=== PATIENT | female | born 1990 | race Caucasian/White ===

== ENCOUNTER 2018-10-06 16:07 | Outpatient (CLI) | payer OTHER, SELFPAY ==
[2018-10-06 16:25] LABS: HCT 40.8 % (36.0-46.0); HGB 13.4 g/dL (12.0-15.5); Mean Corp. HGB Concentration 32.8 g/dL (32.0-36.0); Mean Corpuscular Hemoglobin 30.3 pg (27.0-33.0); Mean Corpuscular Volume 92.3 fL (80-95); Mean Platelet Volume 9.6 fL (8.0-11.0); Platelet Count 255 x1000/uL (130-400); RBC 4.42 m/cumm (4.00-5.20); RBC Distribution Width 12.4 % (11.7-14.6); White Blood Cell Count 7.97 k/cumm (4.4-10.8)
[2018-10-06 18:48] LABS: ALT 17 U/L (12-78); AST 11 U/L (15-37); Albumin 3.8 g/dL (3.4-5.0); Alkaline Phosphatase 53 U/L (46-116); Anion Gap 7.8 mmol/L (3-11); BUN 14 mg/dL (7-18); Bilirubin, Total 0.2 mg/dL (0.2-1.0); CO2 28.2 mmol/L (21.0-32.0); CREATININE 0.76 mg/dL (0.55-1.02); Calcium 9.3 mg/dL (8.5-10.1); Chloride 105 mmol/L (98-107); Glucose 84 mg/dL (70-100); Potassium 4.1 mmol/L (3.5-5.1); Sodium 141 mmol/L (136-145); TSH (W/Ref FT4) 2.53 uIU/mL (0.358-3.74); Total Protein 7.1 g/dL (6.4-8.2); Vitamin B12 453 pg/mL (193-986)
[2018-10-08 04:57] LABS: Vitamin D 25 Total 35.1 ng/ml (30-100)
== END 2018-10-06 16:27 ==
PROVIDERS: PCP Nurse Practitioner; Visit Provider Nurse Practitioner
DX: R42 Dizziness and giddiness (principal); R26.89 Other abnormalities of gait and mobility; R53.83 Other fatigue
CPT/HCPCS: 36415; 80053; 82306; 85027; 82607; 84443

== ENCOUNTER 2018-10-21 17:07 | Outpatient (REF) | payer OTHER, SELFPAY ==
[2018-10-23 13:42] LABS: Chlamydia Result Negative; GC Result Negative; Specimen Description CERVIX
== END 2018-10-21 17:27 ==
LOC: LBN 17:07
PROVIDERS: PCP Nurse Practitioner; Visit Provider Nurse Practitioner
DX: N89.8 Other specified noninflammatory disorders of vagina (principal)
CPT/HCPCS: 87491; 87591; 87480; 87510; 87660

== ENCOUNTER 2018-12-31 02:27 | Outpatient (CLI) | payer OTHER, SELFPAY ==
[2018-12-31 11:20] LABS: Abs Immature Grans 0.01 k/cumm (0.0-0.09); Absolute Basophil Count 0.05 k/cumm (0.0-0.2); Absolute Eosinophil Count 0.18 k/cumm (0.0-0.7); Absolute Lymphocyte Count 1.94 k/cumm (1.2-3.4); Absolute Monocyte Count 0.45 k/cumm (0.11-0.7); Absolute Neutrophil Count 2.38 k/cumm (1.2-6.7); Eosinophils % 3.6; HCT 44.2 % (36.0-46.0); HGB 14.4 g/dL (12.0-15.5); Immature Grans % 0.2; Lymphocytes % 38.7; Mean Corp. HGB Concentration 32.6 g/dL (32.0-36.0); Mean Corpuscular Hemoglobin 29.7 pg (27.0-33.0); Mean Corpuscular Volume 91.1 fL (80-95); Neutrophils % 47.5; Platelet Count 276 x1000/uL (130-400); RBC 4.85 m/cumm (4.00-5.20); RBC Distribution Width 12.6 % (11.7-14.6); White Blood Cell Count 5.01 k/cumm (4.4-10.8)
[2018-12-31 11:27] LABS: Iron 124 ug/dL (50-175); Total Iron Binding Capacity 314 ug/dL (250-450); Transferrin Sat 39 % (15-50)
[2018-12-31 12:00] LABS: ALT 25 U/L (12-78); AST 15 U/L (15-37); Albumin 4.3 g/dL (3.4-5.0); Alkaline Phosphatase 55 U/L (46-116); Anion Gap 9.6 mmol/L (3-11); BUN 12 mg/dL (7-18); Bilirubin, Total 0.5 mg/dL (0.2-1.0); CO2 27.4 mmol/L (21.0-32.0); CREATININE 0.68 mg/dL (0.55-1.02); Calcium 9.7 mg/dL (8.5-10.1); Chloride 103 mmol/L (98-107); Ferritin 91 ng/mL (8-388); Glucose 74 mg/dL (70-100); Potassium 4.4 mmol/L (3.5-5.1); Sodium 140 mmol/L (136-145); TSH 2.45 uIU/mL (0.358-3.74); Total Protein 7.4 g/dL (6.4-8.2); Vitamin B12 593 pg/mL (193-986)
[2018-12-31 12:02] LABS: Folate > 20.0 ng/mL (8.6-20.0)
[2018-12-31 13:00] LABS: Hemoglobin A1C 5.2 % (4.5-6.2)
[2018-12-31 20:55] LABS: T3,Free 4.5 pg/ml (2.8-5.3)
[2019-01-01 09:45] LABS: Homocysteine 6.4 umol/L (4.5-12.4)
[2019-01-01 10:13] LABS: Thyroglobulin Antibody 18 U/mL (<61); Thyroperoxidase Antibody <28 U/mL (<61)
[2019-01-04 16:06] LABS: MTHFR A1298C Mutation Analysis Heterozygous (Negative); Methylenetetrahydrofol Reduc M Negative (Negative)
== END 2018-12-31 02:47 ==
PROVIDERS: PCP Nurse Practitioner; Visit Provider Naturopath
DX: F41.9 Anxiety disorder, unspecified (principal); G25.81 Restless legs syndrome; R53.83 Other fatigue; R35.0 Frequency of micturition
CPT/HCPCS: 36415; 80053; 81291; 83090; 86376; 82607; 82728; 82746; 83036; 83540; 83550; 84443; 84481; 85025

== ENCOUNTER 2019-02-03 18:49 | Emergency (ER) | payer OTHER, SELFPAY ==
[2019-02-03 19:01] VITALS: BP 122/76; PULSE 88; RESP 20; TEMP 36.6; O2SAT 100
--- NOTE | 2019-02-03 20:15 | DI.CT_ITS ---
SYMPTOM/DIAGNOSIS: TRAUMA, HEADACHE CRANIAL CT: A noncontrast enhanced examination was performed. There is no evidence of an intra or extra axial hemorrhage. There is no evidence of a mass or midline shift. The ventricles are normal. There is no evidence of a skull fracture. The sinuses are intact. There is no mastoid effusion. The soft tissues are unremarkable. SUMMARY: No acute intracranial abnormality is demonstrated.
--- NOTE | 2019-02-03 20:15 | DI.RAD_ITS ---
SYMPTOM/DIAGNOSIS: TRAUMA ELBOW PAIN RIGHT ELBOW: There is no evidence of a fracture or dislocation.
--- NOTE | 2019-02-03 20:24 | ED.GENADUL_ITS ---
Discharge Plan Disposition Patient Disposition: HOME Condition: Good Discharge Details Chief Complaint: HeadInjury Clinical Impression: Closed head injury, Contusion of elbow Primary Care Provider: Earline Fitch ED Provider: Alban Rodriguez Home Meds and New Rx's Prescriptions: Continued sertraline 50 MG tablet 150 mg PO DAILY Qty: 270 RF: 3 Mirena 1 EACH intrauterine device RF: 0 Discharge Instructions Instructions: Head Injury (ED) Additional Instructions: You may use ibuprofen or acetaminophen for headaches. Should take it easy for the next day or 2 and tell headaches resolve. If you have continued headache, fogginess, nausea next week may want to follow-up for concussion. Return to ED if you develop acute neurologic changes, severe/worsening headache, persistent vomiting. Referrals: Earline Fitch, ELECT[employer] TECHNOLOGY DEPARTMENT CHAIR [Primary Care Provider] - Medical Decision Making <Gia Rivera MD - Last Filed: 02/03/19 20:54> Pili Kasper is a 28 y/o woman with h/o anxiety, GERD who presented to the emergency department with headache and elbow pain after falling from a horse and hitting her head. On exam Pt is well and non-toxic appearing. Neuro exam is grossly non-focal. Cervical spine NTTP, full painless ROM. Elbow with bony TTP over the lateral epicondyle. Concern for intracranial bleed vs concussion, possible elbow fx. Exam/hx not c/w significant trauma otherwise to the extremities, spine, thorax, abdomen. Plan for CT head, elbow xray. Pt signed out to Dr. Rodriguez at time of shift change with CT head, xray pending. Medical Records Medical records reviewed: Yes I reviewed the patient's medical records. <Alban Rodriguez MD - Last Filed: 02/03/19 21:50> Patient signed out to me pending CT scan and elbow x-ray status post falling off a horse. Head CT and elbow x-ray are read as negative for any acute trauma per radiology prelim. Patient reevaluated and has complaint of mild headache but nothing else. He is neurologically intact. We discussed signs and symptoms to watch for. Otherwise use Tylenol Motrin for pain. Follow-up with primary care next week if continued headaches, fogginess, nausea. Return to ED for acute neurologic changes or other concerns. HPI <Gia Rivera MD - Last Filed: 02/03/19 20:54> General Mode of arrival: ambulatory . Date/Time Provider Initiated Documentation: 02/03/19 19:14 . Limitations to Documentation: no limitations . Information obtained by: patient, RN notes reviewed and old records reviewed . HPI Narrative: Pili Kasper is a 28 y/o woman with anxiety, gerd presenting to the emergency department with headache. Pt reports that this evening she was riding her horse, when the horse stopped short at a jump and Pt went forward. She fell to the ground, hitting the back of her head. No LOC, no vomiting. Was previously in her usual state of health. Pt reports that she noted blurry vision after the fall, which has improved. She reports headache and photophobia increasing over time. She also reports right elbow pain since the fall, no other injury or pain, no SOB, no cough, no skin wound, no numbness/weakness. Was previously well and in her usual state of health. Related Data Home Medications Medication Instructions Recorded Confirmed Mirena 09/14/17 11/24/18 sertraline 150 mg PO DAILY #270 tab-cap 02/19/18 02/03/19 Previous Rx's Medication Instructions Recorded sertraline 150 mg PO DAILY #270 tab-cap 02/19/18 Allergies Allergy/AdvReac Type Severity Reaction Status Date / Time Bee Sting Allergy Unknown Uncoded 02/03/19 19:13 General Stated Complaint: HeadInjury ROCHELLE: 3 Review of Systems <Gia Rivera MD - Last Filed: 02/03/19 20:54> Review of Systems Constitutional: denies fevers Eyes: denies eye pain, reprots blurry vision now resolved ENT: denies facial pain, dental pain, sore throat Cardiovascular: denies chest pain Respiratory: denies SOB, cough GI: denies abdominal pain, vomiting, diarrhea : denies flank pain MSK: denies back pain, neck pain, reports right elbow pain Skin: denies rash, wound Neuro: denies numbness, weakness, reports headache PFSH <Gia Rivera MD - Last Filed: 02/03/19 20:54> Medical History Abnormal Pap smear of cervix Ovarian cyst Anxiety and depression (Acute 12/19/17) Dysmenorrhea (Acute 11/11/14) Anxiety (Resolved) Social History Smoking/Tobacco Use Status: Never Alcohol Intake: current Alcohol Intake frequency: a few times a week Drug use: Never Household members: significant other 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 Seatbelt use: always Working smoke detector in home: Yes Carbon monox detector in home: Yes Firearms in home: Yes Firearms unloaded and locked: No Do you feel safe at home: Yes Do you feel safe in your relationship?: Yes Exam <Gia Rivera MD - Last Filed: 02/03/19 20:54> Narrative Exam Narrative: Constitutional: well and [id number], pleasant, conversing normally HENT: head atraumatic/normocephalic/normal inspection, mucous membranes moist Eyes: conjunctiva normal, sclera normal, pupils 3mm b/l ERRLA, EOMI Neck: no stridor, full painless ROM, trachea midline, no cervical spine TTP Resp: normal work of breathing Cardio: normal rate, normal rhythm Skin: warm, dry, normal color, no rash Neuro: alert, not altered, grossly non-focal, normal tone Ext: no edema Psych: normal mood, normal affect, normal behavior Course <Gia Rivera MD - Last Filed: 02/03/19 20:54> Vital Signs Temperature 36.6 C 02/03/19 19:01 Pulse 88 02/03/19 19:01 Respiratory Rate 20 02/03/19 19:01 Blood Pressure 122/76 02/03/19 19:01 Pulse Oximetry 100 02/03/19 19:01 Temperature 36.6 C 02/03/19 19:01 Temperature Source Tympanic 02/03/19 19:01 Pulse 88 02/03/19 19:01 Respiratory Rate 20 02/03/19 19:01 Respiratory Effort Non-Labored 02/03/19 19:07 Respiratory Depth Normal 02/03/19 19:07 Respiratory Pattern Irregular 02/03/19 19:07 Blood Pressure 122/76 02/03/19 19:01 Blood Pressure Position Sitting 02/03/19 19:01 Pulse Oximetry 100 02/03/19 19:01 Oxygen Delivery Method Room Air 02/03/19 19:01 Oxygen Flow Rate 0 02/03/19 19:01 Pain Level 7 02/03/19 19:01 Sign Out <Gia Rivera MD - Last Filed: 02/03/19 20:54> Sign Out Data: Sign Out Comment: Pt signed out to Dr. Rodriguez at shift change with CT head, elbow xray pending Last updated by Gia Rivera MD at 02/03/19 20:38
--- NOTE | 2019-02-03 21:26 | DI.VRAD_ITS ---
EXAM: CT Head Without Contrast EXAM DATE/TIME: 02/03/2019 8:16 PM CLINICAL HISTORY: 28 years old, female; Injury or trauma; Initial encounter; Blunt trauma (contusions or hematomas); Consciousness not specified; Injury date: 02/03/2019; Injury details: Fall from horse TECHNIQUE: Imaging protocol: Axial computed tomography images of the head without contrast. Coronal and sagittal reformatted images were created and reviewed. Radiation optimization: All CT scans at this facility use at least one of these dose optimization techniques: automated exposure control; mA and/or kV adjustment per patient size (includes targeted exams where dose is matched to clinical indication); or iterative reconstruction. COMPARISON: No relevant prior studies available. FINDINGS: Brain: No evidence for acute transcortical infarct. No mass effect or midline shift. No extra-axial collection. No acute intracranial hemorrhage. Basal cisterns are patent. Ventricles: Normal. No ventriculomegaly. Bones/joints: Unremarkable. No acute fracture. Sinuses: Visualized sinuses are unremarkable. No fluid levels. Mastoid air cells: Visualized mastoid air cells are well aerated. No mastoid effusion. Soft tissues: Unremarkable. IMPRESSION: No acute intracranial hemorrhage or mass effect. Dictated and Authenticated by: Andrez Cortes MD. Ordering:BERRY Nielsen MD
--- NOTE | 2019-02-03 21:36 | DI.VRAD_ITS ---
EXAM: XR Right Elbow EXAM DATE/TIME: 02/03/2019 8:16 PM CLINICAL HISTORY: 28 years old, female; Injury or trauma; Initial encounter; Blunt trauma (contusions or hematomas; Elbow; Right; Injury date: 02/03/2019; Injury details: Fall from horse TECHNIQUE: Imaging protocol: XR Right elbow. Views: 3 or more views. COMPARISON: No relevant prior studies available. FINDINGS: Bones/joints: Joint spaces are maintained. No appreciable elbow joint effusion. No acute fracture or dislocation. Soft tissues: No radiopaque foreign body. IMPRESSION: No acute fracture or dislocation. Dictated and Authenticated by: Andrez Cortes MD. Ordering:BERRY Nielsen MD
[2019-02-03 21:56] VITALS: BP 122/76; PULSE 86; RESP 16; O2SAT 100
== END 2019-02-03 21:56 | disposition home or self-care (01) ==
PROVIDERS: Emergency Provider Emergency Medicine; PCP Nurse Practitioner
DX: S06.0X0A Concussion without loss of consciousness, initial encounter (principal); S50.01XA Contusion of right elbow, initial encounter; V80.010A Animal-rider injured by fall from or being thrown from horse in noncollision accident, initial encounter
CPT/HCPCS: 99284; 70450; 73080

== ENCOUNTER 2019-02-05 11:49 | Outpatient (CLI) | payer OTHER, SELFPAY ==
--- NOTE | 2019-02-05 12:00 | DI.RAD_ITS ---
SYMPTOM/DIAGNOSIS: HEAD TRAUMA BY HORSE (2ND INJURY IN 2 DAYS) S09.90XA R51 LEFT MANDIBLE: There is an oblique fracture involving the neck of the left mandible. There is overriding of the fracture. There also appears to be lateral angulation of the fracture. The left temporomandibular joint appears intact. No other fractures appreciated. IMPRESSION: Fracture involving the neck of the left mandible as described above.
== END 2019-02-05 12:09 ==
PROVIDERS: PCP Nurse Practitioner; Visit Provider Nurse Practitioner Adult Health
DX: R51 Headache (principal); R68.84 Jaw pain; S02.612A Fracture of condylar process of left mandible, initial encounter for closed fracture
CPT/HCPCS: 70110

== ENCOUNTER 2019-03-04 18:33 | Observation (INO) | payer OTHER, SELFPAY ==
[2019-03-04] VITALS (7 sets, daily range): BP systolic 101; BP diastolic 65–66; PULSE 90–101; RESP 16–21; TEMP 36.6–37.3; O2SAT 98–100
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
[2019-03-04 19:13] LABS: Abs Immature Grans 0.05 k/cumm (0.0-0.09); Absolute Basophil Count 0.03 k/cumm (0.0-0.2); Absolute Lymphocyte Count 1.67 k/cumm (1.2-3.4); Absolute Monocyte Count 0.65 k/cumm (0.11-0.7); Absolute Neutrophil Count 10.45 k/cumm (1.2-6.7); Basophils % 0.2; Eosinophils % 0.8; HGB 14.8 g/dL (12.0-15.5); Immature Grans % 0.4; Lymphocytes % 12.9; Mean Corp. HGB Concentration 33.6 g/dL (32.0-36.0); Mean Corpuscular Hemoglobin 30.3 pg (27.0-33.0); Mean Platelet Volume 9.5 fL (8.0-11.0); Neutrophils % 80.7; Platelet Count 314 x1000/uL (130-400); RBC 4.89 m/cumm (4.00-5.20); RBC Distribution Width 12.8 % (11.7-14.6); White Blood Cell Count 12.95 k/cumm (4.4-10.8)
[2019-03-04] MEDS: Ketorolac 30 MG/ML VIAL IVP (19:17)
[2019-03-04] MEDS: Omnipaque 350 MG/ML 100 ML BTL IJ (19:32)
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
[2019-03-04 19:59] LABS: ALT 22 U/L (12-78); AST 21 U/L (15-37); Albumin 4.6 g/dL (3.4-5.0); Alkaline Phosphatase 68 U/L (46-116); Anion Gap 11.7 mmol/L (3-11); BUN 14 mg/dL (7-18); Bilirubin, Total 0.3 mg/dL (0.2-1.0); CO2 25.3 mmol/L (21.0-32.0); CREATININE 0.61 mg/dL (0.55-1.02); Calcium 9.8 mg/dL (8.5-10.1); Chloride 102 mmol/L (98-107); Glucose 81 mg/dL (70-100); Potassium 3.4 mmol/L (3.5-5.1); Sodium 139 mmol/L (136-145); Total Protein 8.3 g/dL (6.4-8.2)
[2019-03-04] MEDS: Normal Saline 1,000 ML 30 ML IV (22:20)
[2019-03-05 00:30] VITALS: BP 107/69; PULSE 72; RESP 18; TEMP 37; O2SAT 100
[2019-03-05] MEDS: Acetaminophen 325 MG TAB 650 MG PO ×3 (00:30→13:37)
[2019-03-05 05:35] VITALS: BP 110/68; PULSE 77; RESP 19; TEMP 37.2; O2SAT 100
[2019-03-05] MEDS: Normal Saline Flush 10 ML SYR IVP ×2 (06:50→13:36)
[2019-03-05] MEDS: Ketorolac 30 MG/ML VIAL IVP ×2 (06:50→13:37)
--- NOTE | 2019-03-05 08:10 | DI.RAD_ITS ---
SYMPTOMS/DIAGNOSIS: LEFT PNEUMOTHORAX CHEST X-RAY, PA AND LATERAL: Pneumothorax occupies approximately 15-20% of the left hemithorax. There is a small left pleural effusion. The lungs are otherwise clear. Left rib and transverse process fractures are best appreciated on the CT scan of the chest, abdomen and pelvis. IMPRESSION: Left pneumothorax.
[2019-03-05 08:27] LABS: Abs Immature Grans 0.03 k/cumm (0.0-0.09); Absolute Basophil Count 0.01 k/cumm (0.0-0.2); Absolute Eosinophil Count 0.18 k/cumm (0.0-0.7); Absolute Lymphocyte Count 1.73 k/cumm (1.2-3.4); Absolute Monocyte Count 0.68 k/cumm (0.11-0.7); Basophils % 0.1; Eosinophils % 2.3; HCT 41.4 % (36.0-46.0); HGB 13.5 g/dL (12.0-15.5); Immature Grans % 0.4; Lymphocytes % 21.7; Mean Corp. HGB Concentration 32.6 g/dL (32.0-36.0); Mean Corpuscular Hemoglobin 30.1 pg (27.0-33.0); Mean Corpuscular Volume 92.2 fL (80-95); Mean Platelet Volume 10.1 fL (8.0-11.0); Monocytes % 8.5; Platelet Count 287 x1000/uL (130-400); RBC 4.49 m/cumm (4.00-5.20); White Blood Cell Count 7.99 k/cumm (4.4-10.8)
[2019-03-05 08:29] LABS: Absolute Neutrophil Count 5.35 k/cumm (1.2-6.7)
[2019-03-05 08:40] VITALS: BP 116/73; PULSE 81; RESP 18; TEMP 36.3; O2SAT 99
[2019-03-05 11:10] VITALS: BP 106/72; PULSE 81; RESP 18; TEMP 36.4; O2SAT 98
[2019-03-05] MEDS: Bupivacaine 0.25% Pres-Free 30 ML VIAL (11:32)
[2019-03-05] MEDS: Bupivacaine LIPOSOME/PF 133 MG/10 ML VIAL IJ (11:32)
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
== END 2019-03-05 15:08 | disposition home or self-care (01) ==
LOC: ER 20:32 → MS 21:25
PROVIDERS: Emergency Medicine; Admitting Provider Surgery; Emergency Provider Emergency Medicine; PCP Nurse Practitioner; Visit Provider Surgery
DX: S27.0XXA Traumatic pneumothorax, initial encounter (principal); S22.42XA Multiple fractures of ribs, left side, initial encounter for closed fracture; S22.068A Other fracture of T7-T8 thoracic vertebra, initial encounter for closed fracture; S22.078A Other fracture of T9-T10 vertebra, initial encounter for closed fracture; V19.9XXA Pedal cyclist (driver) (passenger) injured in unspecified traffic accident, initial encounter; Y93.55 Activity, bike riding; R07.9 Chest pain, unspecified
CPT/HCPCS: 36415; 74177; 76942; 80053; 81025; 99238; 99285; 71046; 71260; 85025; 99284; G0378; J1885; J3490

== ENCOUNTER 2019-03-08 12:34 | Outpatient (CLI) | payer OTHER, SELFPAY ==
--- NOTE | 2019-03-08 13:00 | DI.RAD_ITS ---
SYMPTOMS/DIAGNOSIS: F/U LT PNEUMOTHORAX PA AND LATERAL CHEST: Comparison is 03/05/19. The heart size and pulmonary vasculature are within normal limits. There is a persistent small left pneumothorax. It is unchanged in size compared to the prior examination. There is blunting of the left costophrenic angle which may represent a tiny left pleural effusion. No right pneumothorax or pleural effusion is seen. IMPRESSION: Stable small left pneumothorax.
== END 2019-03-08 12:54 ==
PROVIDERS: PCP Nurse Practitioner; Visit Provider Surgery
DX: S27.0XXD Traumatic pneumothorax, subsequent encounter (principal); J90 Pleural effusion, not elsewhere classified
CPT/HCPCS: 71046

== ENCOUNTER 2019-03-16 12:57 | Outpatient (CLI) | payer OTHER, SELFPAY ==
--- NOTE | 2019-03-16 11:27 | DI.RAD_ITS ---
SYMPTOMS/DIAGNOSIS: F/U LT PNEUMOTHORAX, J93.9 CHEST: Frontal and lateral views. Comparison 03/08/19. The heart size and pulmonary vasculature are within normal limits. There is no demonstrable residual pneumothorax identified. The lungs are clear. No effusions are present. IMPRESSION: No evidence of a left pneumothorax.
== END 2019-03-16 13:17 ==
PROVIDERS: PCP Nurse Practitioner; Visit Provider Physical Therapy Assistant
DX: J93.9 Pneumothorax, unspecified (principal)
CPT/HCPCS: 71046

== ENCOUNTER 2019-08-09 15:30 | Outpatient (REF) | payer OTHER, SELFPAY | END 2019-08-09 15:50 | LOC: LBN 15:30 | PROVIDERS: PCP Nurse Practitioner; Visit Provider Nurse Practitioner | DX: N89.8 Other specified noninflammatory disorders of vagina (principal) | CPT/HCPCS: 87480; 87510; 87660 ==

== ENCOUNTER 2019-09-20 16:53 | Outpatient (REF) | payer OTHER, SELFPAY ==
--- NOTE | 2019-09-20 15:45 | PAPFT_PTH ---
PATIENT: Pili Kasper LOC: [facility] U#:[id number] AGE/SX: 29/F ROOM: RE09/20/[address]: RENE De La Rosa : 1990 BED: DIS: 09/20/2019 SPEC #: [id number] RECD: 09/20/19 17:42 STATUS: JENI REMatt #: [id number] ALEXANDRA: 09/20/19 15:[address]: Anahy Landeros [facility]PT: [facility] Cytology RECD BY: Annette Moody ENTERED: 09/20/19 17:42 SP TYPE: PAPFT MATY DR: Earline Fitch APRN Tissues: 1 - CX/ENDOCX FOR PAP SMEARS Procedures: PAP THIN PREP/U[facility] Screening Comments: [id number]
[2019-09-22 12:39] LABS: Chlamydia Result Negative (Negative); GC Result Negative (Negative)
== END 2019-09-20 17:13 ==
LOC: LBN 16:53
PROVIDERS: PCP Nurse Practitioner; Visit Provider Nurse Practitioner Family
DX: Z11.3 Encounter for screening for infections with a predominantly sexual mode of transmission (principal); Z12.4 Encounter for screening for malignant neoplasm of cervix
CPT/HCPCS: 87491; 87591; 88142

== ENCOUNTER 2020-03-17 02:25 | Outpatient (CLI) | payer OTHER, SELFPAY ==
[2020-03-17 10:24] LABS: ALT 18 U/L (14-59); AST 10 U/L (15-37); Albumin 4.3 g/dL (3.4-5.0); Alkaline Phosphatase 52 U/L (46-116); Anion Gap 11.5 mmol/L (3-11); BUN 10 mg/dL (7-18); Bilirubin, Total 0.6 mg/dL (0.2-1.0); CO2 25.5 mmol/L (21.0-32.0); CREATININE 0.71 mg/dL (0.55-1.02); Calcium 9.4 mg/dL (8.5-10.1); Chloride 105 mmol/L (98-107); Glucose 112 mg/dL (74-106); Sodium 142 mmol/L (136-145); Total Protein 7.3 g/dL (6.4-8.2)
[2020-03-20 09:59] LABS: Hep B Core Antibody Negative (Negative)
[2020-03-20 11:06] LABS: Varicella IgG Antibody Positive (See Note)
[2020-03-20 11:12] LABS: Measles IgG Antibody Positive (See Note); Mumps Antibody IgG Negative (See Note); Rubella IgG Ab (UVM) Positive (See Note)
== END 2020-03-17 02:45 ==
PROVIDERS: PCP Nurse Practitioner Adult Health; Visit Provider Nurse Practitioner Adult Health
DX: Z02.0 Encounter for examination for admission to educational institution
CPT/HCPCS: 36415; 80053; 86704; 86787; 86735; 86762; 86765

== ENCOUNTER 2020-04-11 07:07 | Outpatient (CLI) | payer OTHER, SELFPAY ==
[2020-04-13 23:54] LABS: SARS-CoV-2 RNA Undetected (Undetected); SARS-CoV-2 Specimen Source Nasopharynx
== END 2020-04-11 07:27 ==
PROVIDERS: PCP Nurse Practitioner Adult Health; Visit Provider Nurse Practitioner Adult Health
DX: Z11.59 Encounter for screening for other viral diseases (principal)
CPT/HCPCS: U0003

== ENCOUNTER 2020-07-18 08:28 | Outpatient (CLI) | payer OTHER, SELFPAY ==
[2020-07-20 22:54] LABS: Patient Race White; SARS-CoV-2 RNA Undetected (Undetected); SARS-CoV-2 Specimen Source Nasal
== END 2020-07-18 08:48 ==
PROVIDERS: PCP Nurse Practitioner Adult Health; Visit Provider Nurse Practitioner Adult Health
DX: Z11.59 Encounter for screening for other viral diseases (principal)
CPT/HCPCS: U0003

== ENCOUNTER 2020-07-25 16:40 | Outpatient (REF) | payer OTHER, SELFPAY ==
[2020-07-27 14:57] LABS: Chlamydia Result Negative (Negative); GC Result Negative (Negative)
== END 2020-07-25 17:00 ==
LOC: LBN 16:40
PROVIDERS: PCP Nurse Practitioner Adult Health; Visit Provider Nurse Practitioner Family
DX: Z11.3 Encounter for screening for infections with a predominantly sexual mode of transmission (principal)
CPT/HCPCS: 87491; 87591

== ENCOUNTER 2020-07-27 08:55 | Outpatient (CLI) | payer OTHER, SELFPAY | END 2020-07-27 09:15 | PROVIDERS: PCP Nurse Practitioner Adult Health; Visit Provider Nurse Practitioner Adult Health | DX: R00.2 Palpitations (principal) | CPT/HCPCS: 0296T ==

== ENCOUNTER 2020-07-31 01:06 | Outpatient (CLI) | payer OTHER, SELFPAY ==
--- NOTE | 2020-07-31 06:30 | DI.US_ITS ---
EXAM: US PELVIS TRANSVAGINAL CLINICAL HISTORY: Pain with intercourse,N94.10. TECHNIQUE: Transabdominal and transvaginal pelvic ultrasound was performed using standard protocol. COMPARISON: No exams were available for comparison FINDINGS: KIDNEYS: Kidneys are symmetric in size. No evidence of renal calculi. No evidence of hydronephrosis. No renal mass or cyst identified. UTERUS: Position: Anteverted. Size: Measures 6.6 centimetres in length by 3.8 centimeters AP x 5.9 centimetres wide. There are no uterine fibroids. There is no fluid in the endometrial canal. Endometrial stripe thickness is 3 mil limeter. OVARIES: Right: Measures 2.5 x 1.2 x 1.1 center cm Cyst or mass: In the central aspect of the right ovary there is a 10 by 6 millimeter structure which has the appearance of a collapsing cyst. There is some fluid in the ipsilateral-right adnexa. Remai nder of the findings in the right ovary are age-appropriate follicular cysts, all less than [address] size. Left: Measures 3.0 x 1.6 x 1.4 centimeter and contains small follicles, all less than 1 centimeter. Significant cyst or mass: None. IMPRESSION: 1. Normal sonographic appearance of the kidneys. 2. Normal-appearing uterus with endometrial stripe within normal limits. No uterine fibroids evident . 3. Collapsing cyst as described above in the right ovary, measuring technique 10 x 6 millimeters. Sm all amount of fluid in the right adnexa also noted 4. DATA REPOSITORY:
== END 2020-07-31 01:26 ==
PROVIDERS: PCP Nurse Practitioner Adult Health; Visit Provider Nurse Practitioner Family
DX: N94.10 Unspecified dyspareunia (principal); N83.291 Other ovarian cyst, right side
CPT/HCPCS: 76830; 76856

== ENCOUNTER 2020-07-31 02:59 | Outpatient (CLI) | payer OTHER, SELFPAY ==
[2020-07-31 10:03] LABS: Calculated LDL 70 mg/dL (<100); Cholesterol 138 mg/dL (<200); HDL Cholesterol 61 mg/dL (40-60); TSH (W/Ref FT4) 2.17 uIU/mL (0.36-3.74); Triglyceride 36 mg/dL (<150)
== END 2020-07-31 03:19 ==
PROVIDERS: PCP Nurse Practitioner Adult Health; Visit Provider Nurse Practitioner Adult Health
DX: F41.9 Anxiety disorder, unspecified (principal); F32.9 Major depressive disorder, single episode, unspecified; Z13.220 Encounter for screening for lipoid disorders
CPT/HCPCS: 36415; 80061; 84443

== ENCOUNTER 2020-08-02 01:23 | Outpatient (CLI) | payer OTHER, SELFPAY ==
--- NOTE | 2020-08-02 06:15 | DI.US_ITS ---
EXAM: US THYROID CLINICAL HISTORY: assess thryoid--enlarged on exam b/l,palpitations,r00.2,e04.9. TECHNIQUE: Ultrasound thyroid performed using standard protocol. COMPARISON: No exams were available for comparison FINDINGS: Both thyroid lobes exhibit normal size, as does the isthmus.. In the right thyroid lobe there is a solitary finding at the midpole level which has the appearance o f a small colloid cyst measuring 2 millimeters x 3 millimeters. In the left thyroid lobe there is also a solitary finding at the midpole level measuring 2 x 2 millim eters, either a small slightly complicated colitis is or is small benign-appearing nodule. IMPRESSION: Single small benign-appearing finding in each lobe as described above. Thyroid gland exhibits normal size TiRads 2 DATA REPOSITORY:
== END 2020-08-02 01:43 ==
PROVIDERS: PCP Nurse Practitioner Adult Health; Visit Provider Nurse Practitioner Adult Health
DX: E04.2 Nontoxic multinodular goiter (principal); R00.2 Palpitations
CPT/HCPCS: 76536

== ENCOUNTER 2020-08-10 18:49 | Outpatient (REF) | payer OTHER, SELFPAY ==
--- NOTE | 2020-08-11 08:44 | W.ZIOMONITOR ---
Date of service: 08/11/20 Time of Service: 08:44 14 Day [employer] Referring Provider:: Larry Indications:: Palps Note: This is a 14-day monitor ordered for indication of palpitations. ?The patient was in normal sinus rhythm for the majority of the recording with an average heart rate of 82 bpm. ?There were no PACs and no PVCs. ?There were no episodes of supraventricular tachycardia nor any episodes of ventricular tachycardia. ?There were no episodes of atrial fibrillation, no pauses greater than 3 seconds and no evidence of high degree heart block. ?There were 14 patient triggered events all associated with sinus rhythm or sinus tachycardia.
[2020-08-11 20:05] LABS: Influenza A RNA Result Negative (Negative); Influenza B RNA Result Negative (Negative); RSV RNA Result Negative (Negative)
[2020-08-14 12:07] LABS: COVID-19 RT-PCR Result NEGATIVE (Negative)
== END 2020-08-10 19:09 ==
LOC: LBN 18:49
PROVIDERS: PCP Nurse Practitioner Adult Health; Visit Provider Student in an Organized Health Care Education/Training Program
DX: J34.89 Other specified disorders of nose and nasal sinuses (principal); Z20.828 Contact with and (suspected) exposure to other viral communicable diseases
CPT/HCPCS: 87631; U0003

== ENCOUNTER 2020-10-31 01:52 | Outpatient (CLI) | payer OTHER, SELFPAY ==
--- NOTE | 2020-10-31 07:15 | DI.MRI_ITS ---
EXAM: MR BRAIN WO CLINICAL HISTORY: PARESTHESIAS,R20.2, ? MULTIPLE SCLEROSIS TECHNIQUE: Multiplanar multisequence MRI of the brain was performed. COMPARISON: CT CT HEAD WO from 02/03/2019 FINDINGS: The examination is limited due to patient motion artifact. VENTRICLES AND EXTRA AXIAL SPACES: Normal in size and morphology for the patient's age. MIDLINE SHIFT: None. CEREBRAL PARENCHYMA: No focus of restricted diffusion to suggest acute infarct. No space-occupying le severiano identified. No white matter lesions are identified. HEMORRHAGE: None. BRAINSTEM/CEREBELLUM: Normal. CALVARIUM: Normal. VISUALIZED PARANASAL SINUSES/MASTOIDS:Clear. [place]: Normal flow void. PITUITARY GLAND: Unremarkable. OTHER FINDINGS: None. IMPRESSION: Unremarkable MRI of the brain. DATA REPOSITORY:
== END 2020-10-31 02:12 ==
PROVIDERS: PCP Nurse Practitioner Adult Health; Visit Provider Psychiatry & Neurology Neurology
DX: R20.2 Paresthesia of skin (principal)
CPT/HCPCS: 70551

== ENCOUNTER 2020-11-20 02:29 | Outpatient (CLI) | payer OTHER, SELFPAY ==
--- NOTE | 2020-11-20 13:34 | DI.US_ITS ---
APPROVED REPORT EXAM: Comprehensive 2D, Doppler, and color-flow Echocardiogram Patient Location: Out-Patient Piano Assembler: Roxana Hoskins RDCS (AE) Indications: Dizziness Other Information Study Quality: Good Conclusion Left Ventricle : The left ventricle is normal size. The left ventricular systolic function is normal. The left ventricular ejection fraction is within the normal range. There is normal left ventricular wall thickness. There is normal LV segmental wall motion. The left ventricular diastolic function is normal. LVEF is 65%. Right Ventricle : The right ventricle is normal size. The right ventricular systolic function is norm al. The RVSP is 13.5mmHg. Atria : The left atrium size is normal. The right atrium size is normal. Mitral Valve : The mitral valve is normal in structure. Trace to mild mitral regurgitation. No eviden ce of mitral valve stenosis. Great Vessels : The aortic root is normal in size. The ascending aorta is normal in size. Aortic arch is normal in caliber. IVC is normal in size and collapses >50% with inspiration. Please see remainder of study for further details. Wall motion Left Ventricle The left ventricle is normal size. The left ventricular systolic function is normal. The left ventric ular ejection fraction is within the normal range. There is normal left ventricular wall thickness. T here is normal LV segmental wall motion. The left ventricular diastolic function is normal. There is no ventricular septal defect visualized. LVEF is 65%. Right Ventricle The right ventricle is normal size. The right ventricular systolic function is normal. The RVSP is 13 .5mmHg. Atria The left atrium size is normal. The right atrium size is normal. The interatrial septum is intact wit h no evidence for an atrial septal defect. Aortic Valve The aortic valve is normal in structure. Aortic valve is trileaflet. There is no aortic valvular sten osis. No aortic regurgitation is present. Mitral Valve The mitral valve is normal in structure. No evidence of mitral valve stenosis. Trace to mild mitral r egurgitation. Tricuspid Valve The tricuspid valve is normal in structure. There is no tricuspid valve stenosis. Trace tricuspid reg urgitation. Pulmonic Valve The pulmonary valve is normal in structure. There is no pulmonic valvular stenosis. There is no pulmo kenia valvular regurgitation. Great Vessels The aortic root is normal in size. The ascending aorta is normal in size. Aortic arch is normal in ca liber. IVC is normal in size and collapses >50% with inspiration. Pericardium There is no pericardial effusion. 2D Dimensions IVSD d PLAX 0.74 cm F: 0.6-1.0 LV Vol A2C d MOD 83.5 mL LVPW d PLAX 0.76 cm F: 0.6 - 1.0 LV Vol A4C d MOD 84.3 mL LVID d PLAX 4.25 cm F: 3.8 - 5.2 LA vol/ BSA A2C s A-L 14.5 mL/m2 LVDs 2.65 cm F: 2.2 - 3.5 LA vol/ BSA A4C s A-L 22.1 mL/m2 Ao Root d 2.95 cm F: 2.7 - 3.3 LA Vol/ BSA Biplane s A-L 18.9 mL/m2 RA Area A4C 10.48 cm2 LA Area A4C s MOD 14.57 cm2 RA Vol/ BSA A4C s A-L 13.7 mL/m2 LA Area A2C s MOD 11.18 cm2 Ao Asc Diam d 2.65 cm F: 2.3 - 3.1 LV EF A4C MOD 65.0 % LV EF Teichholz 67.3 % LV EF A2C MOD 65.8 % LVEF (Todd's) 65.16 % F: 54 - 74 LV EF Biplane MOD 65.2 % LV Volume 68.14 mL F: 46 - 106 SV 55.98 mL LV Volume Index 40.08 mL/m2 F: 29 - 61 SV Index 32.82 mL/m2 LV Vol Biplane MOD 85.9 mL FS 37.00 % M-Mode TAPSE 2.10 cm (M/F) >1.7 LV Diastology MV E' medial 0.131 (>0.07 m/s) E/A Ratio 1.4 LV E/e MED 7.65 (<14) MV E Vmax 1.01 (0.4-1.3 m/s) MV E' lateral 0.188 (>0.1 m/s) MV A Vmax 0.70 (0.4-1.3 m/s) LV E/e LAT 5.35 (<14) MV E/A Ratio 1.43 MV E/E' medial 7.68 MV E/E' lateral 5.36 Aortic Valve LVOT Area 2.68 cm2 AoV Area Vmax 2.54 cm2 LVOT Vmax 1.37 m/s AoV Area/ BSA (Vmax) 1.49 cm2/m2 LVOT Mean Kevan. 0.87 m/s ANABELL Mean Kevan. 2.39 cm2 LVOT Peak Grad 7.5 mmHg ANABELL Mean Kevan. Index 1.40 cm2/m2 LVOT Mean Grad 3.6 mmHg LVOT VTI 0.279 m LVOT Diam s 1.80 cm AoV Vmax 1.45 m/s Velocity Ratio 0.94 AoV Mean Kevan. 0.98 m/s AoV Peak Grad 8.4 mmHg LVOT SV 74.74 mL AoV Mean Grad 4.3 mmHg AoV VTI 0.274 m AoV Area VTI 2.73 cm2 AoV Area/ BSA (VTI) 1.60 cm/m2 Mitral Valve MV DT 218 (160-240 msec) MV PHT 63 msec MV Area PHT 3.48 cm2 MV VTI 0.294 m MV VTI Annulus 0.316 m MV Area VTI 2.74 (4.0-6.0 cm2) Pulmonary Valve PV Vmax 1.10 (0.5-1.5 m/s) RVOT Peak Gr. 3.43 mmHg PV Peak Grad 4.9 mmHg RVOT Mean Gr. 1.60 mmHg PV Mean Grad 2.2 mmHg RVOT VTI 0.172 m PV VTI 0.216 m RVOT Vmax 0.93 m/s Tricuspid Valve TR Peak Grad 10.5 mmHg TR Vmax 1.62 m/s RA Pressure 3.00 mmHg RVSP (TR) 13.5 mmHg
== END 2020-11-20 02:49 ==
PROVIDERS: PCP Nurse Practitioner Adult Health; Visit Provider Internal Medicine Cardiovascular Disease
DX: R42 Dizziness and giddiness (principal); I34.0 Nonrheumatic mitral (valve) insufficiency
CPT/HCPCS: 93306

== ENCOUNTER 2021-01-27 15:26 | Emergency (ER) | payer OTHER, SELFPAY ==
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
[2021-01-27 15:32] VITALS: BP 110/84; PULSE 114; RESP 18; TEMP 36.7; O2SAT 98
--- NOTE | 2021-01-27 16:00 | DI.CT_ITS ---
Exam(s) CT HEAD CERVICAL SPINE WO EXAM: CT HEAD CERVICAL SPINE WO COMPARISON: CT CT HEAD WO from 02/03/2019 FINDINGS: CT examination of the cervical spine was performed without contrast administration. There is no evidence of acute cervical spine fracture or dislocation. Intervertebral disc spaces are well maintained. Tracheolaryngeal structures appear intact. No cervical mass or adenopathy. Noncontrast cranial CT was performed. Ventricular system is normal in appearance. No evidence of acute intracranial hemorrhage, mass effect, or midline shift. No calvarial fracture. The orbital and temporal bone structures appear intact. Visualized mastoid air cells and paranasal sinuses appear clear. IMPRESSION: No evidence of acute cervical spine injury. No evidence of acute intracranial injury. RADIATION DOSE DELIVERED: 1,101.38mGy.cm Total DLP 1,101.38mGy.cm Total DLP DATA REPOSITORY: All CT scans at this facility are submitted to the National Radiology Data Registry (NRDR) Dose Index Registry (DIR) with the [employer] ([employer]). RADIATION OPTIMIZATION: All CT scans at this facility use at least one of these dose optimization te chniques: automated exposure control; mA and/or kV adjustment per patient size (includes targeted exa ms where dose is matched to clinical indication); or iterative reconstruction.
[2021-01-27] MEDS: Normal Saline 1,000 ML 1000 ML IV (16:15)
[2021-01-27 16:24] LABS: Abs Immature Grans 0.04 10^3/uL (0.0-0.06); Absolute Basophil Count 0.03 10^3/uL (0.0-0.2); Absolute Eosinophil Count 0.11 10^3/uL (0.0-0.7); Absolute Lymphocyte Count 1.45 10^3/uL (1.2-3.4); Absolute Monocyte Count 0.56 10^3/uL (0.1-0.8); Basophils % 0.3; HCT 39.6 % (36.0-46.0); HGB 13.3 g/dL (11.2-15.7); Immature Grans % 0.4; Lymphocytes % 13.2; MCH 30.1 pg (27.0-33.0); MCHC 33.6 % (32.0-36.0); MCV 89.6 fL (80-95); MPV 9.4 fL (8.0-11.0); Monocytes % 5.1; Nucleated RBC 0 %; Platelet Count 278 10^3/uL (130-400); RBC 4.42 10^6/uL (3.93-5.22); RDW 11.9 % (11.7-14.6); RDW-SD 39.1 fL; WBC 11.02 10^3/uL (4.4-10.8)
[2021-01-27 16:29] LABS: Absolute Neutrophil Count 8.82 10^3/uL (1.2-6.7)
[2021-01-27] MEDS: ACETAMINOPHEN 1,000 MG/100 ML BTL 400 MG IVPB (16:44)
[2021-01-27 16:49] LABS: ALT 21 U/L (14-59); AST 15 U/L (15-37); Albumin 4.1 g/dL (3.4-5.0); Alkaline Phosphatase 65 U/L (46-116); Anion Gap 10.7 mmol/L (3-11); BUN 14 mg/dL (7-18); Bilirubin, Total 0.2 mg/dL (0.2-1.0); CO2 24.3 mmol/L (21.0-32.0); CREATININE 0.8 mg/dL (0.55-1.02); Calcium 9.2 mg/dL (8.5-10.1); Chloride 104 mmol/L (98-107); Glucose 89 mg/dL (74-106); Potassium 3.3 mmol/L (3.5-5.1); Sodium 139 mmol/L (136-145); Total Protein 7.2 g/dL (6.4-8.2)
--- NOTE | 2021-01-27 17:00 | RT.EKG_ITS ---
APPROVED REPORT Exam: Resting ECG Reason for Exam: dizziness Patient Location: E HR:88 bpm ECG Measurements Heart Rate 88 AXIS MT 131 P 32 QRSd 95 QRS 79 QT 377 T 45 QTc 456 Conclusion Sinus rhythm...normal P axis, V-rate 60- 99 No STEMI. I have reviewed and interpreted ECG and agree with software generated interpretation.
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
[2021-01-27] MEDS: Potassium Chloride 20 MEQ TABCR 40 MEQ PO (17:25)
[2021-01-27 17:26] VITALS: BP 110/63; PULSE 92; RESP 14; TEMP 36.5; O2SAT 100
[2021-01-27 18:07] VITALS: BP 114/65; PULSE 64; RESP 18; TEMP 36.6; O2SAT 100
== END 2021-01-27 18:22 | disposition home or self-care (01) ==
PROVIDERS: Emergency Provider Physician Assistant; PCP Nurse Practitioner Adult Health
DX: S16.1XXA Strain of muscle, fascia and tendon at neck level, initial encounter (principal); S80.811A Abrasion, right lower leg, initial encounter; R51.9 Headache, unspecified; V18.0XXA Pedal cycle driver injured in noncollision transport accident in nontraffic accident, initial encounter; Y93.55 Activity, bike riding; E87.6 Hypokalemia; R42 Dizziness and giddiness; F41.9 Anxiety disorder, unspecified
CPT/HCPCS: 36415; 80053; 81025; 93005; 96361; 96374; 99285; 70450; 72125; 85025; 93010; J0131

== ENCOUNTER 2021-02-05 19:12 | Outpatient (REF) | payer OTHER, SELFPAY ==
[2021-02-07 14:11] LABS: Chlamydia Result Negative (Negative); GC Result Negative (Negative)
== END 2021-02-05 19:13 | disposition home or self-care (01) ==
LOC: LBN 19:12
PROVIDERS: PCP Nurse Practitioner Adult Health; Visit Provider Nurse Practitioner Family
DX: Z11.3 Encounter for screening for infections with a predominantly sexual mode of transmission (principal)
CPT/HCPCS: 87491; 87591

== ENCOUNTER 2021-06-12 02:49 | Outpatient (CLI) | payer OTHER, SELFPAY ==
[2021-06-12 10:00] LABS: Abs Immature Grans 0.01 10^3/uL (0.0-0.06); Absolute Basophil Count 0.02 10^3/uL (0.0-0.2); Absolute Eosinophil Count 0.17 10^3/uL (0.0-0.7); Absolute Lymphocyte Count 1.48 10^3/uL (1.2-3.4); Absolute Monocyte Count 0.36 10^3/uL (0.1-0.8); Absolute Neutrophil Count 2.82 10^3/uL (1.2-6.7); Basophils % 0.4; Eosinophils % 3.5; HCT 41.2 % (36.0-46.0); HGB 13.2 g/dL (11.2-15.7); Immature Grans % 0.2; Lymphocytes % 30.5; MCH 30.1 pg (27.0-33.0); MCV 94.1 fL (80-95); MPV 9.6 fL (8.0-11.0); Monocytes % 7.4; Nucleated RBC 0 %; Platelet Count 260 10^3/uL (130-400); RBC 4.38 10^6/uL (3.93-5.22); RDW 11.9 % (11.7-14.6); RDW-SD 41.4 fL; WBC 4.86 10^3/uL (4.4-10.8)
[2021-06-13 11:55] LABS: HIV-1/2 Ag & Ab Screen Negative (Negative)
[2021-06-13 12:06] LABS: Hep B Core Antibody Negative (Negative)
[2021-06-13 14:21] LABS: Syphilis Serology (RPR) Negative (Negative)
== END 2021-06-12 02:50 | disposition home or self-care (01) ==
PROVIDERS: Student in an Organized Health Care Education/Training Program; PCP Nurse Practitioner Adult Health; Visit Provider Obstetrics & Gynecology
DX: R53.83 Other fatigue (principal); N92.0 Excessive and frequent menstruation with regular cycle; Z11.3 Encounter for screening for infections with a predominantly sexual mode of transmission; Z11.4 Encounter for screening for human immunodeficiency virus [HIV]; Z11.59 Encounter for screening for other viral diseases
CPT/HCPCS: 36415; 86704; 87389; 85025; 86592

== ENCOUNTER 2021-06-25 16:37 | Outpatient (REF) | payer OTHER, SELFPAY | END 2021-06-25 16:38 | disposition home or self-care (01) | LOC: LBN 16:37 | PROVIDERS: PCP Nurse Practitioner Adult Health; Visit Provider Obstetrics & Gynecology | DX: L29.8 Other pruritus (principal) | CPT/HCPCS: 87480; 87510; 87660 ==

== ENCOUNTER 2021-07-14 12:25 | Outpatient (REF) | payer OTHER, SELFPAY ==
[2021-07-16 15:48] LABS: Chlamydia Result Negative (Negative); GC Result Negative (Negative)
== END 2021-07-14 12:26 | disposition home or self-care (01) ==
LOC: NCHCN 12:25
PROVIDERS: PCP Nurse Practitioner Adult Health; Visit Provider Physician Assistant Medical
DX: N89.8 Other specified noninflammatory disorders of vagina (principal); R10.9 Unspecified abdominal pain; Z11.3 Encounter for screening for infections with a predominantly sexual mode of transmission
CPT/HCPCS: 87491; 87591; 87480; 87510; 87660

== ENCOUNTER 2021-10-02 15:52 | Outpatient (REF) | payer OTHER, SELFPAY ==
[2021-10-04 14:37] LABS: COVID-19 RT-PCR UVMMC Result Negative (Negative)
== END 2021-10-02 15:53 | disposition home or self-care (01) ==
LOC: LBN 15:52
PROVIDERS: PCP Nurse Practitioner Adult Health; Visit Provider Nurse Practitioner
DX: Z20.822 Contact with and (suspected) exposure to COVID-19 (principal); J02.9 Acute pharyngitis, unspecified
CPT/HCPCS: U0003

== ENCOUNTER 2021-10-16 18:13 | Outpatient (REF) | payer OTHER, SELFPAY | END 2021-10-16 18:14 | disposition home or self-care (01) | LOC: LBN 18:13 | PROVIDERS: PCP Nurse Practitioner Adult Health; Visit Provider Obstetrics & Gynecology | DX: N89.8 Other specified noninflammatory disorders of vagina (principal) | CPT/HCPCS: 87480; 87510; 87660 ==

== ENCOUNTER 2021-11-18 10:55 | Emergency (ER) | payer OTHER, SELFPAY ==
[2021-11-18] VITALS (31 sets, daily range): BP systolic 103–119; BP diastolic 59–74; PULSE 69–112; RESP 12–32; TEMP 36.6–36.7; O2SAT 88–100
--- NOTE | 2021-11-18 10:45 | RT.EKG_ITS ---
APPROVED REPORT Exam: Resting ECG Reason for Exam: shortness of breath Patient Location: E HR:87 bpm ECG Measurements Heart Rate 87 AXIS HI 123 P 55 QRSd 82 QRS 78 QT 347 T 56 QTc 418 Conclusion Sinus rhythm...normal P axis, V-rate 60- 99. Sinus. Normal axis. No STEMI. I have reviewed and interpreted ECG and agree with software generated interpretation.
--- NOTE | 2021-11-18 11:15 | DI.RAD_ITS ---
Exam(s) XR CHEST 2V PA LATERAL EXAM: XR CHEST 2V PA LATERAL CLINICAL HISTORY: Palpitations/shortness of breath TECHNIQUE: 2D digital imaging was performed. COMPARISON: CR XR CHEST 2V PA LATERAL from 03/16/2019 FINDINGS: MEDIASTINUM: Normal. HEART: Normal. PULMONARY VASCULATURE: Normal. LUNGS: Clear. PLEURAL SPACE: No pleural effusion or pneumothorax. BONE:Unremarkable for age. IMPRESSION: No acute abnormality. DATA REPOSITORY: RADIATION DOSE DELIVERED:
[2021-11-18 11:30] LABS: Bilirubin Negative (Negative); Blood Negative (Negative); Clarity Clear (Clear); Glucose Negative (Negative); Ketones Negative (Negative); Leukocyte Esterase Negative (Negative); Nitrite Negative (Negative); Specific Gravity 1.015 (1.005-1.025); Urobilinogen 0.2 EU/dL (Up TO 0.2)
[2021-11-18 11:38] LABS: Abs Immature Grans 0.02 10^3/uL (0.0-0.06); Absolute Basophil Count 0.03 10^3/uL (0.0-0.2); Absolute Eosinophil Count 0.15 10^3/uL (0.0-0.7); Absolute Lymphocyte Count 1.85 10^3/uL (1.2-3.4); Absolute Monocyte Count 0.79 10^3/uL (0.1-0.8); Basophils % 0.4; Eosinophils % 1.8; HCT 43.3 % (36.0-46.0); HGB 14.2 g/dL (11.2-15.7); Immature Grans % 0.2; Lymphocytes % 22.2; MCH 29.6 pg (27.0-33.0); MCHC 32.8 % (32.0-36.0); MCV 90.4 fL (80-95); MPV 9.5 fL (8.0-11.0); Monocytes % 9.5; Neutrophils % 65.9; Nucleated RBC 0 %; Platelet Count 312 10^3/uL (130-400); RBC 4.79 10^6/uL (3.93-5.22); RDW 11.9 % (11.7-14.6); RDW-SD 39.8 fL; WBC 8.34 10^3/uL (4.4-10.8)
[2021-11-18 12:02] LABS: ALT 21 U/L (14-59); AST 13 U/L (15-37); Albumin 4.2 g/dL (3.4-5.0); Alkaline Phosphatase 70 U/L (46-116); Anion Gap 9.3 mmol/L (3-11); BUN 17 mg/dL (7-18); Bilirubin, Total 0.5 mg/dL (0.2-1.0); CO2 26.7 mmol/L (21.0-32.0); CREATININE 0.7 mg/dL (0.55-1.02); Chloride 106 mmol/L (98-107); Glucose 76 mg/dL (74-106); Potassium 3.7 mmol/L (3.5-5.1); Sodium 142 mmol/L (136-145); Total Protein 7.9 g/dL (6.4-8.2); Troponin I < 50 ng/L (<or=60)
[2021-11-18 12:11] LABS: D-Dimer 230 ng/mlFEU (<500)
--- NOTE | 2021-11-18 12:15 | DI.VRAD_ITS ---
PROCEDURE INFORMATION: Exam: XR Chest Exam date and time: 11/18/2021 11:49 AM Age: 31 years old Clinical indication: Other: Palpitations, SOB TECHNIQUE: Imaging protocol: XR of the chest. Views: 2 views. COMPARISON: CR XR CHEST 2V PA LATERAL 03/16/2019 11:23 AM FINDINGS: Lungs: Unremarkable. No consolidation. Pleural spaces: Unremarkable. No pleural effusion. No detectable pneumothorax. Heart/Mediastinum: Unremarkable. No cardiomegaly. Bones/joints: Unremarkable. IMPRESSION: 1. No acute findings. 2. No detectable pneumothorax. Given history of pneumothorax, consider expiratory chest x-ray which is more sensitive for detection of pneumothorax. Dictated and Authenticated by: Stephania Jeffries MD. Ordering:MADISON Field MD
[2021-11-18] MEDS: Normal Saline 1,000 ML 1000 ML IV (13:44)
--- NOTE | 2021-11-18 14:15 | RT.EKG_ITS ---
APPROVED REPORT Exam: Resting ECG Reason for Exam: palpations Patient Location: E HR:79 bpm ECG Measurements Heart Rate 79 AXIS WA 130 P 38 QRSd 88 QRS 81 QT 379 T 55 QTc 436 Conclusion Sinus rhythm...normal P axis, V-rate 60- 99. Sinus. Normal axis. No STEMI. I have reviewed and interpreted ECG and agree with software generated interpretation.
--- NOTE | 2021-11-18 14:47 | ED.GENADUL_ITS ---
Discharge Plan Disposition Patient Disposition: HOME Condition: Stable Discharge Details Clinical Impression: Frequent PVCs, Anxiety about health Primary Care Provider: Shae Love ED Provider: Emir Starr Home Meds and New Rx's Prescriptions: Continued psyllium husk [Metamucil] 0.4 gram capsule 0.4 g PO DAILY 0RF nystatin-triamcinolone 100,000-0.1 unit/gram-% ointment 1 applic topical BID Qty: 60 1RF magnesium chloride 64 mg magnesium tablet PO 0RF Rx Instructions: Slo-Mag - Per Neuro cholecalciferol (vitamin D3) 50 mcg (2,000 unit) tablet 50 mcg PO DAILY 0RF Rx Instructions: Per Neuro - 10/27/20 EO Kyleena 17.5 mcg/24 hrs (5 yrs) 19.5 mg intrauterine device 1 device intrauterine ONCE Qty: 1 0RF Rx Instructions: as a single dose cranberry 500 mg capsule 500 mg PO DAILY PRN0RF Rx Instructions: administer with meals fluconazole 150 mg tablet 150 mg PO ONCE Qty: 30 0RF Rx Instructions: Take 1 tab po q72hrs x3 doses. Then take weekly. sertraline 50 mg tablet 100 mg PO DAILY 0RF Rx Instructions: TAKE 2 TABLETS BY MOUTH DAILY OR DIRECTED Discharge Instructions Instructions: Premature Ventricular Contractions (ED), Anxiety (ED) Additional Instructions: Continue to monitor your symptoms and feel free to return for any new or significant worsening of your symptoms. Follow-up with your primary care provider for further testing and reassessment as needed. Referrals: Shae Love, REVENUE AGENT [Primary Care Provider] - 1 week Discharge Data Discharge Date/Time-TO BE ENTERED AT DEPARTURE: 11/18/21 15:26 Medical Decision Making Patient presenting to the emergency department chief complaint of palpitations and PVCs. Patient states ongoing history of anxiety and palpitations. She has been evaluated multiple times for this but since having her menstrual period 1 week ago has noticed increase in PVC sensation. She does have a phone sasha that has been noting PVCs. Patient denies any syncope, fainting, dizziness with standing, persistent chest pain. Does state some shortness of breath that occurs with this but difficult to determine if that is her anxiety versus respiratory symptoms. Physical exam is completely unremarkable for any acute findings. EKG performed and shows normal sinus rhythm. Please see attending physician's full interpretation of EKG. We will plan on performing screening cardiac labs including D-dimer and chest x-ray. Patient does report some mild to moderate alcohol intake yesterday evening so we will give IV fluids pending results. Reviewed labs which are completely unremarkable and show negative troponin and negative D-dimer. Radiological imaging shows no worrisome acute findings and no acute cardiopulmonary abnormality. Patient reassessed and continues to state sensation of PVCs. Was able to observe these on the cafeteria monitor while patient was in the emergency department. While they were unable to be captured on EKG they do appear somewhat similar in morphology. We will plan on doing delta troponin. Second troponin was negative and patient reassessed. Patient denies any significant change in symptoms. Thoroughly discussed with patient diagnosis of PVCs and things to watch out for. Will place patient on follow-up with primary care for further assessment and consideration of either longer Holter monitor or specialty referral either to cardiology or electrophysiology. After discussion of diagnosis and plan of care patient has no further needs, questions, or concerns and states clear understanding to return to the emergency department for any worsening symptoms. Imaging Data Radiologic Study: Imaging: X-Ray Radiologist's impression: IMPRESSION: 1. No acute findings. 2. No detectable pneumothorax. Given history of pneumothorax, consider expiratory chest x-ray which is more sensitive for detection of pneumothorax. HPI General Mode of arrival: ambulatory . Date/Time Provider Initiated Documentation: 11/18/21 10:56 . Limitations to Documentation: no limitations . Information obtained by: patient, RN notes reviewed and old records reviewed . History of Present Illness 31 year old F presents to the emergency department with the chief complaint of Palpitations, Quality is described as other (Denies chest pain), Patient started experiencing this week(s) (2) and it has been constant and intermittent. improves with No relieving factors improve symptom(s), Other factors that worsen symptoms (Menstrual cycle) . Related Data Home Medications Medication Instructions Recorded Confirmed cholecalciferol (vitamin D3) 50 50 mcg PO DAILY 10/27/20 11/18/21 mcg (2,000 unit) tablet magnesium chloride mg PO 10/27/20 10/31/21 levonorgestrel (Kyleena) 1 device INTRAUTERINE ONCE #1 ea 01/29/21 11/18/21 cranberry 500 mg capsule 500 mg PO DAILY PRN cap 05/01/21 11/18/21 psyllium husk 0.4 gram capsule 0.4 g PO DAILY 05/11/21 11/18/21 (Metamucil) nystatin-triamcinolone 100,000 1 applic TOPICAL BID #60 g 06/25/21 11/18/21 unit/gram-0.1 % topical ointment fluconazole 150 mg tablet 150 mg PO ONCE #30 tab 10/17/21 11/18/21 sertraline 50 mg tablet 100 mg PO DAILY 11/18/21 11/18/21 Previous Rx's Medication Instructions Recorded levonorgestrel (Kyleena) 1 device INTRAUTERINE ONCE #1 ea 01/29/21 nystatin-triamcinolone 100,000 1 applic TOPICAL BID #60 g 06/25/21 unit/gram-0.1 % topical ointment fluconazole 150 mg tablet 150 mg PO ONCE #30 tab 10/17/21 Allergies Allergy/AdvReac Type Severity Reaction Status Date / Time Bee Sting Allergy Unknown Uncoded 11/18/21 11:09 General Stated Complaint: Palpitatns ROCHELLE: 3 Review of Systems Constitutional Constitutional: Denies chills, Denies fever(s) and Denies malaise Cardiovascular Cardiovascular: Reports as per HPI, Denies chest pain, Denies chest pain with activity, Denies syncope, Denies pedal edema, Denies irregular heart rhythm, Denies leg edema, Denies lightheadedness, Reports palpitations and Denies dyspnea Respiratory Respiratory: Denies cough, Denies hemoptysis and Denies dyspnea Gastrointestinal Gastrointestinal: Denies abdominal pain, Denies nausea and Denies vomiting Neurologic Neurologic: Denies syncope Psychiatric Psychiatric: Reports anxiety Endocrine Endocrine: Denies cold intolerance, Denies heat intolerance and Reports palpitations PFSH All Active Problems (Updated 11/20/21 @ 12:25 by Shae Love NP) Frequent PVCs (Acute) Anxiety about health (Acute) Anxiety and depression (Chronic 12/19/17) RX Sertraline Medical History (Updated 11/20/21 @ 12:25 by Shae Love NP) Abnormal auditory perception (~01/15/21) Abnormal Pap smear of cervix Chronic tonsillitis Collapsed lung Dyspareunia longstanding. 05/2021. Referral for eval for pelvic floor PT. Enlarged thyroid On PE only; consider F/U U/S 1 year in 2020; 2019 U/S essentially normal with normal size; normal TSH Facial trauma kicked by a horse, consult with [facility] [facility] Dr. Muller 02/09/19=closed subondular fx L side of mandible RH Fracture of transverse process of thoracic vertebra Halitosis (~01/15/21) Internal nasal lesion Left nare, papule per Hx ... but recently pulled off. [ ] sample [ ] ENT eval IUD (intrauterine device) in place 01/2021. Kyleena Left rib fracture Migraine headache without aura Numerous skin moles Abd mole/skin tag; Rt arm mole/ingrown hair(?); Left knee excoriated mole (possible punch Bx for removal and Dx?) Palpitations 2019: normal TSH & normal 14-day cafeteria monitor; anxiety likely etiology Paresthesia 2020 normal brain MRI Pneumothorax, left Pruritus, genital Recurrent canker sores Tinnitus (~01/15/21) 12/2020 No CATS diet ENT Tonsil stone (~01/15/21) Vaginitis Surgical History EGD - MAC (10/10/17) History of excision of lesion 3 moles removed in office Martin teeth extraction Family History Maternal Grandfather Cardiovascular disease Maternal Grandmother Alzheimer's disease Migraine Anxiety Mother Migraine Anxiety Ulcerative colitis Hypertension Father Hypertension Other Heart disease Social History Smoking/Tobacco Use Status: Never Second Hand Exposure: Yes Smoking risk assessment performed?: Yes Alcohol Intake: current Alcohol Intake frequency: a few times a week Alcohol type: wine Drug use: Never Substance use type: does not use Adopted: No Caregiver/Support person: No Foster care: No Household members: none Housing: apartment Number of Children: 0 number of grandchildren: 0 Communication Needs: None Education Level: college Do you need help understanding health information?: Never 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 Health and rehab [employer] Pets and animals: Yes (2) Pets and animals: dog(s) Sexually active: Yes Do you think of yourself as: straight/heterosexual Current gender identity: female What is your relationship status?: never How often do you talk on the phone with friends or family?: three or more times per week How often do you get together with friends or relatives?: three or more times per week Do you belong to any clubs or organized social groups?: no Panel score (0-1 are the most socially isolated patients): 1 What type of physical activity do you participate in: walking, bicycling and regular exercise Duration: 30-45 minutes/day Frequency: 5-6 times per week Maria Eugenia/Adventist: None Special maria eugenia needs: No Seatbelt use: always Helmet use: Yes Drive intox or ride w/intox national dedicated truck driver: No Working smoke detector in home: Yes Fire extinguisher in home: Yes Carbon monox detector in home: Yes Firearms in home: Yes Firearms unloaded and locked: No Do you feel safe at home: Yes Do you feel safe in your relationship?: Yes Female Reproductive History Menstrual control method: progestin IUCD History History 0 Para Hx # Term Pregnancies Multiple births Hx # Pregnancies Ectopic pregnancies AB induced Hx Number of Living Children AB spontaneous Exam Const General: cooperative, healthy appearing, comfortable, no acute distress, not diaphoretic and not ill appearing Nutritional Appearance: average body habitus Orientation: alert, awake and oriented x3 Limitations: mental status not altered Neck Neck: normal visual inspection, full ROM, trachea midline, supple and no anterior neck swelling Thyroid: thyroid normal Carotids: normal carotid upstroke and no bruits Resp Effort & Inspection: normal respiratory effort and able to speak in complete sentences Auscultation: clear to auscultation bilaterally Cardio Jugular venous pressure: no JVD Palpation: normal PMI Rate: regular rate Rhythm: regular rhythm Heart Sounds: S1 normal, S2 normal, no click, no gallops, no murmurs and no rubs Bruits: no abdominal aortic bruits and no carotid bruits Pulses: radial pulses present bilaterally 2+ GI Inspection: normal to inspection Palpation: soft, no aortic enlargement, no pulsatile masses and nontender Auscultation: normal bowel sounds Skin General skin exam: no rashes or lesions noted Neuro General: patient alert, patient awake, patient oriented x3, tone normal and moves all extremities Course Vital Signs Vital signs: Vital Signs Temperature 36.6 C 11/18/21 11:05 Pulse 99 H 11/18/21 11:05 Respiratory Rate 18 03/27/22 11:05 Blood Pressure 119/74 11/18/21 11:05 Pulse Oximetry 100 11/18/21 11:05 Temperature 36.6 C 11/18/21 11:05 Temperature Source Temporal Artery Scan 11/18/21 11:05 Pulse 80 11/18/21 14:30 Pulse 85 11/18/21 14:31 Respiratory Rate 13 11/18/21 14:31 Respiratory Effort Non-Labored 11/18/21 11:12 Blood Pressure 114/59 L 11/18/21 14:30 Blood Pressure Mean 71 11/18/21 14:30 Blood Pressure Position Supine 11/18/21 11:05 Pulse Oximetry 88 L 11/18/21 14:31 Oxygen Delivery Method Room Air 11/18/21 11:05 Oxygen Flow Rate 0 11/18/21 11:05 Lab/Test Results Lab/Test Results: Laboratory Tests Range/Units 11/18/21 11/18/21 11/18/21 11:20 11:25 11:25 WBC (4.4-10.8) 10^3/uL 8.34 RBC (3.93-5.22) 10^6/uL 4.79 Hgb (11.2-15.7) g/dL 14.2 Hct (36.0-46.0) % 43.3 MCV (80-95) fL 90.4 MCH (27.0-33.0) pg 29.6 MCHC (32.0-36.0) % 32.8 RDW (11.7-14.6) % 11.9 Plt Count (130-400) 10^3/uL 312 MPV (8.0-11.0) fL 9.5 Immature Gran % 0.2 Neutrophils % 65.9 Lymphocytes % 22.2 Monocytes % 9.5 Eosinophils % 1.8 Basophils % 0.4 Nucleated RBC % % 0 Absolute Neutrophils (1.2-6.7) 10^3/uL 5.50 Absolute Lymphocytes (1.2-3.4) 10^3/uL 1.85 Absolute Monocytes (0.1-0.8) 10^3/uL 0.79 Absolute Eosinophils (0.0-0.7) 10^3/uL 0.15 Absolute Basophils (0.0-0.2) 10^3/uL 0.03 D-Dimer (<500) ng/mlFEU Sodium (136-145) mmol/L 142 Potassium (3.5-5.1) mmol/L 3.7 Chloride (98-107) mmol/L 106 Carbon Dioxide (21.0-32.0) mmol/L 26.7 Anion Gap (3-11) mmol/L 9.3 BUN (7-18) mg/dL 17 Creatinine (0.55-1.02) mg/dL 0.7 Estimated GFR/1.73 m2 (mL/min/1.73m2) >= 60.00 Glucose (74-106) mg/dL 76 Calcium (8.5-10.1) mg/dL 9.0 Magnesium (1.8-2.4) mg/dL 2.0 Total Bilirubin (0.2-1.0) mg/dL 0.5 AST (15-37) U/L 13 L ALT (14-59) U/L 21 Alkaline Phosphatase (46-116) U/L 70 Troponin I (<or=60) ng/L < 50 Total Protein (6.4-8.2) g/dL 7.9 Albumin (3.4-5.0) g/dL 4.2 TSH (0.36-3.74) uIU/mL 2.10 Urine Color (Yellow) Yellow Urine Clarity (Clear) Clear Urine pH (5-8) 6.0 Ur Specific [place] (1.005-1.025) 1.015 Urine Protein (Negative) mg/dL Negative Urine Ketones (Negative) mg/dL Negative Urine Blood (Negative) Negative Urine Nitrite (Negative) Negative Urine Bilirubin (Negative) Negative Urine Urobilinogen (Up TO 0.2) EU/dL 0.2 Ur Leukocyte Esterase (Negative) Negative Urine Glucose (Negative) mg/dL Negative Range/Units 11/18/21 11:25 WBC (4.4-10.8) 10^3/uL RBC (3.93-5.22) 10^6/uL Hgb (11.2-15.7) g/dL Hct (36.0-46.0) % MCV (80-95) fL MCH (27.0-33.0) pg MCHC (32.0-36.0) % RDW (11.7-14.6) % Plt Count (130-400) 10^3/uL MPV (8.0-11.0) fL Immature Gran % Neutrophils % Lymphocytes % Monocytes % Eosinophils % Basophils % Nucleated RBC % % Absolute Neutrophils (1.2-6.7) 10^3/uL Absolute Lymphocytes (1.2-3.4) 10^3/uL Absolute Monocytes (0.1-0.8) 10^3/uL Absolute Eosinophils (0.0-0.7) 10^3/uL Absolute Basophils (0.0-0.2) 10^3/uL D-Dimer (<500) ng/mlFEU 230 Sodium (136-145) mmol/L Potassium (3.5-5.1) mmol/L Chloride (98-107) mmol/L Carbon Dioxide (21.0-32.0) mmol/L Anion Gap (3-11) mmol/L BUN (7-18) mg/dL Creatinine (0.55-1.02) mg/dL Estimated GFR/1.73 m2 (mL/min/1.73m2) Glucose (74-106) mg/dL Calcium (8.5-10.1) mg/dL Magnesium (1.8-2.4) mg/dL Total Bilirubin (0.2-1.0) mg/dL AST (15-37) U/L ALT (14-59) U/L Alkaline Phosphatase (46-116) U/L Troponin I (<or=60) ng/L Total Protein (6.4-8.2) g/dL Albumin (3.4-5.0) g/dL TSH (0.36-3.74) uIU/mL Urine Color (Yellow) Urine Clarity (Clear) Urine pH (5-8) Ur Specific [place] (1.005-1.025) Urine Protein (Negative) mg/dL Urine Ketones (Negative) mg/dL Urine Blood (Negative) Urine Nitrite (Negative) Urine Bilirubin (Negative) Urine Urobilinogen (Up TO 0.2) EU/dL Ur Leukocyte Esterase (Negative) Urine Glucose (Negative) mg/dL POC- Test(urine) Negative
[2021-11-18 14:51] LABS: Troponin I < 50 ng/L (<or=60)
--- NOTE | 2021-11-18 15:14 | NUR.NOTE ---
Ned has requested that the patient follow up with her PCP regarding PVC's within the next week or two. I have faxed a request to her PCP. SHWETHA
== END 2021-11-18 15:26 | disposition home or self-care (01) ==
PROVIDERS: Emergency Provider Nurse Practitioner Family; PCP Nurse Practitioner Adult Health
DX: I49.3 Ventricular premature depolarization (principal); F41.9 Anxiety disorder, unspecified; R00.2 Palpitations; R06.02 Shortness of breath
CPT/HCPCS: 36415; 80053; 81025; 93005; 96360; 99284; 71046; 81003; 83735; 84443; 84484; 85025; 85379; 93010

== ENCOUNTER 2022-07-23 16:48 | Outpatient (REF) | payer OTHER, SELFPAY ==
[2022-07-23 18:09] LABS: HCT 40.2 % (36.0-46.0); HGB 13.1 g/dL (11.2-15.7); MCH 29.8 pg (27.0-33.0); MCHC 32.6 % (32.0-36.0); MCV 91 fL (80-95); MPV 10.5 fL (8.0-11.0); Platelet Count 323 10^3/uL (130-400); RDW 11.6 % (11.7-14.6); RDW-SD 39.5 fL; WBC 8.79 10^3/uL (4.4-10.8)
[2022-07-23 18:43] LABS: ALT 22 U/L (14-59); AST 13 U/L (15-37); Albumin 4.5 g/dL (3.4-5.0); Alkaline Phosphatase 73 U/L (46-116); Anion Gap 7.8 mmol/L (3-11); BUN 17 mg/dL (7-18); Bilirubin, Total 0.2 mg/dL (0.2-1.0); CO2 28.2 mmol/L (21.0-32.0); CREATININE 0.7 mg/dL (0.55-1.02); Calcium 9.9 mg/dL (8.5-10.1); Chloride 101 mmol/L (98-107); Estimated GFR 119.24 (mL/min/1.73m2); Glucose 77 mg/dL (74-106); Magnesium 1.9 mg/dL (1.8-2.4); Sodium 137 mmol/L (136-145); TSH (W/Ref FT4) 1.49 uIU/mL (0.36-3.74); Total Protein 7.9 g/dL (6.4-8.2); Vitamin B12 515 pg/mL (193-986)
[2022-07-24 17:59] LABS: T3,Free 3.8 pg/mL (2.8-5.3)
[2022-07-25 10:31] LABS: Lyme Ab w Rflx to Lyme Confirm Negative (Negative)
[2022-07-26 22:36] LABS: Anaplasma phagocytophilum Negative (Negative); B. miyamotoi PCR Negative (Negative); Babesia divergens/MO-1 Negative (Negative); Babesia duncani Negative (Negative); Babesia microti Negative (Negative); Ehrlichia chaffeensis Negative (Negative); Ehrlichia ewingii/canis Negative (Negative); Ehrlichia muris eauclairensis Negative (Negative)
== END 2022-07-23 16:49 | disposition home or self-care (01) ==
LOC: LBN 16:48
PROVIDERS: PCP Nurse Practitioner Adult Health; Visit Provider Nurse Practitioner
DX: I10 Essential (primary) hypertension (principal); I49.3 Ventricular premature depolarization; R20.2 Paresthesia of skin; R42 Dizziness and giddiness; F41.8 Other specified anxiety disorders
CPT/HCPCS: 80053; 85027; 87798; 82607; 83735; 84443; 84481; 86618

== ENCOUNTER 2022-07-24 08:39 | Outpatient (CLI) | payer OTHER, SELFPAY ==
[2022-07-26 09:06] LABS: Thiamine (Vitamin B1), WB 107 nmol/L (70-180)
== END 2022-07-24 08:40 | disposition home or self-care (01) ==
LOC: LBO 08:40
PROVIDERS: PCP Nurse Practitioner Adult Health; Visit Provider Nurse Practitioner
DX: R20.2 Paresthesia of skin (principal); R42 Dizziness and giddiness; I49.3 Ventricular premature depolarization
CPT/HCPCS: 36415; 84591; 84425

== ENCOUNTER 2022-08-05 14:09 | Outpatient (REF) | payer OTHER, SELFPAY | END 2022-08-05 14:10 | disposition home or self-care (01) | LOC: LBN 14:09 | PROVIDERS: PCP Nurse Practitioner Adult Health; Visit Provider Nurse Practitioner Family | DX: J02.9 Acute pharyngitis, unspecified (principal) | CPT/HCPCS: 87070 ==

== ENCOUNTER 2022-08-15 13:57 | Outpatient (REF) | payer OTHER, SELFPAY ==
[2022-08-15 15:09] LABS: Ferritin 77 ng/mL (8-252)
== END 2022-08-15 13:58 | disposition home or self-care (01) ==
LOC: LBN 13:57
PROVIDERS: PCP Nurse Practitioner Adult Health; Visit Provider Psychiatry & Neurology Neurology
DX: G25.81 Restless legs syndrome (principal)
CPT/HCPCS: 82728

== ENCOUNTER 2022-08-28 08:29 | Outpatient (CLI) | payer OTHER, SELFPAY ==
--- NOTE | 2022-08-28 08:15 | RT.EKG_ITS ---
APPROVED REPORT Exam: Resting ECG Reason for Exam: EP EVALUATION Patient Location: O HR:85 bpm ECG Measurements Heart Rate 85 AXIS OK 124 P 57 QRSd 92 QRS 71 QT 352 T 47 QTc 419 Conclusion Sinus rhythm...normal P axis, V-rate 50- 99 Ventricular premature complex...V complex w/ short R-R interval
== END 2022-08-28 08:30 | disposition home or self-care (01) ==
LOC: DI.CARD 08:31
PROVIDERS: PCP Nurse Practitioner Adult Health; Visit Provider Internal Medicine Cardiovascular Disease
DX: R00.2 Palpitations (principal); I49.3 Ventricular premature depolarization
CPT/HCPCS: 93010

== ENCOUNTER 2022-08-28 14:51 | Outpatient (REF) | payer OTHER, SELFPAY ==
[2022-08-28 13:58] LABS: Abs Immature Grans 0.02 10^3/uL (0.0-0.06); Absolute Basophil Count 0.05 10^3/uL (0.0-0.2); Absolute Eosinophil Count 0.15 10^3/uL (0.0-0.7); Absolute Lymphocyte Count 2.03 10^3/uL (1.2-3.4); Absolute Monocyte Count 0.74 10^3/uL (0.1-0.8); Absolute Neutrophil Count 5.73 10^3/uL (1.2-6.7); Basophils % 0.6; Eosinophils % 1.7; HCT 44.4 % (36.0-46.0); HGB 14.9 g/dL (11.2-15.7); Immature Grans % 0.2; Lymphocytes % 23.3; MCH 30.4 pg (27.0-33.0); MCHC 33.6 % (32.0-36.0); MCV 91 fL (80-95); Monocytes % 8.5; Neutrophils % 65.7; Platelet Count 308 10^3/uL (130-400); WBC 8.72 10^3/uL (4.4-10.8)
[2022-08-28 14:21] LABS: BUN 15 mg/dL (7-18); CREATININE 0.6 mg/dL (0.55-1.02); Chloride 101 mmol/L (98-107); Estimated GFR 123.76 (mL/min/1.73m2); Glucose 75 mg/dL (74-106); Magnesium 2.2 mg/dL (1.8-2.4); Potassium 4.3 mmol/L (3.5-5.1); Sodium 137 mmol/L (136-145); TSH 2.16 uIU/mL (0.36-3.74)
[2022-08-28 14:33] LABS: D-Dimer 270 ng/mlFEU (<500)
== END 2022-08-28 14:52 | disposition home or self-care (01) ==
LOC: LBN 14:51
PROVIDERS: PCP Nurse Practitioner Adult Health; Visit Provider Physician Assistant Medical
DX: R53.1 Weakness (principal); M79.661 Pain in right lower leg; M79.662 Pain in left lower leg
CPT/HCPCS: 80048; 83735; 84443; 85025; 85379

== ENCOUNTER 2022-09-13 09:54 | Outpatient (RCR) | payer OTHER, SELFPAY ==
--- NOTE | 2022-09-17 10:45 | HOLTER_ITS ---
APPROVED REPORT Conclusion This is a 48-hour Holter monitor ordered for palpitations Rhythm throughout was sinus with an average heart rate of 83. Minimum was 58, maximum 178 There were rare atrial premature beats. There was no atrial fibrillation or supraventricular tachyca rdia There were occasional ventricular ectopic beats. These comprised 0.4% of total beats Patient symptoms of palpitations appeared to correlate with PVCs
== END 2022-09-24 23:59 | disposition home or self-care (01) ==
LOC: CARDOPNVT 09:54
PROVIDERS: PCP Nurse Practitioner Adult Health; Visit Provider Internal Medicine Cardiovascular Disease
DX: I49.3 Ventricular premature depolarization (principal)
CPT/HCPCS: 93225; 93226

== ENCOUNTER 2022-10-15 12:01 | Outpatient (REF) | payer OTHER, SELFPAY ==
--- NOTE | 2022-10-15 10:25 | PAPFT_PTH ---
PATIENT: Pili Kasper LOC: [facility] U#:[id number] AGE/SX: 32/F ROOM: RE10/15/[address]: Nancy Singh NP : 1990 BED: DIS: 10/15/2022 SPEC #: [id number] RECD: 10/15/22 12:56 STATUS: JENI REMatt #: [id number] ALEXANDRA: 10/15/22 10:[address]: Nancy Singh NP DEPT: [facility] Cytology RECD BY: Annette Moody ENTERED: 10/15/22 12:56 SP TYPE: PAPFT OTHR DR: Shae Love APRN Tissues: 1 - CX/ENDOCX FOR PAP SMEARS Procedures: PAP THIN PREP/UVM Screening HPV DNA PROBE Comments: [id number] (CHLAMYDIA/GC)
[2022-10-16 14:44] LABS: Chlamydia Result Negative (Negative); GC Result Negative (Negative)
== END 2022-10-15 12:02 | disposition home or self-care (01) ==
LOC: LBN 12:01
PROVIDERS: PCP Nurse Practitioner Adult Health; Visit Provider Nurse Practitioner Women's Health
DX: Z12.4 Encounter for screening for malignant neoplasm of cervix (principal); Z11.3 Encounter for screening for infections with a predominantly sexual mode of transmission
CPT/HCPCS: 87491; 87591; 88142; 87624

== ENCOUNTER 2022-10-23 16:11 | Outpatient (REF) | payer OTHER, SELFPAY ==
[2022-10-24 10:16] LABS: HIV-1/2 Ag & Ab Screen Negative (Negative)
[2022-10-24 10:29] LABS: Hepatitis C Ab w Rflx HCV PCR Negative (Negative)
[2022-10-24 21:58] LABS: Syphilis IgG w/Reflex Nonreactive (Nonreactive)
== END 2022-10-23 16:12 | disposition home or self-care (01) ==
LOC: LBN 16:11
PROVIDERS: PCP Nurse Practitioner Adult Health; Visit Provider Nurse Practitioner Women's Health
DX: Z11.3 Encounter for screening for infections with a predominantly sexual mode of transmission (principal); Z11.4 Encounter for screening for human immunodeficiency virus [HIV]; Z11.59 Encounter for screening for other viral diseases
CPT/HCPCS: 86803; 87389; 86780

== ENCOUNTER 2022-12-13 09:27 | Emergency (ER) | payer OTHER, SELFPAY ==
--- NOTE | 2022-12-13 09:30 | RT.EKG_ITS ---
APPROVED REPORT Exam: Resting ECG Reason for Exam: weakness Patient Location: E HR:83 bpm ECG Measurements Heart Rate 83 AXIS TN 134 P 113 QRSd 84 QRS 101 QT 372 T 125 QTc 437 Conclusion Right and left arm electrode reversal, interpretation assumes no reversal Sinus rhythm...normal P axis, V-rate 60- 99 Abnormal T, consider ischemia, lateral leads...T <-0.20mV, I aVL V5 V6 LEAD REVERSAL - WILL REPEAT
[2022-12-13] MEDS: Lactated Ringers 1,000 ML 1000 ML IV (09:57)
[2022-12-13 09:58] LABS: Abs Immature Grans 0.01 10^3/uL (0.0-0.06); Absolute Basophil Count 0.04 10^3/uL (0.0-0.2); Absolute Eosinophil Count 0.11 10^3/uL (0.0-0.7); Absolute Lymphocyte Count 1.79 10^3/uL (1.2-3.4); Absolute Monocyte Count 0.64 10^3/uL (0.1-0.8); Absolute Neutrophil Count 5.38 10^3/uL (1.2-6.7); Basophils % 0.5; Eosinophils % 1.4; HGB 14.2 g/dL (11.2-15.7); Immature Grans % 0.1; Lymphocytes % 22.5; MCH 30.4 pg (27.0-33.0); MCHC 33.8 % (32.0-36.0); MCV 90 fL (80-95); MPV 9.6 fL (8.0-11.0); Neutrophils % 67.5; Platelet Count 291 10^3/uL (130-400); RBC 4.67 10^6/uL (3.93-5.22); RDW 11.9 % (11.7-14.6); WBC 7.97 10^3/uL (4.4-10.8)
[2022-12-13 10:00] VITALS: BP 106/67; PULSE 89; RESP 16; O2SAT 99
[2022-12-13] MEDS: Meclizine 25 MG TAB PO (10:08)
[2022-12-13 10:09] VITALS: RESP 18
--- NOTE | 2022-12-13 10:15 | RT.EKG_ITS ---
APPROVED REPORT Exam: Resting ECG Reason for Exam: dizziness Patient Location: E HR:81 bpm ECG Measurements Heart Rate 81 AXIS FL 124 P 35 QRSd 94 QRS 79 QT 394 T 53 QTc 457 Conclusion Sinus rhythm...normal P axis, V-rate 60- 99
[2022-12-13 10:21] LABS: ALT 23 U/L (14-59); AST 13 U/L (15-37); Alkaline Phosphatase 66 U/L (46-116); Anion Gap 6.7 mmol/L (3-11); BUN 18 mg/dL (7-18); Bilirubin, Total 0.4 mg/dL (0.2-1.0); CO2 29.3 mmol/L (21.0-32.0); CREATININE 0.7 mg/dL (0.55-1.02); Chloride 103 mmol/L (98-107); Estimated GFR 119.24 (mL/min/1.73m2); Glucose 82 mg/dL (74-106); Potassium 3.3 mmol/L (3.5-5.1); Sodium 139 mmol/L (136-145); TSH (W/Ref FT4) 2.13 uIU/mL (0.36-3.74); Total Protein 7.4 g/dL (6.4-8.2)
[2022-12-13 10:27] LABS: Bilirubin Negative (Negative); Blood Negative (Negative); Clarity Clear (Clear); Glucose Negative (Negative); Ketones Negative (Negative); Leukocyte Esterase Negative (Negative); Nitrite Negative (Negative); Urobilinogen 0.2 mg/dL (Up to 0.2)
[2022-12-13] MEDS: diazePAM 5 MG TAB PO (11:08)
--- NOTE | 2022-12-13 11:16 | W.ED.GENAD ---
Discharge Plan Disposition Patient Disposition: Home Discharge Details Clinical Impression: Dizziness, Vertigo Primary Care Provider: Shae Love ED Provider: Annette Gautam Home Meds and New Rx's Prescriptions: New diazepam [Valium] 5 mg tablet 5 mg PO BID PRNQty: 4 0RF meclizine 25 mg tablet 25 mg PO BID PRNQty: 10 0RF Continued mupirocin 2 % ointment 1 applic topical TID Qty: 15 0RF Rx Instructions: apply to inside of nose with fingertip Saccharomyces boulardii [Daily Probiotic (S. boulardii)] 250 mg capsule 5,000 mmu cells PO DAILY magnesium chloride 64 mg magnesium tablet PO Rx Instructions: Slo-Mag - Per Neuro cholecalciferol (vitamin D3) 50 mcg (2,000 unit) tablet 50 mcg PO DAILY Rx Instructions: Per Neuro - 10/27/20 EO Kyleena 17.5 mcg/24 hrs (5 yrs) 19.5 mg intrauterine device 1 device intrauterine ONCE Qty: 1 0RF Rx Instructions: as a single dose cranberry 500 mg capsule 500 mg PO DAILY PRN Rx Instructions: administer with meals clindamycin phosphate 1 % lotion 1 applic topical BID PRN (Reason: acne) Qty: 60 0RF Rx Instructions: apply up to twice per day PRN facial acne propranolol 10 mg tablet 5 - 10 mg PO TID PRN (Reason: PVCs &/or anxiety) Qty: 30 0RF pantoprazole 40 mg tablet,delayed release (DR/EC) 40 mg PO DAILY Qty: 30 1RF Hold Instructions: Changed by Provider omeprazole 20 mg capsule,delayed release(DR/EC) 20 mg PO BID Qty: 60 1RF Rx Instructions: Change in PPI 11/25/2022 (due to breakthrough symptoms) sertraline 50 mg tablet 100 mg PO DAILY Qty: 180 3RF Rx Instructions: TAKE 2 TABLETS BY MOUTH DAILY OR DIRECTED Discharge Instructions Instructions: Vertigo (ED) Additional Instructions: I am giving you a referral for physical therapy, should your symptoms persist I have extremely low suspicion that this is tumor in your brain You have a prescription for meclizine and Valium, you may choose to use whichever medication works best Stand Alone Forms: Physical Therapy Referral Referrals: Shae Love, CLIENT REPORTING ASSOCIATE [Primary Care Provider] - 1 day Discharge Data Discharge Date/Time-TO BE ENTERED AT DEPARTURE: 12/13/22 12:11 Medical Decision Making this 32 yo female presents with dizziness which started just vessel captain non-focal neurological exam likely consistent with BPPV ABA attempted 3x without relief in sx Labs ordered and without acute abnormality aside from mild hypokalemia Given meclizine and Valium, after Valium, improvement in symptoms, ambulatory with steady gait Low suspicion for central process Will refer to physical therapy for additional episodes of BPPV, will give Valium and meclizine for home Return precautions reviewed and patient expressed understanding Medical Records Medical records reviewed: Yes I reviewed the patient's medical records. Lab Data Lab results reviewed: Yes I reviewed the patient's lab results. HPI General Date/Time Provider Initiated Documentation: 12/13/22 09:28. HPI Narrative: This 32-year-old female presents for dizziness, side to side this morning at work. Describes the room spinning around her. She reports feeling quite anxious. Denies any chest pain or shortness of breath. States she has had shoulder episodes similar to this in the past. Denies any new medications or stressors. States she feels unsteady with walking. Denies any history of early cardiac disease or strokes. Denies any illicit drug use. Denies tobacco use. Denies chance of . Denies any vomiting, does report nausea. Related Data Home Medications Medication Instructions Recorded Confirmed cholecalciferol (vitamin D3) 50 50 mcg PO DAILY 10/27/20 12/13/22 mcg (2,000 unit) tablet magnesium chloride 64 mg mg PO 10/27/20 11/27/22 (magnesium chloride) tablet levonorgestrel 17.5 mcg/24 hrs 1 device intrauterine ONCE #1 ea 01/29/21 12/13/22 (5yrs) 19.5mg intrauterine device (Kyleena) cranberry 500 mg capsule 500 mg PO DAILY PRN 05/01/21 11/27/22 mupirocin 2 % topical ointment 1 applic topical TID #15 grams 12/18/21 11/27/22 clindamycin phosphate 1 % lotion 1 applic topical BID PRN acne #60 10/03/22 11/27/22 mL propranolol 10 mg tablet 5 - 10 mg PO TID PRN PVCs &/or 10/03/22 12/13/22 anxiety #30 tabs Saccharomyces boulardii 250 mg 5,000 mmu cells PO DAILY 10/15/22 12/13/22 capsule (Daily Probiotic (S. boulardii)) pantoprazole 40 mg tablet,delayed 40 mg PO DAILY #30 tabs 10/30/22 11/27/22 release omeprazole 20 mg capsule,delayed 20 mg PO BID #60 caps 11/25/22 12/13/22 release sertraline 50 mg tablet 100 mg PO DAILY #180 tabs 12/10/22 12/13/22 diazepam 5 mg tablet (Valium) 5 mg PO BID PRN #4 tabs 12/13/22 meclizine 25 mg tablet 25 mg PO BID PRN #10 tabs 12/13/22 Previous Rx's Medication Instructions Recorded levonorgestrel 17.5 mcg/24 hrs 1 device intrauterine ONCE #1 ea 01/29/21 (5yrs) 19.5mg intrauterine device (Kyleena) mupirocin 2 % topical ointment 1 applic topical TID #15 grams 12/18/21 clindamycin phosphate 1 % lotion 1 applic topical BID PRN acne #60 10/03/22 mL propranolol 10 mg tablet 5 - 10 mg PO TID PRN PVCs &/or 10/03/22 anxiety #30 tabs pantoprazole 40 mg tablet,delayed 40 mg PO DAILY #30 tabs 10/30/22 release omeprazole 20 mg capsule,delayed 20 mg PO BID #60 caps 11/25/22 release sertraline 50 mg tablet 100 mg PO DAILY #180 tabs 12/10/22 diazepam 5 mg tablet (Valium) 5 mg PO BID PRN #4 tabs 12/13/22 meclizine 25 mg tablet 25 mg PO BID PRN #10 tabs 12/13/22 Allergies Allergy/AdvReac Type Severity Reaction Status Date / Time Bee Sting Allergy Unknown Uncoded 12/13/22 10:05 General Stated Complaint: Dizzy/Sync ROCHELLE: 3 PFSH All Active Problems (Updated 12/13/22 @ 11:59 by EM Wagner) Dizziness (Acute) Vertigo (Acute) IUD surveillance (Acute ~01/2021) Kyleena Symptomatic PVCs (Acute ~2021) EP consult Anxiety about health (Acute ~2019) Restless leg syndrome (Acute) Anxiety and depression (Chronic 12/19/17) RX Sertraline Medical History Abnormal auditory perception (~01/15/21) Chronic tonsillitis Collapsed lung COVID-19 (~07/2022) Dyspareunia longstanding. 05/2021. Referral for eval for pelvic floor PT. Enlarged thyroid On PE only; consider F/U U/S 1 year in 2020; 2019 U/S essentially normal with normal size; normal TSH Facial trauma kicked by a horse, consult with [facility] Dr. Muller 02/09/19=closed subondular fx L side of mandible RH Fracture of transverse process of thoracic vertebra Halitosis (~01/15/21) Internal nasal lesion Left nare, papule per Hx ... but recently pulled off. 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; anxiety likely etiology Paresthesia 2020 normal brain MRI Pneumothorax, left Recurrent canker sores Tinnitus (~01/15/21) 12/2020 No CATS diet ENT Tonsil stone (~01/15/21) Surgical History EGD - MAC (10/10/17) History of excision of lesion 3 moles removed in office [place] teeth extraction Family History Maternal Grandfather Cardiovascular disease Maternal Grandmother Alzheimer's disease Migraine Anxiety Mother Migraine Anxiety Ulcerative colitis Hypertension S/P cholecystectomy Father Hypertension Esophageal cancer Nicotine use Other Heart disease Social History Smoking/Tobacco Use Status: Never Second Hand Exposure: Yes Smoking risk assessment performed?: Yes Alcohol Intake: current Alcohol Intake frequency: a few times a week Alcohol type: wine Drug use: Never Substance use type: does not use Adopted: No Caregiver/Support person: No Foster care: No Household members: none Housing: apartment Number of Children: 0 number of grandchildren: 0 Communication Needs: None Education Level: college Do you need help understanding health information?: Never 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[employer] Pets and animals: Yes (2) Pets and animals: dog(s) Sexually active: Yes Do you think of yourself as: straight/heterosexual Current gender identity: female What is your relationship status?: never How often do you talk on the phone with friends or family?: three or more times per week How often do you get together with friends or relatives?: three or more times per week Do you belong to any clubs or organized social groups?: no Panel score (0-1 are the most socially isolated patients): 1 What type of physical activity do you participate in: walking, bicycling and regular exercise Duration: 30-45 minutes/day Frequency: 5-6 times per week Maria Eugenia/Restoration: None Special maria eugenia needs: No Seatbelt use: always Helmet use: Yes Drive intox or ride w/intox diesel truck driver: No Working smoke detector in home: Yes Fire extinguisher in home: Yes Carbon monox detector in home: Yes Firearms in home: Yes Firearms unloaded and locked: No Do you feel safe at home: Yes Do you feel safe in your relationship?: Yes Female Reproductive History Menstrual control method: progestin IUCD History History 0 Para Hx # Term Pregnancies Multiple births Hx # Pregnancies Ectopic pregnancies AB induced Hx Number of Living Children AB spontaneous Exam Const General: cooperative, comfortable and no acute distress Orientation: alert and oriented x3 HENMT Other: moist mucous membranes, uvula midline, no nystagmus Eyes Pupils: PERRL EOM: EOM intact bilaterally Neck Other: no carotid bruit Resp Effort & Inspection: normal respiratory effort Auscultation: clear to auscultation bilaterally Cardio Rate: regular rate Rhythm: regular rhythm GI Inspection: normal to inspection Skin General skin exam: no rashes or lesions noted Neuro General: patient alert and patient oriented x3 Cranial Nerves: CN's II-XI intact bilaterally and tongue midline Cognition: normal cognition Speech: speech normal Gait: normal gait Motor: strength 5/5 throughout and no pronator drift Sensory Exam: no sensory deficits noted Psych Mood: anxious mood Course Vital Signs Vital signs: Vital Signs Pulse 89 12/13/22 10:00 Respiratory Rate 16 12/13/22 10:00 Blood Pressure 106/67 12/13/22 10:00 Pulse Oximetry 99 12/13/22 10:00 Pulse 89 12/13/22 10:00 Respiratory Rate 18 12/13/22 10:09 Respiratory Effort Normal, Non-Labored 12/13/22 10:09 Respiratory Depth Normal 12/13/22 10:09 Respiratory Pattern Normal 12/13/22 10:09 Blood Pressure 106/67 12/13/22 10:00 Blood Pressure Position Sitting 12/13/22 10:00 Pulse Oximetry 99 12/13/22 10:00 Oxygen Delivery Method Room Air 12/13/22 10:00 Oxygen Flow Rate 0 12/13/22 10:00 Lab/Test Results Lab/Test Results: Laboratory Tests Range/Units 12/13/22 12/13/22 12/13/22 09:53 09:53 09:58 WBC (4.4-10.8) 10^3/uL 7.97 RBC (3.93-5.22) 10^6/uL 4.67 Hgb (11.2-15.7) g/dL 14.2 Hct (36.0-46.0) % 42.0 MCV (80-95) fL 90 MCH (27.0-33.0) pg 30.4 MCHC (32.0-36.0) % 33.8 RDW (11.7-14.6) % 11.9 Plt Count (130-400) 10^3/uL 291 MPV (8.0-11.0) fL 9.6 Immature Gran % 0.1 Neutrophils % 67.5 Lymphocytes % 22.5 Monocytes % 8.0 Eosinophils % 1.4 Basophils % 0.5 Nucleated RBC % (0.0-0.3) % 0.0 Absolute Neutrophils (1.2-6.7) 10^3/uL 5.38 Absolute Lymphocytes (1.2-3.4) 10^3/uL 1.79 Absolute Monocytes (0.1-0.8) 10^3/uL 0.64 Absolute Eosinophils (0.0-0.7) 10^3/uL 0.11 Absolute Basophils (0.0-0.2) 10^3/uL 0.04 Sodium (136-145) mmol/L 139 Potassium (3.5-5.1) mmol/L 3.3 L Chloride (98-107) mmol/L 103 Carbon Dioxide (21.0-32.0) mmol/L 29.3 Anion Gap (3-11) mmol/L 6.7 BUN (7-18) mg/dL 18 Creatinine (0.55-1.02) mg/dL 0.7 Est GFR (CKD-EPI 2020) (mL/min/1.73m2) 119.24 Glucose (74-106) mg/dL 82 Calcium (8.5-10.1) mg/dL 9.0 Magnesium (1.8-2.4) mg/dL 2.0 Total Bilirubin (0.2-1.0) mg/dL 0.4 AST (15-37) U/L 13 L ALT (14-59) U/L 23 Alkaline Phosphatase (46-116) U/L 66 Total Protein (6.4-8.2) g/dL 7.4 Albumin (3.4-5.0) g/dL 4.0 TSH (0.36-3.74) uIU/mL 2.13 Urine Color (Yellow) Yellow Urine Clarity (Clear) Clear Urine pH (5-8) 7.0 Ur Specific [place] (1.005-1.025) 1.010 Urine Protein (Negative) mg/dL Negative Urine Ketones (Negative) mg/dL Negative Urine Blood (Negative) Negative Urine Nitrite (Negative) Negative Urine Bilirubin (Negative) Negative Urine Urobilinogen (Up to 0.2) mg/dL 0.2 Ur Leukocyte Esterase (Negative) Negative Urine Glucose (Negative) mg/dL Negative POC- Test(urine) Negative PAWSS Have you Been Recently Intoxicated or Drunk Within the Last 30 days?: No Have you Ever Experienced Previous Episodes of Alcohol Withdrawal?: No Have you ever Experienced Withdrawal Seizures?: No Have you ever Experienced Delirium Tremens(DT)s?: No Have you ever undergone Alcohol Rehabilitation Treatment (i.e, inpt ot outpatient treatment programs)?: No Have you ever Experienced Blackouts?: No Have you ever Combined Alcohol with other Downers within the last 90 days?: No Have you ever Combined Alcohol with any other Substance of Abuse during the last 90 days?: No Positive Blood Alcohol level on Presentation? [PCS.BAL]: No Evidence of Increased Autonomic Activity (i.e. HR>120, tremor, sweating, agitation, nausea)?: No Result: 0
[2022-12-13 12:10] VITALS: BP 107/73; PULSE 77; RESP 18; O2SAT 97
== END 2022-12-13 12:11 | disposition home or self-care (01) ==
PROVIDERS: Emergency Provider Physician Assistant; PCP Nurse Practitioner Adult Health
DX: R42 Dizziness and giddiness (principal); E87.6 Hypokalemia; Z86.16 Personal history of COVID-19
CPT/HCPCS: 80053; 81025; 93005; 96361; 96374; 99284; 81003; 83735; 84443; 85025; 93010

== ENCOUNTER 2022-12-25 19:00 | Emergency (ER) | payer OTHER, SELFPAY ==
--- NOTE | 2022-12-25 19:00 | RT.EKG_ITS ---
APPROVED REPORT Exam: Resting ECG Reason for Exam: tachycardia, chest pressure Patient Location: E HR:82 bpm ECG Measurements Heart Rate 82 AXIS DC 128 P 63 QRSd 84 QRS 78 QT 358 T 57 QTc 420 Conclusion Sinus rhythm...normal P axis, V-rate 60- 99 Probable left atrial enlargement...P >50mS, <-0.10mV V1 sinus rhythm, normal axis, nomrla intervals, non ischemic
[2022-12-25 19:11] VITALS: BP 128/83; PULSE 95; RESP 18; O2SAT 97
--- NOTE | 2022-12-25 19:17 | W.ED.GENAD ---
Discharge Plan Disposition Patient Disposition: Home Condition: Improving Discharge Details Chief Complaint: Anxiety Clinical Impression: Chest pain Primary Care Provider: Shae Love ED Provider: Ken Wells Home Meds and New Rx's Prescriptions: No Action mupirocin 2 % ointment 1 applic topical TID Qty: 15 0RF Rx Instructions: apply to inside of nose with fingertip Saccharomyces boulardii [Daily Probiotic (S. boulardii)] 250 mg capsule 5,000 mmu cells PO DAILY magnesium glycinate 100 mg magnesium capsule 100 mg PO DAILY cholecalciferol (vitamin D3) 50 mcg (2,000 unit) tablet 50 mcg PO DAILY Rx Instructions: Per Neuro - 10/27/20 EO Kyleena 17.5 mcg/24 hrs (5 yrs) 19.5 mg intrauterine device 1 device intrauterine ONCE Qty: 1 0RF Rx Instructions: as a single dose cranberry 500 mg capsule 500 mg PO DAILY PRN Rx Instructions: administer with meals clindamycin phosphate 1 % lotion 1 applic topical BID PRN (Reason: acne) Qty: 60 0RF Rx Instructions: apply up to twice per day PRN facial acne propranolol 10 mg tablet 5 - 10 mg PO TID PRN (Reason: PVCs &/or anxiety) Qty: 30 0RF pantoprazole 40 mg tablet,delayed release (DR/EC) 40 mg PO DAILY Qty: 30 1RF Hold Instructions: Changed by Provider omeprazole 20 mg capsule,delayed release(DR/EC) 20 mg PO BID Qty: 60 1RF Rx Instructions: Change in PPI 11/25/2022 (due to breakthrough symptoms) sertraline 50 mg tablet 100 mg PO DAILY Qty: 180 3RF Rx Instructions: TAKE 2 TABLETS BY MOUTH DAILY OR DIRECTED diazepam [Valium] 5 mg tablet 5 mg PO BID PRNQty: 4 0RF meclizine 25 mg tablet 25 mg PO BID PRNQty: 10 0RF Discharge Instructions Instructions: Chest Pain (ED) Additional Instructions: Please follow-up with your primary care physician. Please return to the emergency department for any worsening symptoms Medical Decision Making 32-year-old female presents with recurrent palpitations and chest discomfort for the past several weeks. Patient is normotensive nontachycardic not hypoxic. Lungs clear bilaterally normal heart sounds. Well-appearing no acute distress. Consider stress/anxiety versus costochondritis versus pleurisy versus less likely PE ACS aortic pathology or pneumothorax, no evidence of infection at this time. Will obtain basic labs D-dimer, EKG. Will encourage close follow-up and possible Holter monitor to evaluate further symptomatology. 20: 00 patient resting comfortably no acute distress. Labs unremarkable. EKG nonischemic normal sinus rhythm normal axis normal intervals. Patient to follow-up with primary physician HPI General Date/Time Provider Initiated Documentation: 12/25/22 19:01. HPI Narrative: 32-year-old female presents with intermittent palpitations and chest pressure over the past several weeks to months. Related Data Home Medications Medication Instructions Recorded Confirmed cholecalciferol (vitamin D3) 50 50 mcg PO DAILY 10/27/20 12/25/22 mcg (2,000 unit) tablet levonorgestrel 17.5 mcg/24 hrs 1 device intrauterine ONCE #1 ea 01/29/21 12/25/22 (5yrs) 19.5mg intrauterine device (Kyleena) cranberry 500 mg capsule 500 mg PO DAILY PRN 05/01/21 12/25/22 mupirocin 2 % topical ointment 1 applic topical TID #15 grams 12/18/21 12/25/22 clindamycin phosphate 1 % lotion 1 applic topical BID PRN acne #60 10/03/22 12/25/22 mL propranolol 10 mg tablet 5 - 10 mg PO TID PRN PVCs &/or 10/03/22 12/25/22 anxiety #30 tabs Saccharomyces boulardii 250 mg 5,000 mmu cells PO DAILY 10/15/22 12/25/22 capsule (Daily Probiotic (S. boulardii)) pantoprazole 40 mg tablet,delayed 40 mg PO DAILY #30 tabs 10/30/22 12/25/22 release omeprazole 20 mg capsule,delayed 20 mg PO BID #60 caps 11/25/22 12/25/22 release sertraline 50 mg tablet 100 mg PO DAILY #180 tabs 12/10/22 12/25/22 diazepam 5 mg tablet (Valium) 5 mg PO BID PRN #4 tabs 12/13/22 12/25/22 meclizine 25 mg tablet 25 mg PO BID PRN #10 tabs 12/13/22 12/25/22 magnesium glycinate 100 mg PO DAILY 12/20/22 12/25/22 Previous Rx's Medication Instructions Recorded levonorgestrel 17.5 mcg/24 hrs 1 device intrauterine ONCE #1 ea 01/29/21 (5yrs) 19.5mg intrauterine device (Kyleena) mupirocin 2 % topical ointment 1 applic topical TID #15 grams 12/18/21 clindamycin phosphate 1 % lotion 1 applic topical BID PRN acne #60 10/03/22 mL propranolol 10 mg tablet 5 - 10 mg PO TID PRN PVCs &/or 10/03/22 anxiety #30 tabs pantoprazole 40 mg tablet,delayed 40 mg PO DAILY #30 tabs 10/30/22 release omeprazole 20 mg capsule,delayed 20 mg PO BID #60 caps 11/25/22 release sertraline 50 mg tablet 100 mg PO DAILY #180 tabs 12/10/22 diazepam 5 mg tablet (Valium) 5 mg PO BID PRN #4 tabs 12/13/22 meclizine 25 mg tablet 25 mg PO BID PRN #10 tabs 12/13/22 Allergies Allergy/AdvReac Type Severity Reaction Status Date / Time Bee Sting Allergy Unknown Uncoded 12/25/22 19:35 General Stated Complaint: Anxiety ROCHELLE: 3 Review of Systems Narrative: Review of Systems Constitutional: negative Eyes: negative ENT: negative Cardiovascular: Chest pain, palpitation Respiratory: negative Gastrointestinal: negative : negative Musculoskeletal: negative Skin: negative Neurologic: negative Psych: negative PFSH All Active Problems (Updated 12/25/22 @ 20:02 by Ken Wells MD) Chest pain (Acute) Dizziness (Acute) Vertigo (Acute) IUD surveillance (Acute ~01/2021) Kyleena Symptomatic PVCs (Acute ~2021) EP consult Anxiety about health (Acute ~2019) Restless leg syndrome (Acute) Anxiety and depression (Chronic 12/19/17) RX Sertraline Medical History Abnormal auditory perception (~01/15/21) Chronic tonsillitis Collapsed lung COVID-19 (~07/2022) Dyspareunia longstanding. 05/2021. Referral for eval for pelvic floor PT. Enlarged thyroid On PE only; consider F/U U/S 1 year in 2020; 2019 U/S essentially normal with normal size; normal TSH Facial trauma kicked by a horse, consult with [facility] [place] plastics Dr. Muller 02/09/19=closed subondular fx L side of mandible RH Fracture of transverse process of thoracic vertebra Halitosis (~01/15/21) Internal nasal lesion Left nare, papule per Hx ... but recently pulled off. [ ] sample [ ] ENT eval Left rib fracture Migraine headache without aura Nasal lesion Numerous skin moles Abd mole/skin tag; Rt arm mole/ingrown hair(?); Left knee excoriated mole (possible punch Bx for removal and Dx?) Palpitations 2019: normal TSH & normal 14-day electronic device monitor; anxiety likely etiology Paresthesia 2020 normal brain MRI Pneumothorax, left Recurrent canker sores Tinnitus (~01/15/21) 12/2020 No CATS diet ENT Tonsil stone (~01/15/21) Surgical History EGD - MAC (10/10/17) History of excision of lesion 3 moles removed in office [place] teeth extraction Family History Maternal Grandfather Cardiovascular disease Maternal Grandmother Alzheimer's disease Migraine Anxiety Mother Migraine Anxiety Ulcerative colitis Hypertension S/P cholecystectomy Father Hypertension Esophageal cancer Nicotine use Other Heart disease Social History Smoking/Tobacco Use Status: Never Second Hand Exposure: Yes Smoking risk assessment performed?: Yes Alcohol Intake: current Alcohol Intake frequency: a few times a month Alcohol type: wine Drug use: Never Substance use type: does not use Adopted: No Caregiver/Support person: No Foster care: No Household members: none Housing: apartment Number of Children: 0 number of grandchildren: 0 Communication Needs: None Education Level: college Do you need help understanding health information?: Never 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 [employer] Pets and animals: Yes (2) Pets and animals: dog(s) Sexually active: Yes Do you think of yourself as: straight/heterosexual Current gender identity: female What is your relationship status?: never How often do you talk on the phone with friends or family?: three or more times per week How often do you get together with friends or relatives?: three or more times per week Do you belong to any clubs or organized social groups?: no Panel score (0-1 are the most socially isolated patients): 1 What type of physical activity do you participate in: walking, bicycling and regular exercise Duration: 30-45 minutes/day Frequency: 5-6 times per week Maria Eugenia/Buddhist: None Special maria eugenia needs: No Seatbelt use: always Helmet use: Yes Drive intox or ride w/intox mobile lounge driver: No Working smoke detector in home: Yes Fire extinguisher in home: Yes Carbon monox detector in home: Yes Firearms in home: Yes Firearms unloaded and locked: No Do you feel safe at home: Yes Do you feel safe in your relationship?: Yes Female Reproductive History Menstrual control method: progestin IUCD History History 0 Para Hx # Term Pregnancies Multiple births Hx # Pregnancies Ectopic pregnancies AB induced Hx Number of Living Children AB spontaneous Exam Narrative Exam Narrative: Physical Examination General: alert, awake, cooperative, resting comfortably, no acute distress HEENT: normocephalic, atraumatic; PERRL, EOM intact, conjunctiva normal; no nasal discharge; moist mucous membranes, oral and pharyngeal mucosa normal, tolerating secretions Neck: supple, trachea midline; full ROM Chest: normal to inspection Respiratory: normal respiratory effort, speaking in full sentences, clear to auscultation, no wheezing, rales or rhonchi Cardiac: regular rate, regular rhythm, S1S2 intact, no murmurs rubs or gallops Skin: no lesions, rashes or trauma appreciated Neuro: AAOx3, normal speech, moving all extremities Course Vital Signs Vital signs: Vital Signs Pulse 95 H 12/25/22 19:11 Respiratory Rate 18 12/25/22 19:11 Blood Pressure 128/83 12/25/22 19:11 Pulse Oximetry 97 12/25/22 19:11 Pulse 95 H 12/25/22 19:11 Respiratory Rate 18 12/25/22 19:11 Blood Pressure 128/83 12/25/22 19:11 Pulse Oximetry 97 12/25/22 19:11 Oxygen Delivery Method Room Air 12/25/22 19:11 Oxygen Flow Rate 0 12/25/22 19:11
[2022-12-25 19:25] LABS: Abs Immature Grans 0.01 10^3/uL (0.0-0.06); Absolute Basophil Count 0.05 10^3/uL (0.0-0.2); Absolute Eosinophil Count 0.26 10^3/uL (0.0-0.7); Absolute Lymphocyte Count 3.17 10^3/uL (1.2-3.4); Absolute Monocyte Count 0.86 10^3/uL (0.1-0.8); Absolute Neutrophil Count 4.72 10^3/uL (1.2-6.7); Basophils % 0.6; Eosinophils % 2.9; HCT 40.4 % (36.0-46.0); HGB 13.3 g/dL (11.2-15.7); Immature Grans % 0.1; MCH 29.9 pg (27.0-33.0); MCHC 32.9 % (32.0-36.0); MCV 91 fL (80-95); MPV 9.8 fL (8.0-11.0); Monocytes % 9.5; Neutrophils % 51.9; Platelet Count 283 10^3/uL (130-400); RBC 4.45 10^6/uL (3.93-5.22); RDW 11.9 % (11.7-14.6); RDW-SD 39.8 fL; WBC 9.07 10^3/uL (4.4-10.8)
[2022-12-25 19:29] VITALS: RESP 18
[2022-12-25 19:39] LABS: ALT 20 U/L (14-59); AST 13 U/L (15-37); Albumin 3.8 g/dL (3.4-5.0); Alkaline Phosphatase 63 U/L (46-116); Anion Gap 6.1 mmol/L (3-11); BUN 21 mg/dL (7-18); Bilirubin, Total 0.3 mg/dL (0.2-1.0); CO2 26.9 mmol/L (21.0-32.0); CREATININE 0.8 mg/dL (0.55-1.02); Calcium 9.2 mg/dL (8.5-10.1); Chloride 107 mmol/L (98-107); Estimated GFR 101.59 (mL/min/1.73m2); Glucose 93 mg/dL (74-106); Potassium 3.8 mmol/L (3.5-5.1); Sodium 140 mmol/L (136-145); Total Protein 7.2 g/dL (6.4-8.2)
[2022-12-25 19:57] LABS: D-Dimer 202 ng/mlFEU (<500)
== END 2022-12-25 20:09 | disposition home or self-care (01) ==
PROVIDERS: Emergency Provider Emergency Medicine; PCP Nurse Practitioner Adult Health
DX: R07.89 Other chest pain (principal); R00.2 Palpitations; R00.0 Tachycardia, unspecified
CPT/HCPCS: 80053; 93005; 99283; 85025; 85379; 93010

== ENCOUNTER 2023-04-25 11:16 | Outpatient (CLI) | payer OTHER, SELFPAY ==
[2023-04-25 11:22] LABS: Abs Immature Grans 0.01 10^3/uL (0.0-0.06); Absolute Basophil Count 0.03 10^3/uL (0.0-0.2); Absolute Eosinophil Count 0.18 10^3/uL (0.0-0.7); Absolute Monocyte Count 0.51 10^3/uL (0.1-0.8); Absolute Neutrophil Count 4.23 10^3/uL (1.2-6.7); Basophils % 0.4; Eosinophils % 2.7; HCT 41.4 % (36.0-46.0); HGB 13.8 g/dL (11.2-15.7); Immature Grans % 0.1; Lymphocytes % 26.6; MCH 29.7 pg (27.0-33.0); MCHC 33.3 % (32.0-36.0); MCV 89 fL (80-95); MPV 9.3 fL (8.0-11.0); Monocytes % 7.5; Neutrophils % 62.7; Platelet Count 291 10^3/uL (130-400); RBC 4.64 10^6/uL (3.93-5.22); RDW 12.7 % (11.7-14.6); RDW-SD 41.8 fL; WBC 6.76 10^3/uL (4.4-10.8)
[2023-04-25 11:37] LABS: ESR < 1 mm/hr (0-20)
[2023-04-25 12:35] LABS: ALT 17 U/L (14-59); AST 13 U/L (15-37); Alkaline Phosphatase 60 U/L (46-116); Anion Gap 9.6 mmol/L (3-11); BUN 12 mg/dL (7-18); Bilirubin, Total 0.5 mg/dL (0.2-1.0); CO2 26.4 mmol/L (21.0-32.0); CREATININE 0.7 mg/dL (0.55-1.02); Calcium 9.1 mg/dL (8.5-10.1); Chloride 103 mmol/L (98-107); Creatine Kinase 57 U/L (26-192); Estimated GFR 118.51 (mL/min/1.73m2); FREE T4 0.86 ng/dL (0.76-1.46); Glucose 76 mg/dL (74-106); Potassium 3.8 mmol/L (3.5-5.1); Sodium 139 mmol/L (136-145); TSH (W/Ref FT4) 1.82 uIU/mL (0.36-3.74); Total Protein 7.4 g/dL (6.4-8.2)
[2023-04-25 12:36] LABS: C-Reactive Protein < 0.05 mg/dL (0.0-0.3)
[2023-04-25 18:07] LABS: Rheumatoid Factor <8.6 IU/mL (<12.0)
[2023-04-25 18:31] LABS: T3, Total 129 ng/dL (97-169)
[2023-04-28 08:54] LABS: HBs Antibody, Quant >1000.0 mIU/mL (See Note); Hepatitis B Surface Ab Positive (See Note)
[2023-04-28 10:05] LABS: Hepatitis A Antibody IgM Negative (Negative); Hepatitis B Core Antibody Negative (Negative); Hepatitis B surface Ag Negative (Negative); Hepatitis C Ab w Rflx HCV PCR Negative (Negative)
[2023-04-28 10:49] LABS: Cyclic Citrullinated Peptide <2.5 U/mL (<5.0)
[2023-04-28 11:10] LABS: Lyme Ab w Rflx to Lyme Confirm Negative (Negative); Measles IgG Antibody Positive (See Note); Mumps Antibody IgG Negative (See Note); Rubella IgG Ab (UVM) Positive (See Note); Varicella IgG Antibody Positive (See Note)
[2023-04-28 14:29] LABS: Anaplasma phagocytophilum Negative (Negative); B. miyamotoi PCR Negative (Negative); Babesia divergens/MO-1 Negative (Negative); Babesia duncani Negative (Negative); Babesia microti Negative (Negative); Ehrlichia chaffeensis Negative (Negative); Ehrlichia ewingii/canis Negative (Negative); Ehrlichia muris eauclairensis Negative (Negative)
[2023-04-29 14:54] LABS: Parvovirus B19 Ab, IgG Negative (Negative); Parvovirus B19 Ab, IgM Negative (Negative)
[2023-04-30 13:01] LABS: Tetanus IgG Ab Positive
== END 2023-04-25 11:17 | disposition home or self-care (01) ==
LOC: LBO 11:16
PROVIDERS: PCP Nurse Practitioner Adult Health; Visit Provider Nurse Practitioner Adult Health
DX: Z01.84 Encounter for antibody response examination; Z02.0 Encounter for examination for admission to educational institution; M25.511 Pain in right shoulder
CPT/HCPCS: 36415; 80053; 82550; 85652; 86200; 86704; 86706; 86709; 86787; 86803; 87340; 87798; 84439; 84443; 84480; 85025; 86140; 86431; 86618; 86735; 86747; 86762; 86765; 86774

== ENCOUNTER 2023-05-20 09:29 | Outpatient (CLI) | payer OTHER, SELFPAY ==
--- NOTE | 2023-05-20 09:18 | DI.RAD_ITS ---
Exam(s) XR KNEE RT 3V AP,LAT,CRISTINO EXAM: XR KNEE RT 3V AP,LAT,CRISTINO CLINICAL HISTORY: RIGHT KNEE PAIN. TECHNIQUE: 2D digital imaging was performed of the right knee. Three views obtained. Merchant, AP an d lateral views were obtained. COMPARISON: No priors for comparison. FINDINGS: BONES: No acute fracture is present. No bony destructive lesion is seen. JOINTS: The knee is normally aligned. No joint effusion is seen. SOFT TISSUE: Normal. IMPRESSION: Unremarkable radiographs of the right knee. DATA REPOSITORY: RADIATION DOSE DELIVERED:
== END 2023-05-20 09:30 | disposition home or self-care (01) ==
LOC: DIORS 09:29
PROVIDERS: PCP Nurse Practitioner Adult Health; Visit Provider Student in an Organized Health Care Education/Training Program
DX: M25.561 Pain in right knee (principal)
CPT/HCPCS: 73562

== ENCOUNTER → 2023-05-27 12:52 | Outpatient (CLI) | payer OTHER, SELFPAY ==
--- NOTE | 2023-05-27 11:00 | DI.RAD_ITS ---
Exam(s) XR THORACIC SPINE COMPLETE EXAM: XR THORACIC SPINE COMPLETE CLINICAL HISTORY: eval vert ht; bony path affecting neck? S29.012A STRAIN UPPER BACK. TECHNIQUE: 2D digital imaging was performed. Three views. COMPARISON: No exams were available for comparison FINDINGS: BONES: There is no fracture or destructive lesion. The vertebral bodies and posterior elements are un remarkable. No developmental deformities. ALIGNMENT: Within normal limits. DISKS: Interverebral disc spaces are maintained. SOFT TISSUE: Visualized lungs are clear. Heart size is normal. IMPRESSION: Unremarkable radiographs of the thoracic spine. DATA REPOSITORY: RADIATION DOSE DELIVERED:
--- NOTE | 2023-05-27 11:00 | DI.RAD_ITS ---
Exam(s) XR CERVICAL SP COMP W FLEX/EXT EXAM: XR CERVICAL SP COMP W FLEX/EXT CLINICAL HISTORY: eval vert ht, spine curvature M54.2 CERVICALGIA. TECHNIQUE: 2D digital imaging was performed. Seven views were performed. COMPARISON: No exams were available for comparison. FINDINGS: BONES: No fracture or destructive lesion. Vertebral bodies are unremarkable. No developmental defor mities. DISKS: Intervertebral disc spaces are maintained. No significant degenerative changes. ALIGNMENT: Cervical spinal alignment is within normal limits. The odontoid and atlantoaxial articulat ions are normal. There is no subluxation with flexion or extension. SOFT TISSUE: Normal. The lung apices are clear. IMPRESSION: Unremarkable radiographs of the cervical spine. DATA REPOSITORY: RADIATION DOSE DELIVERED:
== END ==
PROVIDERS: PCP Nurse Practitioner Adult Health; Visit Provider Student in an Organized Health Care Education/Training Program
DX: S29.012A Strain of muscle and tendon of back wall of thorax, initial encounter; X58.XXXA Exposure to other specified factors, initial encounter
CPT/HCPCS: 72052; 72072

== ENCOUNTER 2023-06-11 11:24 | Outpatient (CLI) | payer OTHER, SELFPAY ==
--- NOTE | 2023-06-11 09:45 | DI.RAD_ITS ---
Exam(s) XR SHOULDER RT COMPLETE 2+V EXAM: XR SHOULDER RT COMPLETE 2+V CLINICAL HISTORY: RIGHT SHOULDER PAIN. TECHNIQUE: 2D digital imaging was performed of the right shoulder. Two images were obtained. Axill asya and Grashey views were obtained. COMPARISON: No exams were available for comparison FINDINGS: BONES: No acute fracture is present. No bony destructive lesion is seen. JOINTS: No dislocation present. The glenohumeral and acromioclavicular joints are well maintained. SOFT TISSUE: Normal. IMPRESSION: Unremarkable radiographs of the right shoulder. DATA REPOSITORY: RADIATION DOSE DELIVERED:
== END 2023-06-11 11:25 | disposition home or self-care (01) ==
LOC: DIORS 11:24
PROVIDERS: PCP Nurse Practitioner Adult Health; Visit Provider Student in an Organized Health Care Education/Training Program
DX: M25.511 Pain in right shoulder (principal)
CPT/HCPCS: 73030

== ENCOUNTER → 2023-07-04 02:54 | Outpatient (CLI) | payer OTHER, SELFPAY ==
--- NOTE | 2023-07-04 07:45 | DI.MRI_ITS ---
Exam(s) MR CERVICAL SPINE WO EXAM: MR CERVICAL SPINE WO CLINICAL HISTORY: eval radiculopathy,tingling in extremities,neck pain,radiculopathy c8 TECHNIQUE: Multiplanar multisequence MRI of the cervical spine was performed without intravenous con trast. COMPARISON: CR XR CERVICAL SP COMP W FLEX/EXT from 05/27/2023 FINDINGS: CERVICOMEDULLARY JUNCTION: Intact with no evidence of cerebellar tonsillar ectopia. No obvious abnor mality of the odontoid process. No evidence of Chiari 1 malformation. CERVICAL SPINAL CORD: There is no abnormal signal in the cervical spinal cord and no evidence of foca l cord atrophy nor focal cord swelling. OSSEOUS:There are no cervical fractures evident. No significant osseous lesions in the cervical vert ebrae. Cervical curvature is maintained. INDIVIDUAL LEVELS: C2-3: No disc herniation nor central canal stenosis. No foraminal stenosis. No facet arthropathy. C3-4: No disc herniation nor central canal stenosis.No facet arthropathy. No foraminal stenosis. C4-5: Normal disc height and signal. However,there is a focal central subligamentous disc protrusion which extends posteriorly 2-3 mm and is approximately 7-8 mm wide. This indents the thecal sac but not the spinal cord. There is no abnormal signal in the cord at this level. The disc protrusion zarco s not extend into the exiting neural foramina. Facet joints at this level appear unremarkable.. The re also no Luschka joint osteophytes. No foraminal stenosis on either side. C5-6: Normal disc height. No disc herniation or central canal stenosis. No obvious facet arthropath y. No Luschka joint osteophytes. No significant foraminal stenosis. C6-7: Normal disc height. No disc herniation nor canal stenosis. No Luschka joint osteophytes. No significant facet arthropathy. No foraminal stenosis. C7-T1: No disc herniation nor central canal stenosis. No facet arthropathy.No foraminal stenosis. IMPRESSION: 1. There is a central subligamentous focal disc protrusion at C4-5 level as described above. This in dents the thecal sac but not the spinal cord at this level. Central canal dimensions are within norm al limits. There is no significant foraminal stenosis at this level. No significant Luschka joint o steophytes. No significant facet arthropathy. 2. Upper levels appear unremarkable. DATA REPOSITORY:
== END ==
PROVIDERS: PCP Nurse Practitioner Adult Health; Visit Provider Student in an Organized Health Care Education/Training Program
DX: R20.2 Paresthesia of skin (principal); M50.21 Other cervical disc displacement, high cervical region; M54.2 Cervicalgia
CPT/HCPCS: 72141

== ENCOUNTER → 2023-07-04 03:01 | Outpatient (CLI) | payer OTHER, SELFPAY ==
--- NOTE | 2023-07-04 07:45 | DI.MRI_ITS ---
Exam(s) MR UPPER JOINT RT WO EXAM: MR UPPER JOINT RT WO CLINICAL HISTORY: EVAL CYST joint of shoulder, m25.819. TECHNIQUE: Multiplanar multisequence MRI was performed. COMPARISON: 11 June 2023 right shoulder x-ray FINDINGS: Exam somewhat limited by motion. BONES: There is no fracture or contusion pattern. JOINTS:The acromioclavicular joint is normal. The glenohumeral joint is normal. TENDONS: Supraspinatus: Unremarkable. Infraspinatus: Unremarkable. Subscapularis: Unremarkable. Teres Minor: Unremarkable. Biceps and [place]: Unremarkable. MUSCLES: Unremarkable. GLENOID LABRUM: Unremarkable on this noncontrast examination. SOFT TISSUES: Unremarkable. OTHER: Subacromial and subdeltoid bursae shows no fluid. Small amount fluid in subcoracoid bursa.. IMPRESSION: Unremarkable MRI of the shoulder. DATA REPOSITORY:
== END ==
PROVIDERS: PCP Nurse Practitioner Adult Health; Visit Provider Student in an Organized Health Care Education/Training Program
DX: M50.21 Other cervical disc displacement, high cervical region (principal); M54.2 Cervicalgia
CPT/HCPCS: 73221

== ENCOUNTER 2023-11-13 18:21 | Emergency (ER) | payer OTHER, SELFPAY ==
[2023-11-13 18:24] VITALS: BP 171/85; PULSE 90; RESP 16; TEMP 36.5; O2SAT 99
--- NOTE | 2023-11-13 19:00 | RT.EKG_ITS ---
APPROVED REPORT Exam: Resting ECG Reason for Exam: visual change Patient Location: E HR:85 bpm ECG Measurements Heart Rate 85 AXIS OH 134 P 71 QRSd 91 QRS 74 QT 365 T 47 QTc 435 Conclusion Sinus rhythm...normal P axis, V-rate 60- 99 Probable left atrial enlargement...P >50mS, <-0.10mV V1
[2023-11-13 19:28] LABS: Abs Immature Grans 0.03 10^3/uL (0.0-0.06); Absolute Basophil Count 0.05 10^3/uL (0.0-0.2); Absolute Eosinophil Count 0.18 10^3/uL (0.0-0.7); Absolute Lymphocyte Count 2.65 10^3/uL (1.2-3.4); Absolute Monocyte Count 0.74 10^3/uL (0.1-0.8); Absolute Neutrophil Count 7.07 10^3/uL (1.2-6.7); Basophils % 0.5; Eosinophils % 1.7; HCT 44.1 % (36.0-46.0); HGB 14.5 g/dL (11.2-15.7); Immature Grans % 0.3; Lymphocytes % 24.7; MCH 29.6 pg (27.0-33.0); MCHC 32.9 % (32.0-36.0); MCV 90 fL (80-95); MPV 9.5 fL (8.0-11.0); Monocytes % 6.9; Neutrophils % 65.9; Platelet Count 307 10^3/uL (130-400); RDW 12.2 % (11.7-14.6); RDW-SD 40.6 fL; WBC 10.72 10^3/uL (4.4-10.8)
[2023-11-13 19:34] LABS: ESR 2 mm/hr (0-20)
[2023-11-13 19:43] LABS: ALT 20 U/L (14-59); AST 14 U/L (15-37); Albumin 4.5 g/dL (3.4-5.0); Alkaline Phosphatase 65 U/L (46-116); Anion Gap 10.9 mmol/L (3-11); BUN 17 mg/dL (7-18); Bilirubin, Total 0.3 mg/dL (0.2-1.0); CO2 25.1 mmol/L (21.0-32.0); Calcium 9.7 mg/dL (8.5-10.1); Chloride 106 mmol/L (98-107); Estimated GFR 77.24 (mL/min/1.73m2); Glucose 85 mg/dL (74-106); Potassium 3.6 mmol/L (3.5-5.1); Sodium 142 mmol/L (136-145); Total Protein 8.4 g/dL (6.4-8.2)
--- NOTE | 2023-11-13 19:45 | ED.GENADUL_ITS ---
Discharge Plan Disposition Patient Disposition: Home Condition: Stable Discharge Details Clinical Impression: Acute loss of vision Primary Care Provider: Shae Love ED Provider: Dequan Rivera Home Meds and New Rx's Prescriptions: Continued magnesium glycinate 100 mg magnesium capsule 100 mg PO DAILY omeprazole 20 mg capsule,delayed release(DR/EC) 20 mg PO BID PRN Rx Instructions: Change in PPI 11/25/2022 (due to breakthrough symptoms) Kyleena 17.5 mcg/24 hrs (5 yrs) 19.5 mg intrauterine device 1 device intrauterine ONCE Qty: 1 0RF Rx Instructions: as a single dose cranberry 500 mg capsule 500 mg PO DAILY PRN Rx Instructions: administer with meals cholecalciferol (vitamin D3) 125 mcg (5,000 unit) tablet 125 mcg PO DAILY sertraline 50 mg tablet 100 mg PO DAILY Qty: 180 3RF Rx Instructions: TAKE 2 TABLETS BY MOUTH DAILY OR DIRECTED famotidine 20 mg tablet 20 mg PO QHS Discontinued propranolol 10 mg tablet 5 - 10 mg PO TID PRN (Reason: PVCs &/or anxiety) Qty: 30 0RF Discharge Instructions Additional Instructions: Please contact your primary care physician to arrange follow-up. Call tomorrow. Please follow-up with neurology. Additional outpatient diagnostic testing is indicated. If there is any delay following up with neurology tomorrow, please follow-up in the emergency department. Return to the ER immediately for any worsening or new concerning symptoms. Referrals: Shae Love NP [Primary Care Provider] - Alva Madden MD [ [facility] STAFF PHYSICIAN] - [facility] General Mode of arrival: ambulatory . Date/Time Provider Initiated Documentation: 11/13/23 18:32 . Limitations to Documentation: no limitations . Information obtained by: patient . HPI Narrative: 33-year-old female presents with chief complaint of visual loss. Patient notes loss of vision in her right eye that came on suddenly just prior to arrival. Patient describes sensation of like staring into the sun. While patient notes difficulty describing she states visual disturbance may have progressed to her left eye as well. Symptoms lasted approximately 15 to 20 minutes then resolved. She had no pain during the episode. Of note, patient had similar episode involving her right eye predominantly 4 days ago that also lasted about 15 minutes. She notes this episode was followed by mild left frontal headache. Patient is been symptoms free for the past few days until today. She denies headache at this time. Patient does note late last week he bale of hay fell onto her upper back and neck. She denies neck pain. No numbness or tingling. Related Data Home Medications Medication Instructions Recorded Confirmed levonorgestrel 17.5 mcg/24 hrs 1 device intrauterine ONCE #1 ea 01/29/21 11/13/23 (5yrs) 19.5mg intrauterine device (Kyleena) cranberry 500 mg capsule 500 mg PO DAILY PRN 05/01/21 11/13/23 sertraline 50 mg tablet 100 mg (2 x 50 mg) PO DAILY #180 12/10/22 11/13/23 tabs magnesium glycinate 100 mg PO DAILY 12/20/22 11/13/23 famotidine 20 mg tablet 20 mg PO QHS 12/31/22 11/13/23 cholecalciferol (vitamin D3) 125 125 mcg PO DAILY 03/03/23 11/13/23 mcg (5,000 unit) tablet omeprazole 20 mg capsule,delayed 20 mg PO BID PRN 05/20/23 11/13/23 release Previous Rx's Medication Instructions Recorded levonorgestrel 17.5 mcg/24 hrs 1 device intrauterine ONCE #1 ea 01/29/21 (5yrs) 19.5mg intrauterine device (Kyleena) sertraline 50 mg tablet 100 mg (2 x 50 mg) PO DAILY #180 12/10/22 tabs Allergies Allergy/AdvReac Type Severity Reaction Status Date / Time Bee Sting Allergy Unknown Other (See Uncoded 10/15/23 14:56 Comment) General Stated Complaint: EyeProblem ROCHELLE: 3 Review of Systems All systems reviewed & are unremarkable except as noted in HPI and below Constitutional Constitutional: Denies fever(s) Neurologic Neurologic: Reports as per HPI Exam Const General: cooperative HENMT Head: normocephalic and atraumatic Mouth: moist mucous membranes Eyes Sclera: normal sclerae EOM: EOM intact bilaterally Neck Neck: trachea midline and supple Resp Auscultation: clear to auscultation bilaterally, no rales, no rhonchi and no wheezes Cardio Rate: regular rate and not tachycardic Rhythm: regular rhythm GI Palpation: soft Neuro General: patient alert, patient awake, patient oriented x3 and tone normal Cranial Nerves: CN's II-XI intact bilaterally and PERRL Cognition: normal cognition Speech: speech normal Gait: normal gait Motor: strength 5/5 throughout Sensory Exam: no sensory deficits noted Extrem General: no edema Psych Appearance: grossly normal Mental Status: mental status grossly normal Speech and Movement: speech and movement normal Affect: anxious affect Course Vital Signs Vital signs: Vital Signs Temperature 36.5 C 11/13/23 18:24 Pulse 90 11/13/23 18:24 Respiratory Rate 16 11/13/23 18:24 Blood Pressure 171/85 H 11/13/23 18:24 Pulse Oximetry 99 11/13/23 18:24 Temperature 36.5 C 11/13/23 18:24 Temperature Source Tympanic 11/13/23 18:24 Pulse 90 11/13/23 18:24 Respiratory Rate 16 11/13/23 18:24 Respiratory Effort Normal 11/13/23 18:28 Blood Pressure 171/85 H 11/13/23 18:24 Blood Pressure Position Sitting 11/13/23 18:24 Pulse Oximetry 99 11/13/23 18:24 Oxygen Delivery Method Room Air 11/13/23 18:24 Oxygen Flow Rate 0 11/13/23 18:24 Pain Level 0 11/13/23 18:24 Lab/Test Results Lab/Test Results: Laboratory Tests Range/Units 11/13/23 19:12 WBC (4.4-10.8) 10^3/uL 10.72 RBC (3.93-5.22) 10^6/uL 4.90 Hgb (11.2-15.7) g/dL 14.5 Hct (36.0-46.0) % 44.1 MCV (80-95) fL 90 MCH (27.0-33.0) pg 29.6 MCHC (32.0-36.0) % 32.9 RDW (11.7-14.6) % 12.2 Plt Count (130-400) 10^3/uL 307 MPV (8.0-11.0) fL 9.5 Immature Gran % 0.3 Neutrophils % 65.9 Lymphocytes % 24.7 Monocytes % 6.9 Eosinophils % 1.7 Basophils % 0.5 Nucleated RBC % (0.0-0.3) % 0.0 Absolute Neutrophils (1.2-6.7) 10^3/uL 7.07 H Absolute Lymphocytes (1.2-3.4) 10^3/uL 2.65 Absolute Monocytes (0.1-0.8) 10^3/uL 0.74 Absolute Eosinophils (0.0-0.7) 10^3/uL 0.18 Absolute Basophils (0.0-0.2) 10^3/uL 0.05 POC- Test(urine) Negative Medical Decision Making 2099 --33-year-old female here with painless visual loss that came on suddenly affecting her right eye predominantly with possible involvement of the left, lasted approximately 10 to 15 minutes and resolved. She had similar episode involving her left eye predominantly 4 days ago. She did have some mild headache after prior episode. Symptoms now completely resolved. Patient neurologically intact. Her blood pressure is more elevated than usual. Systolic was in the 170s on arrival. Blood pressure has progressively decreased to now 123/74. Patient does have significant anxiety. Concern for amaurosis fugax - given binocular component I am concerned for migraine versus less likely vertebrobasilar ischemia. Initial labs reviewed and nondiagnostic. EKG reviewed to assess for arrhythmia and interpreted by me: Please see report, sinus rhythm 85 bpm, probable left atrial enlargement, otherwise nondiagnostic. On reassessment, patient complaining of some head fullness. Will obtain CT of the head. [place] [facility] [place] I spoke with Dr. Fung, discussed ED presentation and course, he does not feel that transfer is indicated for further evaluation at this time and agrees with diagnostic workup and treatment plan as outlined including discharge if continues to have no symptoms and return tomorrow for MRI brain AND MRA of the brain and neck. He does recommend close outpatient follow-up with neurology. 2229 -- CT of the head was interpreted by radiology: No acute process. Patient reassessed and remained stable here with no recurrence of neurologic deficits. Plan for outpatient follow-up as indicated above. If there is any delay obtaining outpatient follow-up tomorrow, patient to return to the emergency department. Usual customary discharge instructions were reviewed with the patient. She was encouraged to return immediately should she have any worsening or new concerning symptoms. Lab Data Lab results reviewed: Yes I reviewed the patient's lab results. Labs: Laboratory Tests Range/Units 11/13/23 19:12 WBC (4.4-10.8) 10^3/uL 10.72 RBC (3.93-5.22) 10^6/uL 4.90 Hgb (11.2-15.7) g/dL 14.5 Hct (36.0-46.0) % 44.1 MCV (80-95) fL 90 MCH (27.0-33.0) pg 29.6 MCHC (32.0-36.0) % 32.9 RDW (11.7-14.6) % 12.2 Plt Count (130-400) 10^3/uL 307 MPV (8.0-11.0) fL 9.5 Immature Gran % 0.3 Neutrophils % 65.9 Lymphocytes % 24.7 Monocytes % 6.9 Eosinophils % 1.7 Basophils % 0.5 Nucleated RBC % (0.0-0.3) % 0.0 Absolute Neutrophils (1.2-6.7) 10^3/uL 7.07 H Absolute Lymphocytes (1.2-3.4) 10^3/uL 2.65 Absolute Monocytes (0.1-0.8) 10^3/uL 0.74 Absolute Eosinophils (0.0-0.7) 10^3/uL 0.18 Absolute Basophils (0.0-0.2) 10^3/uL 0.05 ESR (0-20) mm/hr 2 Sodium (136-145) mmol/L 142 Potassium (3.5-5.1) mmol/L 3.6 Chloride (98-107) mmol/L 106 Carbon Dioxide (21.0-32.0) mmol/L 25.1 Anion Gap (3-11) mmol/L 10.9 BUN (7-18) mg/dL 17 Creatinine (0.55-1.02) mg/dL 1.0 Est GFR (CKD-EPI 2020) (mL/min/1.73m2) 77.24 Glucose (74-106) mg/dL 85 Calcium (8.5-10.1) mg/dL 9.7 Total Bilirubin (0.2-1.0) mg/dL 0.3 AST (15-37) U/L 14 L ALT (14-59) U/L 20 Alkaline Phosphatase (46-116) U/L 65 C-Reactive Protein (<or=0.5) mg/dL < 0.50 Total Protein (6.4-8.2) g/dL 8.4 H Albumin (3.4-5.0) g/dL 4.5 Quality:SDOH Health Related Social Needs: No Data to Display PFSH All Active Problems (Updated 11/13/23 @ 22:23 by Dequan Rivera MD) Acute loss of vision (Acute) Cubital tunnel syndrome on right (Acute) Paresthesia and pain of both upper extremities (Acute ~05/2023) Thoracic outlet syndrome of right thoracic outlet (Acute) Superior labrum gdtxfhlp-yc-rzqtolakp (SLAP) tear of right shoulder (Acute) Cervical radiculopathy at C8 (Acute ~05/2023) Tingling in extremities (Acute) on/off, presumed from work; follows ulnar and/or C8 pattern Upper back strain (Acute) Neck pain (Acute) Exacerbation w/o injury; Hx injury (horse head butt)(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 05/2021. Referral for eval for pelvic floor PT. Numerous skin moles Abd mole/skin tag; Rt arm mole/ingrown hair(?); Left knee excoriated mole (possible punch Bx for removal and Dx?) Abnormal auditory perception (~01/15/21) Halitosis (~01/15/21) Tonsil stone (~01/15/21) Tinnitus (~01/15/21) 12/2020 No CATS diet ENT Recurrent canker sores Internal nasal lesion Left nare, papule per Hx ... but recently pulled off. 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 Muller 02/09/19=closed subondular fx L side of mandible RH Migraine headache without aura Surgical History H/O esophagogastroduodenoscopy (~02/27/23) With Biopsy-[facility] History of excision of lesion 3 moles removed in office [place] teeth extraction EGD - [facility] (10/10/17) Family History Maternal Grandfather Cardiovascular disease Maternal Grandmother Alzheimer's disease Migraine Anxiety Mother Migraine Anxiety Ulcerative colitis Hypertension S/P cholecystectomy Father Hypertension Esophageal cancer Nicotine use Other Heart disease Social History Smoking/Tobacco Use Status: Never Second Hand Exposure: Yes Smoking risk assessment performed?: Yes Alcohol Intake: current Alcohol Intake frequency: a few times a month Alcohol type: wine Drug use: Never Substance use type: does not use Adopted: No Caregiver/Support person: No Foster care: No Household members: none Housing: apartment Number of Children: 0 number of grandchildren: 0 Communication Needs: None Education Level: college Do you need help understanding health information?: Never 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 Health and rehab [employer] Pets and animals: Yes (2) Pets and animals: dog(s) Sexually active: Yes Do you think of yourself as: straight/heterosexual Current gender identity: female What is your relationship status?: never How often do you talk on the phone with friends or family?: three or more times per week How often do you get together with friends or relatives?: three or more times per week Do you belong to any clubs or organized social groups?: no Panel score (0-1 are the most socially isolated patients): 1 What type of physical activity do you participate in: walking, bicycling and regular exercise Duration: 30-45 minutes/day Frequency: 5-6 times per week Maria Eugenia/Bahai: None Special maria eugenia needs: No Seatbelt use: always Helmet use: Yes Drive intox or ride w/intox medical delivery driver: No Working smoke detector in home: Yes Fire extinguisher in home: Yes Carbon monox detector in home: Yes Firearms in home: Yes Firearms unloaded and locked: No Do you feel safe at home: Yes Do you feel safe in your relationship?: Yes Female Reproductive History Menstrual control method: progestin IUCD History History 0 Para Hx # Term Pregnancies Multiple births Hx # Pregnancies Ectopic pregnancies AB induced Hx Number of Living Children AB spontaneous
[2023-11-13 20:00] LABS: C-Reactive Protein < 0.50 mg/dL (<or=0.5)
--- NOTE | 2023-11-13 20:15 | DI.CT_ITS ---
Exam(s) CT HEAD WO EXAM: CT HEAD WO CLINICAL HISTORY: head pressure, visual loss. TECHNIQUE: Imaging Protocol: Axial computed tomography images with coronal and sagittal reformatted images were created and reviewed COMPARISON: CT CT HEAD CERVICAL SPINE WO from 01/27/2021 FINDINGS: There are no skull fractures. There is no fluid in the visualized paranasal sinuses. There is no evidence of intracranial hemorrhage, mass effect, or shift of midline structures. There are no extra-axial fluid collections. The ventricles are not enlarged or shifted and there is no blo od within the ventricular system nor within the basal cisterns. IMPRESSION: No acute intracranial findings on this noninfused CT scan of the brain. RADIATION DOSE DELIVERED: Total DLP DATA REPOSITORY: All CT scans at this facility are submitted to the National Radiology Data Registry (NRDR) Dose Index Registry (DIR) with the [employer] (ACR). RADIATION OPTIMIZATION: All CT scans at this facility use at least one of these dose optimization te chniques: automated exposure control; mA and/or kV adjustment per patient size (includes targeted exa ms where dose is matched to clinical indication); or iterative reconstruction.
[2023-11-13 20:19] VITALS: BP 123/74; PULSE 96; RESP 16; O2SAT 100
--- NOTE | 2023-11-13 20:52 | DI.VRAD_ITS ---
PROCEDURE INFORMATION: Exam: CT Head Without Contrast Exam date and time: 11/13/2023 8:30 PM Age: 33 years old Clinical indication: Head pressure, visual loss TECHNIQUE: Imaging protocol: Computed tomography of the head without contrast. COMPARISON: CT HEAD CERVICAL SPINE WO 01/27/2021 4:36 PM FINDINGS: Brain: There is no acute intracranial hemorrhage, mass effect or midline shift. There is no large acute territorial cerebral infarct. Cerebral ventricles: No ventriculomegaly. Paranasal sinuses: Visualized sinuses are unremarkable. No fluid levels. Mastoid air cells: Visualized mastoid air cells are well aerated. Bones/joints: Unremarkable. No acute fracture. Soft tissues: Unremarkable. IMPRESSION: No acute intracranial hemorrhage, mass effect or midline shift. Dictated and Authenticated by: Radha Ayon MD. Ordering:JENNA Baires MD
[2023-11-13 22:16] VITALS: BP 119/74; PULSE 91; TEMP 36.7; O2SAT 100
== END 2023-11-13 22:39 | disposition home or self-care (01) ==
PROVIDERS: Emergency Provider Student in an Organized Health Care Education/Training Program; PCP Nurse Practitioner Adult Health
DX: H53.9 Unspecified visual disturbance (principal)
CPT/HCPCS: 36415; 80053; 81025; 85652; 93005; 99285; 70450; 85025; 86140; 93010; 99284

== ENCOUNTER 2023-11-20 10:57 | Outpatient (RCR) | payer OTHER, SELFPAY ==
--- NOTE | 2023-11-21 15:00 | HOLTER_ITS ---
APPROVED REPORT Conclusion This is a 24-hour Holter monitor Rhythm throughout was sinus with an average heart rate of 78. Minimum 38, maximum 124 There were no ventricular dysrhythmias There were no supraventricular dysrhythmias Patient symptoms did not correspond to any dysrhythmia
== END 2023-11-23 23:59 | disposition home or self-care (01) ==
LOC: CARDOPNVT 10:57
PROVIDERS: PCP Nurse Practitioner Adult Health; Visit Provider Internal Medicine Cardiovascular Disease
DX: I49.3 Ventricular premature depolarization (principal)
CPT/HCPCS: 93225; 93226

== ENCOUNTER → 2023-11-24 03:14 | Outpatient (CLI) | payer OTHER, SELFPAY ==
--- NOTE | 2023-11-24 14:15 | DI.US_ITS ---
APPROVED REPORT EXAM: Comprehensive 2D, Doppler, and color-flow Echocardiogram Patient Location: Out-Patient [employer]cycle [employer]iding Instructor: Roxana Hoskins RDCS (AE) Indications: PVC's Other Information Study Quality: Good Conclusion Normal left ventricular wall thickness and chamber size. EF is 60-65% Wall motion normal Normal right ventricular size and function Atria are normal in size There are no structural valvualr abnormalities Trace aortic , tricuspid and mitral regurgitation Wall motion Left Ventricle The left ventricle is normal size. The left ventricular systolic function is normal. The left ventric ular ejection fraction is within the normal range. There is normal left ventricular wall thickness. T here is normal LV segmental wall motion. There is no ventricular septal defect visualized. LVEF is 60 -65%. Right Ventricle The right ventricle is normal size. The right ventricular systolic function is normal. Atria The left atrium size is normal. The right atrium size is normal. The interatrial septum is intact wit h no evidence for an atrial septal defect. Aortic Valve The aortic valve is normal in structure. Aortic valve is trileaflet. There is no aortic valvular sten osis. Trace aortic regurgitation. Mitral Valve The mitral valve is normal in structure. No evidence of mitral valve stenosis. Trace mitral regurgita tion. Tricuspid Valve The tricuspid valve is normal in structure. There is no tricuspid valve stenosis. Trace tricuspid reg urgitation. Unable to assess PA pressure. Pulmonic Valve The pulmonary valve is normal in structure. There is no pulmonic valvular stenosis. There is no pulmo kenia valvular regurgitation. Great Vessels The aortic root is normal in size. Descending aorta is normal in caliber. Aortic arch is normal in ca liber. IVC is normal in size and collapses >50% with inspiration. Pericardium There is no pericardial effusion. 2D Dimensions IVSD d PLAX 0.69 cm F: 0.6-1.0 Ao Root d 2.29 cm F: 2.7 - 3.3 LVPW d PLAX 0.72 cm F: 0.6 - 1.0 LVID d PLAX 4.19 cm F: 3.8 - 5.2 LVDs 2.70 cm F: 2.2 - 3.5 LV EF Teichholz 65.3 % FS 35.45 % LV EDV (Teich) 78.1 mL LV ESV (Teich) 27.1 mL M-Mode TAPSE 2.16 cm (M/F) >1.7 Auto EF LV EDV A4C 83.6 mL LV EDV A2C 90.0 mL LV EDV BP 86.5 mL LV ESV A4C 31.8 mL LV ESV A2C 34.4 mL LV ESV BP 32.6 mL LVEF(%) A4C 61.9 % LVEF(%) A2C 61.8 % LVEF(%) BP 62.3 % LV SV A4C 51.7 ml LV SV A2C 55.6 ml LV SV BP 53.9 ml LV CO A4C 4.0 L/min LV CO A2C 4.0 L/min LV CO BP 4.0 L/min HR A4C 78.26 BPM HR A2C 72.29 BPM LV EDV Index (BP) LA Volume LA Length A4C 4.3 cm LA Length A2C 4.3 cm LA Area A4C s 11.82 cm2 LA Area A2C s 11.36 cm2 LA Vol A4C A-L 27.47 mL LA Vol A2C A-L 25.27 mL LA Vol Biplane A-L 26.4 mL LA Vol/BSA A4C A-L LA Vol/BSA A2C A-L LA Vol/BSA BP A-L 15.1 mL/m2 LA Vol A4C MOD 25.3 mL LA Vol A2C MOD 23.9 mL LA Vol BP MOD 24.6 mL RA Volume RA Area A4C 8.7 cm2 RA ESV A4C (A-L) 16.0mL RA Vol/BSA A4C A-L RA Length A4C 4.0 cm RA ESV A4C (MOD) 15.6mL LV Diastology MV E' medial 0.129 (>0.07 m/s) MV E Vmax 0.86 (0.4-1.3 m/s) MV E/E' MED 6.69 (<14) MV A Vmax 0.75 (0.4-1.3 m/s) MV E' lateral 0.149 (>0.1 m/s) E/A Ratio 1.1 MV E/E' LAT 5.77 (<14) MV E' Average 0.139 m/s MV E/E'(average) 6.20 Aortic Valve AoV Vmax 1.43 m/s LVOT Vmax 1.28 m/s AoV Peak Grad 8.2 mmHg LVOT Peak Grad 6.6 mmHg AoV Area (Vmax) 2.28 cm2 LVOT VTI 0.262 m AoV VTI 0.293 m LVOT Mean Grad 3.8 mmHg AoV Mean Kevan. 0.97 m/s LVOT SV 66.68 mL AoV Mean Grad 4.3 mmHg LVOT Diam s 1.75 cm AoV Area (VTI) 2.27 cm2 Velocity Ratio 0.90 Mitral Valve MV DT 200 (160-240 msec) MV Vmax TIPS 0.78 m/s MV Mean Grad 1.3 (<2mmHg) MV VTI 0.254 m Pulmonary Valve PV Vmax 1.12 (0.5-1.5 m/s) RVOT Vmax 1.06 m/s PV Peak Grad 5.0 mmHg RVOT Peak Gr. 4.5 mmHg PV Mean Kevan 0.77 m/s RVOT VTI 0.183 m PV Mean Grad 2.7 mmHg RVOT Mean Gr. 2.4 mmHg Tricuspid Valve RA Pressure 3.00 mmHg TV S' 0.13 m/s
== END ==
PROVIDERS: PCP Nurse Practitioner Adult Health; Visit Provider Internal Medicine Cardiovascular Disease
DX: I49.3 Ventricular premature depolarization (principal)
CPT/HCPCS: 93306

== ENCOUNTER → 2023-12-03 04:25 | Outpatient (CLI) | payer OTHER, SELFPAY ==
[2023-12-03] MEDS: Normal Saline Flush 10 ML SYR IVP (08:02)
[2023-12-03] MEDS: Gadoterate meglumine 20 ML SYRINGE 13 ML IVP (08:03)
--- NOTE | 2023-12-03 08:30 | DI.MRI_ITS ---
Exam(s) MR BRAIN WO/W EXAM: MR BRAIN WO/W CLINICAL HISTORY: episode x 3 loss vision, ? ocular migraine,H53.139 TECHNIQUE: Multiplanar multisequence MRI of the brain was performed. Both noninfused and contrast i nfused sequences were performed. IV Contrast injected was cc Dotarem. COMPARISON: MR MR BRAIN WO from 10/31/[address] HEAD WO from 11/13/2023 FINDINGS: CEREBRAL PARENCHYMA: No evidence of intracranial hemorrhage, mass effect nor shift of midline structu re. No extraaxial fluid collections. Ventricles are not enlarged nor shifted. There is no significant focal signal abnormality in the cerebellar hemispheres nor within the fariha, m idbrain, and thalami. There is no abnormal signal abnormality in the periventricular white matter. No evidence of demyelinating disease. DWI: No areas of restricted diffusion to suggest acute ischemic event. SWI: No microhemorrhages evident. There are no ring enhancing lesions in the brain. There is no abnormal meningeal enhancement. PITUITARY GLAND: No mass nor parasellar abnormality. No obvious abnormality in the cavernous sinuses. FLOW VOIDS: The expected flow void are noted. No evidence of obvious aneurysm nor obvious vascular ma lformation. PARANASAL SINUSES: The visualized paranasal sinuses appear unremarkable. ORBITS: No obvious abnormal findings. IMPRESSION: 1. No significant intracranial findings on this MRI scan of the brain. 2. No abnormal enhancing intracranial findings. There are no ring enhancing lesions in the brain and there is no abnormal meningeal enhancement. 3. There is no evidence of demyelinating disease. DATA REPOSITORY:
== END ==
PROVIDERS: PCP Nurse Practitioner Adult Health; Visit Provider Nurse Practitioner
DX: H53.133 Sudden visual loss, bilateral (principal); G43.109 Migraine with aura, not intractable, without status migrainosus
CPT/HCPCS: 70553

== ENCOUNTER 2024-03-04 10:19 | Outpatient (CLI) | payer OTHER, SELFPAY | END 2024-03-04 10:20 | disposition home or self-care (01) | LOC: CARDOPNVT 10:19 | PROVIDERS: PCP Nurse Practitioner Adult Health; Visit Provider Nurse Practitioner Adult Health | DX: R00.0 Tachycardia, unspecified (principal); R55 Syncope and collapse; G90.1 Familial dysautonomia [Riley-Day] | CPT/HCPCS: 93270 ==

== ENCOUNTER 2024-03-05 17:04 | Outpatient (CLI) | payer OTHER, SELFPAY ==
[2024-03-05 14:26] LABS: HCT 38.4 % (36.0-46.0); HGB 13.1 g/dL (11.2-15.7); MCH 30.3 pg (27.0-33.0); MCHC 34.1 % (32.0-36.0); MCV 89 fL (80-95); MPV 9.9 fL (8.0-11.0); Platelet Count 285 10^3/uL (130-400); RBC 4.33 10^6/uL (3.93-5.22); WBC 7.96 10^3/uL (4.4-10.8)
[2024-03-05 14:41] LABS: Anion Gap 7.6 mmol/L (3-11); BUN 13 mg/dL (7-18); CO2 24.4 mmol/L (21.0-32.0); CREATININE 0.7 mg/dL (0.55-1.02); Chloride 107 mmol/L (98-107); Estimated GFR 117.77 (mL/min/1.73m2); Glucose 101 mg/dL (74-106); Potassium 3.8 mmol/L (3.5-5.1); Sodium 139 mmol/L (136-145)
== END 2024-03-05 17:05 | disposition home or self-care (01) ==
LOC: LBO 17:06
PROVIDERS: PCP Nurse Practitioner Adult Health; Visit Provider Student in an Organized Health Care Education/Training Program
DX: R53.83 Other fatigue (principal); G90.1 Familial dysautonomia [Riley-Day]; I10 Essential (primary) hypertension; Z91.89 Other specified personal risk factors, not elsewhere classified
CPT/HCPCS: 36415; 80048; 85027; 83735

== ENCOUNTER 2024-03-18 08:48 | Outpatient (CLI) | payer OTHER, SELFPAY ==
[2024-03-18 10:48] LABS: ESR < 1 mm/hr (0-20)
[2024-03-18 11:51] LABS: Ferritin 45 ng/mL (8-252); Folate 16.6 ng/mL (8.6-20.0); TSH (W/Ref FT4) 1.25 uIU/mL (0.36-3.74); Vitamin B12 659 pg/mL (193-986)
[2024-03-18 12:30] LABS: Creatine Kinase 52 U/L (26-192)
[2024-03-18 12:31] LABS: C-Reactive Protein < 0.50 mg/dL (<or=0.5)
[2024-03-19 11:55] LABS: Lyme Ab w Rflx to Lyme Confirm Negative (Negative)
[2024-03-19 14:10] LABS: Albumin 62.4 % (55.8-66.1); Albumin g/dL 4.1 g/dL (3.6-5.2); Total Protein 6.6 g/dL (6.3-8.2)
[2024-03-19 15:52] LABS: ANA Interpretation Negative (Negative)
[2024-03-19 15:53] LABS: Albumin, Urine % 26.9 %; Albumin, Urine mg/dL 2 mg/dL; Globulins, Urine % 73.1 %; Globulins, Urine mg/dL 4 mg/dL; Immunotyping, Urine (See Note); Total Protein Urine 6 mg/dL (See Note)
[2024-03-21 00:02] LABS: Anaplasma phagocytophilum Negative (Negative); B. miyamotoi PCR Negative (Negative); Babesia divergens/MO-1 Negative (Negative); Babesia duncani Negative (Negative); Babesia microti Negative (Negative); Ehrlichia chaffeensis Negative (Negative); Ehrlichia ewingii/canis Negative (Negative); Ehrlichia muris eauclairensis Negative (Negative)
[2024-03-23 12:21] LABS: Thiamine (Vitamin B1), WB 135 nmol/L (70-180)
== END 2024-03-18 08:49 | disposition home or self-care (01) ==
LOC: LBO 08:50
PROVIDERS: PCP Nurse Practitioner Adult Health; Visit Provider Physician Assistant
DX: G62.9 Polyneuropathy, unspecified (principal); R29.898 Other symptoms and signs involving the musculoskeletal system; R20.2 Paresthesia of skin; M79.601 Pain in right arm; M79.602 Pain in left arm; R20.0 Anesthesia of skin
CPT/HCPCS: 36415; 82550; 84156; 84166; 85652; 86335; 87798; 82175; 82300; 82607; 82728; 82746; 83655; 83825; 84165; 84425; 84443; 86038; 86140; 86618

== ENCOUNTER 2024-03-23 07:41 | Emergency (ER) | payer OTHER, SELFPAY ==
[2024-03-23] VITALS (12 sets, daily range): BP systolic 104–130; BP diastolic 60–112; PULSE 75–107; RESP 8–21; TEMP 36.9; O2SAT 98–100
--- NOTE | 2024-03-23 07:30 | RT.EKG_ITS ---
APPROVED REPORT Exam: Resting ECG Reason for Exam: racing heart rate Patient Location: E HR:77 bpm ECG Measurements Heart Rate 77 AXIS MO 119 P 61 QRSd 86 QRS 80 QT 361 T 68 QTc 410 Conclusion Sinus rhythm...normal P axis, V-rate 60- 99
--- NOTE | 2024-03-23 07:58 | W.ED.GENAD ---
Discharge Plan Disposition Patient Disposition: Home Condition: Stable Discharge Details Clinical Impression: Tachycardia, Palpitations Primary Care Provider: Shae Love ED Provider: Saurav Singh Home Meds and New Rx's Prescriptions: Continued magnesium glycinate 100 mg magnesium capsule 100 mg PO DAILY omeprazole 20 mg capsule,delayed release(DR/EC) 20 mg PO BID PRN Rx Instructions: Change in PPI 11/25/2022 (due to breakthrough symptoms) cholecalciferol (vitamin D3) 125 mcg (5,000 unit) tablet 125 mcg PO DAILY Complex B-100 Tablet Extended Release 1 tab PO DAILY clonazepam 0.5 mg tablet 0.25 - 0.5 mg PO BID PRN (Reason: acute anxiety) Qty: 14 0RF famotidine 20 mg tablet 20 mg PO QHS PRN epinephrine [EpiPen 2-Miguel A] 0.3 mg/0.3 mL auto-injector 0.3 mg IM ONCE PRN (Reason: anaphylaxis) Qty: 1 1RF Rx Instructions: as a single dose propranolol 10 mg tablet 5 - 10 mg PO BID PRN (Reason: tachycardia&anxiety) Qty: 30 0RF sertraline 50 mg tablet 100 mg PO DAILY Discharge Instructions Additional Instructions: Your lab work did not show concerning findings at this time You can increase your dose of propranolol in the morning up to 20 mg if needed. Follow-up with your primary care provider within 1 to 2 weeks especially if you continue to have symptoms. If you feel more ill or have significantly worsening palpitations or severe chest pain return to the emergency department for reevaluation. HPI General Mode of arrival: ambulatory. Date/Time Provider Initiated Documentation: 03/23/24 07:44. Limitations to Documentation: no limitations. Information obtained by: patient. History of Present Illness 34 year old F presents to the emergency department with the chief complaint of tachycardia, described as moderate, Patient started experiencing this hour(s) (1) and it has been constant. No relieving factors improve symptom(s), No exacerbating factors reported . Patient notes shortness of breath; denies chest pain and fever/chills. Patient did receive the following treatments prior to arrival, none Related Data Home Medications ?Medication ?Instructions ?Recorded ?Confirmed magnesium glycinate 100 mg PO DAILY 12/20/22 03/23/24 cholecalciferol (vitamin D3) 125 125 mcg PO DAILY 03/03/23 03/23/24 mcg (5,000 unit) tablet omeprazole 20 mg capsule,delayed 20 mg PO BID PRN 05/20/23 03/23/24 release famotidine 20 mg tablet 20 mg PO QHS PRN 11/17/23 03/23/24 epinephrine 0.3 mg/0.3 mL 0.3 mg (0.3 mL) IM ONCE PRN 12/29/23 03/23/24 injection, auto-injector (EpiPen anaphylaxis #1 ea 2-Miguel A) vitamin B complex (Complex B-100 1 tab PO DAILY 02/25/24 03/23/24 tablet,extended release) clonazepam 0.5 mg tablet 0.25 - 0.5 mg (0.5 - 1 x 0.5 mg) 03/11/24 03/23/24 PO BID PRN acute anxiety #14 tabs propranolol 10 mg tablet 5 - 10 mg (0.5 - 1 x 10 mg) PO BID 03/19/24 03/23/24 PRN tachycardia&anxiety #30 tabs sertraline 50 mg tablet 100 mg PO DAILY 03/23/24 03/23/24 Previous Rx's ?Medication ?Instructions ?Recorded epinephrine 0.3 mg/0.3 mL 0.3 mg (0.3 mL) IM ONCE PRN 12/29/23 injection, auto-injector (EpiPen anaphylaxis #1 ea 2-Miguel A) clonazepam 0.5 mg tablet 0.25 - 0.5 mg (0.5 - 1 x 0.5 mg) 03/11/24 PO BID PRN acute anxiety #14 tabs propranolol 10 mg tablet 5 - 10 mg (0.5 - 1 x 10 mg) PO BID 03/19/24 PRN tachycardia&anxiety #30 tabs Allergies Allergy/AdvReac Type Severity Reaction Status Date / Time bee venom protein (honey bee) Allergy Severe Anaphylaxis Verified 03/23/24 07:54 General Stated Complaint: Palpitatns ROCHELLE: 3 Review of Systems All systems reviewed & are unremarkable except as noted in HPI and below Constitutional Constitutional: Denies chills, Denies fever(s) and Denies weakness Cardiovascular Cardiovascular: Denies chest pain and Reports dyspnea Respiratory Respiratory: Denies cough and Reports dyspnea Gastrointestinal Gastrointestinal: Denies vomiting Musculoskeletal Musculoskeletal: Denies joint swelling Neurologic Neurologic: Denies weakness Exam Const General: no acute distress Orientation: alert HENMT Head: normal to inspection Ears: external ears normal General nose exam: external nose normal Mouth: moist mucous membranes Eyes General: appearance normal, both eyes and all related structures Neck Neck: normal visual inspection Resp Effort & Inspection: normal respiratory effort and able to speak in complete sentences Auscultation: clear to auscultation bilaterally Cardio Jugular venous pressure: no JVD Rate: regular rate Heart Sounds: no murmurs Skin General skin exam: no rashes or lesions noted Neuro General: patient alert and patient oriented x3 Extrem General: normal to inspection Psych Mental Status: mental status grossly normal Course Vital Signs Vital signs: Vital Signs Temperature 36.9 C 03/23/24 07:45 Pulse 87 03/23/24 07:45 Respiratory Rate 11 L 03/23/24 07:45 Blood Pressure 118/80 03/23/24 07:45 Pulse Oximetry 99 03/23/24 07:45 Temperature 36.9 C 03/23/24 07:45 Temperature Source Temporal Artery Scan 03/23/24 07:45 Pulse 87 03/23/24 07:45 Respiratory Rate 11 L 03/23/24 07:45 Respiratory Effort Normal 03/23/24 07:52 Blood Pressure 118/80 03/23/24 07:45 Blood Pressure Position Sitting 03/23/24 07:45 Pulse Oximetry 99 03/23/24 07:45 Oxygen Delivery Method Room Air 03/23/24 07:45 Oxygen Flow Rate 0 03/23/24 07:45 Pain Level 1 03/23/24 07:45 Medical Decision Making 34-year-old female with a history of issues with tachycardia and shortness of breath apparently COVID in the past, comes in with continued episodes where she gets tachycardic especially with standing. She was at work standing up and her heart rate jumped to 130, she sat down and it went down to 90 and she took one of her propranolol that she has prescribed. She currently states she feels mildly short of breath otherwise is at her baseline. She denies any severe chest pain, no fevers, no chills, no leg pain. She has clear lungs, no murmurs no JVD, no calf tenderness. Suspect she could have POTS, will check CBC, CMP, troponin in the my suspicion is low check a D-dimer given her reported heart rate of 130. Labs unremarkable, given lack of chest pain do not feel delta troponin would be of benefit. She is hemodynamically stable heart rate in the 70s. She is stable for discharge will follow-up with her PCP and return precautions given. I did advise she can increase her dose of propranolol up to 20 mg in the morning if needed. Differential Diagnosis Differential Diagnosis: Orthostasis, POTS, anemia, electrolyte abnormality, PE Medical Records Medical records reviewed: Yes I reviewed the patient's medical records. Lab Data Lab results reviewed: Yes I reviewed the patient's lab results. ECG Data Attestation: I personally reviewed and interpreted this ECG (s) as follows: Prior ECG tracings: available for review Interpretation: Sinus rhythm, rate of 77, PA 119, no STEMI Quality:SDOH Health Related Social Needs: No Data to Display PFSH All Active Problems (Updated 03/23/24 @ 09:04 by Saurav Singh MD) Palpitations (Acute) Tachycardia (Acute) Numbness and tingling of both legs (Acute) Leg weakness, bilateral (Acute) Ocular migraine (Acute) Cubital tunnel syndrome on right (Acute) Paresthesia and pain of both upper extremities (Acute ~05/2023) Thoracic outlet syndrome of right thoracic outlet (Acute) Superior labrum [id number] (SLAP) tear of right shoulder (Acute) Cervical radiculopathy at C8 (Acute ~05/2023) Tingling in extremities (Acute) on/off, presumed from work; follows ulnar and/or C8 pattern Upper back strain (Acute) Neck pain (Acute) Exacerbation w/o injury; Hx injury (horse head butt)(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 05/2021. Referral for eval for pelvic floor PT. Numerous skin moles Abd mole/skin tag; Rt arm mole/ingrown hair(?); Left knee excoriated mole (possible punch Bx for removal and Dx?) Abnormal auditory perception (~01/15/21) Halitosis (~01/15/21) Tonsil stone (~01/15/21) Tinnitus (~01/15/21) 12/2020 No CATS diet ENT Recurrent canker sores Internal nasal lesion Left nare, papule per Hx ... but recently pulled off. [ ] sample [ ] ENT eval Paresthesia 2020 normal brain MRI Palpitations 2019: normal TSH & normal 14-day panel monitor; anxiety likely etiology Enlarged thyroid On PE only; consider F/U U/S 1 year in 2020; 2019 U/S essentially normal with normal size; normal TSH Fracture of transverse process of thoracic vertebra Left rib fracture Pneumothorax, left Facial trauma kicked by a horse, consult with [facility] Dr. Muller 02/09/19=closed subondular fx L side of mandible RH Migraine headache without aura Surgical History H/O esophagogastroduodenoscopy (~02/27/23) With Biopsy-[facility] History of excision of lesion 3 moles removed in office [place] teeth extraction EGD - [facility] (10/10/17) Family History Maternal Grandfather Cardiovascular disease Maternal Grandmother Alzheimer's disease Migraine Anxiety Mother Migraine Anxiety Ulcerative colitis Hypertension S/P cholecystectomy Father Hypertension Esophageal cancer Nicotine use Other Heart disease Social History Smoking/Tobacco Use Status: Never Second Hand Exposure: Yes Smoking risk assessment performed?: Yes Alcohol Intake: current Alcohol Intake frequency: a few times a month Alcohol type: wine Drug use: Never Substance use type: does not use Adopted: No Caregiver/Support person: No Foster care: No Household members: none Housing: apartment Number of Children: 0 number of grandchildren: 0 Communication Needs: None Education Level: college Do you need help understanding health information?: Never 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 Pets and animals: Yes (2) Pets and animals: dog(s) Sexually active: Yes Do you think of yourself as: straight/heterosexual Current gender identity: female What is your relationship status?: never How often do you talk on the phone with friends or family?: three or more times per week How often do you get together with friends or relatives?: three or more times per week Do you belong to any clubs or organized social groups?: no Panel score (0-1 are the most socially isolated patients): 1 What type of physical activity do you participate in: walking, bicycling and regular exercise Duration: 30-45 minutes/day Frequency: 5-6 times per week Maria Eugenia/Episcopal: None Special maria eugenia needs: No Seatbelt use: always Helmet use: Yes Drive intox or ride w/intox 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
[2024-03-23 08:17] LABS: Abs Immature Grans 0.01 10^3/uL (0.0-0.06); Absolute Basophil Count 0.04 10^3/uL (0.0-0.2); Absolute Eosinophil Count 0.24 10^3/uL (0.0-0.7); Absolute Monocyte Count 0.43 10^3/uL (0.1-0.8); Basophils % 0.6 %; Eosinophils % 3.6 %; HCT 43.4 % (36.0-46.0); HGB 14.4 g/dL (11.2-15.7); Immature Grans % 0.1 %; Lymphocytes % 23.8 %; MCH 30.2 pg (27.0-33.0); MCHC 33.2 % (32.0-36.0); MCV 91 fL (80-95); MPV 9.7 fL (8.0-11.0); Monocytes % 6.4 %; Neutrophils % 65.5 %; Platelet Count 283 10^3/uL (130-400); RBC 4.77 10^6/uL (3.93-5.22); RDW-SD 40.5 fL; WBC 6.72 10^3/uL (4.4-10.8)
[2024-03-23] MEDS: Normal Saline 1,000 ML 1000 ML IV (08:22)
[2024-03-23 08:43] LABS: ALT 20 U/L (14-59); AST 15 U/L (15-37); Alkaline Phosphatase 59 U/L (46-116); Anion Gap 9.1 mmol/L (3-11); BUN 11 mg/dL (7-18); Bilirubin, Total 0.41 mg/dL (0.2-1.0); CO2 26.9 mmol/L (21.0-32.0); CREATININE 0.7 mg/dL (0.55-1.02); Calcium 9.3 mg/dL (8.5-10.1); Chloride 108 mmol/L (98-107); Estimated GFR 117.77 (mL/min/1.73m2); Glucose 85 mg/dL (74-106); Magnesium 1.9 mg/dL (1.8-2.4); Sodium 144 mmol/L (136-145); TSH (W/Ref FT4) 2.18 uIU/mL (0.36-3.74); Total Protein 7.4 g/dL (6.4-8.2)
[2024-03-23 08:44] LABS: Troponin I < 50 ng/L (< or =60)
[2024-03-23 08:54] LABS: D-Dimer 339 ng/mlFEU (<500)
== END 2024-03-23 09:12 | disposition home or self-care (01) ==
PROVIDERS: Emergency Provider Emergency Medicine; PCP Nurse Practitioner Adult Health
DX: R00.2 Palpitations (principal); R00.1 Bradycardia, unspecified; Z86.16 Personal history of COVID-19
CPT/HCPCS: 36415; 80053; 93005; 96360; 99284; 83735; 84443; 84484; 85025; 85379; 93010; 99283

== ENCOUNTER 2024-03-29 14:15 | Outpatient (CLI) | payer OTHER, SELFPAY ==
--- NOTE | 2024-03-29 15:03 | W.CARDEVENT ---
Date of service: 03/29/24 Time of Service: 15:03 Cardiac Event Recorder Referring Provider:: Shae Love Indications:: Tachycardia Cardiac Event Note: This is a cardiac event monitor. Patient was monitored for 11 days and 22 hours Rhythm throughout was sinus. Average heart rate was 78. Minimum was 58, maximum 170 There were no ventricular dysrhythmias There was no atrial fibrillation, no high-grade AV block, no pauses greater than 3 seconds . patient symptoms were reported. These corresponded to both sinus rhythm and sinus tachycardia
== END 2024-03-29 14:16 | disposition home or self-care (01) ==
LOC: CARDOPNVT 14:15
PROVIDERS: PCP Nurse Practitioner Adult Health; Visit Provider Internal Medicine Cardiovascular Disease
DX: R00.0 Tachycardia, unspecified (principal); R55 Syncope and collapse; G90.1 Familial dysautonomia [Riley-Day]

== ENCOUNTER 2024-03-29 19:21 | Outpatient (CLI) | payer OTHER, SELFPAY ==
[2024-03-30 21:24] LABS: Arsenic <1 ng/mL (<13); Cadmium <0.2 ng/mL (<5.0); Health Care Provider State Vermont; Mercury <1 ng/mL (<10); Patient Race White; Patient State Vermont; Venous/Capillary Venous
== END 2024-03-29 19:22 | disposition home or self-care (01) ==
LOC: LBO 19:21
PROVIDERS: PCP Nurse Practitioner Adult Health; Visit Provider Nurse Practitioner Adult Health
DX: G62.9 Polyneuropathy, unspecified (principal); R29.898 Other symptoms and signs involving the musculoskeletal system
CPT/HCPCS: 36415; 82175; 82300; 83655; 83825

== ENCOUNTER 2024-05-26 11:35 | Outpatient (CLI) | payer OTHER, SELFPAY ==
[2024-05-26 13:07] LABS: Vitamin B12 753 pg/mL (193-986)
[2024-05-26 22:17] LABS: Osmolality, Urine 402 mOsm/kg (150-1150)
[2024-05-26 23:03] LABS: Osmolality Serum 281 mOsm/kg (275-295)
[2024-05-27 10:39] LABS: Kappa Free Light Chain 1.27 mg/dL (0.33-1.94); Lambda Free Light Chain 0.77 mg/dL (0.57-2.63)
[2024-05-27 14:50] LABS: Albumin 62.2 % (55.8-66.1); Albumin g/dL 4.2 g/dL (3.6-5.2); Total Protein 6.7 g/dL (6.3-8.2)
[2024-05-28 14:13] LABS: Ro60 Ab, IgG <7.0 CU (<20.0); SS-A/Ro, IgG <2.3 CU (<20.0); SS-B (La) Ab, IgG <3.3 CU (<20.0); Tissue Transglutaminase IgA <4.0 CU (<20.0)
== END 2024-05-26 11:36 | disposition home or self-care (01) ==
LOC: LBO 11:38
PROVIDERS: PCP Nurse Practitioner Adult Health; Referring Provider Psychiatry & Neurology Neurology; Visit Provider Psychiatry & Neurology Neurology
DX: G90.A Postural orthostatic tachycardia syndrome [POTS] (principal)
CPT/HCPCS: 36415; 83520; 83935; 82607; 83883; 83930; 84165; 86235

== ENCOUNTER 2024-06-07 10:12 | Outpatient (REF) | payer OTHER, SELFPAY ==
[2024-06-07 22:22] LABS: Sodium, Urine 87 mmol/L
[2024-06-07 22:23] LABS: CLEAVED CELLS 174 mmol/24h (40-220); Total Volume 2000 ml
== END 2024-06-07 10:13 | disposition home or self-care (01) ==
LOC: LBN 10:12
PROVIDERS: PCP Nurse Practitioner Adult Health; Visit Provider Psychiatry & Neurology Neurology
DX: G90.A Postural orthostatic tachycardia syndrome [POTS] (principal)
CPT/HCPCS: 81050; 84300

== ENCOUNTER 2024-08-27 09:49 | Emergency (ER) | payer OTHER, SELFPAY ==
--- NOTE | 2024-08-27 09:45 | RT.EKG_ITS ---
APPROVED REPORT Exam: Resting ECG Reason for Exam: cardiac Patient Location: E HR:96 bpm ECG Measurements Heart Rate 96 AXIS NC 135 P 82 QRSd 88 QRS 89 QT 351 T 74 QTc 443 Conclusion Sinus rhythm...normal P axis, V-rate 60- 99
[2024-08-27 09:56] VITALS: BP 127/87; PULSE 90; RESP 17; TEMP 36.4; O2SAT 98
[2024-08-27 10:57] LABS: Abs Immature Grans 0.03 10^3/uL (0.0-0.06); Absolute Basophil Count 0.06 10^3/uL (0.0-0.2); Absolute Eosinophil Count 0.14 10^3/uL (0.0-0.7); Absolute Lymphocyte Count 1.53 10^3/uL (1.2-3.4); Absolute Monocyte Count 0.57 10^3/uL (0.1-0.8); Absolute Neutrophil Count 8.09 10^3/uL (1.2-6.7); Basophils % 0.6 %; Eosinophils % 1.3 %; HCT 47.9 % (36.0-46.0); HGB 15.8 g/dL (11.2-15.7); Immature Grans % 0.3 %; Lymphocytes % 14.7 %; MCH 29.8 pg (27.0-33.0); MCV 90 fL (80-95); MPV 9.4 fL (8.0-11.0); Monocytes % 5.5 %; Neutrophils % 77.6 %; Platelet Count 323 10^3/uL (130-400); RDW 11.7 % (11.7-14.6); RDW-SD 38.7 fL; WBC 10.42 10^3/uL (4.4-10.8)
[2024-08-27] MEDS: clonazePAM 0.5 MG TAB PO (10:59)
[2024-08-27 11:22] LABS: ALT 38 U/L (14-59); AST 21 U/L (15-37); Albumin 4.4 g/dL (3.4-5.0); Alkaline Phosphatase 70 U/L (46-116); Anion Gap 8.1 mmol/L (3-11); BUN 12 mg/dL (7-18); Bilirubin, Total 0.44 mg/dL (0.2-1.0); CO2 28.9 mmol/L (21.0-32.0); CREATININE 0.7 mg/dL (0.55-1.02); Calcium 9.5 mg/dL (8.5-10.1); Chloride 105 mmol/L (98-107); Estimated GFR 117.77 (mL/min/1.73m2); Glucose 82 mg/dL (74-106); Potassium 3.8 mmol/L (3.5-5.1); Sodium 142 mmol/L (136-145); TSH (W/Ref FT4) 2.28 uIU/mL (0.36-3.74)
[2024-08-27 11:23] LABS: Troponin I < 4 ng/L (<or=51)
[2024-08-27 12:10] VITALS: BP 113/76; PULSE 91; RESP 16; TEMP 36.8; O2SAT 98
[2024-08-27 13:42] LABS: Troponin I < 4 ng/L (<or=51)
[2024-08-27 14:08] VITALS: BP 110/72; PULSE 88; RESP 18; O2SAT 99
--- NOTE | 2024-08-27 14:19 | ED.GENADUL_ITS ---
Discharge Plan Disposition Patient Disposition: Home Condition: Stable Discharge Details Clinical Impression: Heart palpitations, Near syncope Primary Care Provider: Shae Love ED Provider: Dequan Rivera Home Meds and New Rx's Prescriptions: Continued magnesium glycinate 100 mg magnesium capsule 100 mg PO DAILY omeprazole 20 mg capsule,delayed release(DR/EC) 20 mg PO BID PRN Rx Instructions: Change in PPI 11/25/2022 (due to breakthrough symptoms) cholecalciferol (vitamin D3) 125 mcg (5,000 unit) tablet 125 mcg PO DAILY Complex B-100 Tablet Extended Release 1 tab PO DAILY clonazepam 0.5 mg tablet 0.25 - 0.5 mg PO BID PRN (Reason: acute anxiety) Qty: 14 0RF silexan 80 mg PO DAILY clindamycin phosphate 1 % solution 1 applic topical DAILY PRN (Reason: acne) Qty: 30 0RF omega-3 fatty acids [Fish Oil] 1 cap PO DAILY Claritin 10 mg tablet,chewable 10 mg PO DAILY PRN famotidine 20 mg tablet 20 mg PO QHS PRN epinephrine [EpiPen 2-Miguel A] 0.3 mg/0.3 mL auto-injector 0.3 mg IM ONCE PRN (Reason: anaphylaxis) Qty: 1 1RF Rx Instructions: as a single dose propranolol 10 mg tablet 5 - 10 mg PO BID PRN (Reason: tachycardia&anxiety) Qty: 180 3RF escitalopram oxalate 20 mg tablet 15 mg PO DAILY Discharge Instructions Instructions: Fainting, Adult ED, Palpitations ED Additional Instructions: Please avoid exertional activity and driving/operating heavy machinery until cleared by your doctor. Please drink plenty of fluids to stay hydrated. Please contact your primary care physician to arrange follow-up. Please schedule an appointment next week to be reassessed. Please be sure to turn in your Holter monitor after 48 hours. Return to the ER immediately for any worsening or new concerning symptoms. Referrals: Shae Love, [employer] [Primary Care Provider] - Discharge Data Discharge Date/Time-TO BE ENTERED AT DEPARTURE: 08/27/24 14:32 HPI General Mode of arrival: EMS . Date/Time Provider Initiated Documentation: 08/27/24 10:07 . Limitations to Documentation: no limitations . Information obtained by: patient . HPI Narrative: 34-year-old female with multiple medical problems including history of palpitations, symptomatic PVCs, obsessive-compulsive disorder, panic disorder, ocular migraine, thoracic outlet syndrome, chronic headaches, anxiety about health, restless leg syndrome, anxiety depression, here today with chief complaint of near syncope. Patient notes she was home, standing, not performing exertional activities, experienced sudden onset of heavy palpitations and feeling like she was going to pass out. She does note that she lost her vision for a moment. It felt like her heart was racing and she had to sit down on the floor. Patient took propranolol 5 mg just prior to arrival to the emergency department. Patient is concerned about the potential for life-threatening arrhythmia. On arrival she does note that she still feeling palpitations. She has no chest pain or shortness of breath. No associated recent illness. Related Data Home Medications ?Medication ?Instructions ?Recorded ?Confirmed magnesium glycinate 100 mg PO DAILY 12/20/22 08/27/24 cholecalciferol (vitamin D3) 125 125 mcg PO DAILY 03/03/23 08/27/24 mcg (5,000 unit) tablet omeprazole 20 mg capsule,delayed 20 mg PO BID PRN 05/20/23 08/27/24 release famotidine 20 mg tablet 20 mg PO QHS PRN 11/17/23 08/27/24 epinephrine 0.3 mg/0.3 mL 0.3 mg (0.3 mL) IM ONCE PRN 12/29/23 08/27/24 injection, auto-injector (EpiPen anaphylaxis #1 ea 2-Miguel A) vitamin B complex (Complex B-100 1 tab PO DAILY 02/25/24 08/27/24 tablet,extended release) clonazepam 0.5 mg tablet 0.25 - 0.5 mg (0.5 - 1 x 0.5 mg) 03/11/24 08/27/24 PO BID PRN acute anxiety #14 tabs propranolol 10 mg tablet 5 - 10 mg (0.5 - 1 x 10 mg) PO BID 04/07/24 08/27/24 PRN tachycardia&anxiety #180 tabs clindamycin phosphate 1 % topical 1 applic topical DAILY PRN acne 04/14/24 08/27/24 solution #30 mL silexan 80 mg PO DAILY 04/14/24 08/27/24 escitalopram oxalate 20 mg tablet 15 mg PO DAILY 08/23/24 08/27/24 loratadine 10 mg chewable tablet 10 mg PO DAILY PRN 08/23/24 08/27/24 (Claritin) omega-3 fatty acids 1 cap PO DAILY 08/23/24 08/27/24 Previous Rx's ?Medication ?Instructions ?Recorded epinephrine 0.3 mg/0.3 mL 0.3 mg (0.3 mL) IM ONCE PRN 12/29/23 injection, auto-injector (EpiPen anaphylaxis #1 ea 2-Miguel A) clonazepam 0.5 mg tablet 0.25 - 0.5 mg (0.5 - 1 x 0.5 mg) 03/11/24 PO BID PRN acute anxiety #14 tabs propranolol 10 mg tablet 5 - 10 mg (0.5 - 1 x 10 mg) PO BID 04/07/24 PRN tachycardia&anxiety #180 tabs clindamycin phosphate 1 % topical 1 applic topical DAILY PRN acne 04/14/24 solution #30 mL Allergies Allergy/AdvReac Type Severity Reaction Status Date / Time bee venom protein (honey bee) Allergy Severe Anaphylaxis Verified 08/27/24 10:09 General Stated Complaint: Palpitatns ROCHELLE: 3 Review of Systems All systems reviewed & are unremarkable except as noted in HPI and below Constitutional Constitutional: Denies fever(s) Cardiovascular Cardiovascular: Reports as per HPI and Denies chest pain Exam Const General: cooperative Orientation: alert and awake [facility] Mouth: moist mucous membranes Eyes Conjunctivae: normal conjunctivae Sclera: normal sclerae Neck Neck: trachea midline Resp Auscultation: clear to auscultation bilaterally, no rales, no rhonchi and no wheezes Cardio Rate: regular rate and not tachycardic Rhythm: regular rhythm Heart Sounds: no click, no gallops, no murmurs and no rubs GI Palpation: soft, not firm, no guarding, no masses, not rigid and nontender Skin General skin exam: no rashes or lesions noted Neuro General: patient alert, patient awake, patient oriented x3 and tone normal Extrem General: no calf tenderness and no edema Psych Appearance: grossly normal Mental Status: mental status grossly normal Speech and Movement: speech and movement normal Affect: anxious affect Course Vital Signs Vital signs: Vital Signs Temperature 36.4 C L 08/27/24 09:56 Pulse 90 08/27/24 09:56 Respiratory Rate 17 08/27/24 09:56 Blood Pressure 127/87 08/27/24 09:56 Pulse Oximetry 98 08/27/24 09:56 Temperature 36.8 C 08/27/24 12:10 Temperature Source Oral 08/27/24 12:10 Pulse 88 08/27/24 14:08 Respiratory Rate 18 08/27/24 14:08 Blood Pressure 110/72 08/27/24 14:08 Blood Pressure Position Sitting 08/27/24 09:56 Pulse Oximetry 99 08/27/24 14:08 Oxygen Delivery Method Room Air 08/27/24 14:08 Oxygen Flow Rate 0 08/27/24 14:08 Pain Level 0 08/27/24 09:56 Lab/Test Results Lab/Test Results: Laboratory Tests Range/Units 08/27/24 08/27/24 10:55 12:55 WBC (4.4-10.8) 10^3/uL 10.42 RBC (3.93-5.22) 10^6/uL 5.30 H Hgb (11.2-15.7) g/dL 15.8 H Hct (36.0-46.0) % 47.9 H MCV (80-95) fL 90 MCH (27.0-33.0) pg 29.8 MCHC (32.0-36.0) % 33.0 RDW (11.7-14.6) % 11.7 Plt Count (130-400) 10^3/uL 323 MPV (8.0-11.0) fL 9.4 Immature Gran % % 0.3 Neutrophils % % 77.6 Lymphocytes % % 14.7 Monocytes % % 5.5 Eosinophils % % 1.3 Basophils % % 0.6 Nucleated RBC % (0.0-0.3) % 0.0 Absolute Neutrophils (1.2-6.7) 10^3/uL 8.09 H Absolute Lymphocytes (1.2-3.4) 10^3/uL 1.53 Absolute Monocytes (0.1-0.8) 10^3/uL 0.57 Absolute Eosinophils (0.0-0.7) 10^3/uL 0.14 Absolute Basophils (0.0-0.2) 10^3/uL 0.06 Sodium (136-145) mmol/L 142 Potassium (3.5-5.1) mmol/L 3.8 Chloride (98-107) mmol/L 105 Carbon Dioxide (21.0-32.0) mmol/L 28.9 Anion Gap (3-11) mmol/L 8.1 BUN (7-18) mg/dL 12 Creatinine (0.55-1.02) mg/dL 0.7 Est GFR (CKD-EPI 2020) (mL/min/1.73m2) 117.77 Glucose (74-106) mg/dL 82 Calcium (8.5-10.1) mg/dL 9.5 Magnesium (1.8-2.4) mg/dL 2.0 Total Bilirubin (0.2-1.0) mg/dL 0.44 AST (15-37) U/L 21 ALT (14-59) U/L 38 Alkaline Phosphatase (46-116) U/L 70 Troponin I (<or=51) ng/L < 4 < 4 Total Protein (6.4-8.2) g/dL 8.0 Albumin (3.4-5.0) g/dL 4.4 TSH (0.36-3.74) uIU/mL 2.28 POC- Test(urine) Negative Medical Decision Making 34[facility] including history of palpitations in the past, obsessive-compulsive disorder, panic disorder, here with near syncope and palpitations just prior to arrival. Patient is now saturating well in no respiratory distress. She is hemodynamically stable. Consider arrhythmia. EKG was reviewed interpreted by me: Please report, nondiagnostic. Anxiety may be contributing to her presentation today. She was given a dose of clonazepam for anxiolysis. Consider acute coronary event. Initial troponin negative. Delta troponin negative. Consider electrolyte abnormality. Consider also hyperthyroidism. Labs reviewed and nondiagnostic. Considered acute pulmonary embolism. PERC criteria applied. Patient was monitored here in the Emergency Department for prolonged period of time and had no arrhythmia on surveillance system monitor. No recurrent symptoms. Ambulating without difficulty on reassessment. Patient remains hemodynamically stable. Plan at this time will be to place Holter monitor, although patient has had negative Holter workups in the past, repeat testing is indicated at this time. Holter monitor to be placed here prior to discharge with plan for close outpatient follow-up with PCP. Usual customary discharge instructions were reviewed with the patient. She was encouraged to return immediately for any worsening or new concerning symptoms. Patient verbalized understanding of discharge instructions and was agreeable with plan. Plan Lab Data Lab results reviewed: Yes I reviewed the patient's lab results. Labs: Laboratory Tests Range/Units 08/27/24 08/27/24 10:55 12:55 WBC (4.4-10.8) 10^3/uL 10.42 RBC (3.93-5.22) 10^6/uL 5.30 H Hgb (11.2-15.7) g/dL 15.8 H Hct (36.0-46.0) % 47.9 H MCV (80-95) fL 90 MCH (27.0-33.0) pg 29.8 MCHC (32.0-36.0) % 33.0 RDW (11.7-14.6) % 11.7 Plt Count (130-400) 10^3/uL 323 MPV (8.0-11.0) fL 9.4 Immature Gran % % 0.3 Neutrophils % % 77.6 Lymphocytes % % 14.7 Monocytes % % 5.5 Eosinophils % % 1.3 Basophils % % 0.6 Nucleated RBC % (0.0-0.3) % 0.0 Absolute Neutrophils (1.2-6.7) 10^3/uL 8.09 H Absolute Lymphocytes (1.2-3.4) 10^3/uL 1.53 Absolute Monocytes (0.1-0.8) 10^3/uL 0.57 Absolute Eosinophils (0.0-0.7) 10^3/uL 0.14 Absolute Basophils (0.0-0.2) 10^3/uL 0.06 Sodium (136-145) mmol/L 142 Potassium (3.5-5.1) mmol/L 3.8 Chloride (98-107) mmol/L 105 Carbon Dioxide (21.0-32.0) mmol/L 28.9 Anion Gap (3-11) mmol/L 8.1 BUN (7-18) mg/dL 12 Creatinine (0.55-1.02) mg/dL 0.7 Est GFR (CKD-EPI 2020) (mL/min/1.73m2) 117.77 Glucose (74-106) mg/dL 82 Calcium (8.5-10.1) mg/dL 9.5 Magnesium (1.8-2.4) mg/dL 2.0 Total Bilirubin (0.2-1.0) mg/dL 0.44 AST (15-37) U/L 21 ALT (14-59) U/L 38 Alkaline Phosphatase (46-116) U/L 70 Troponin I (<or=51) ng/L < 4 < 4 Total Protein (6.4-8.2) g/dL 8.0 Albumin (3.4-5.0) g/dL 4.4 TSH (0.36-3.74) uIU/mL 2.28 Quality:SDOH Health Related Social Needs: No Data to Display PFSH All Active Problems (Updated 08/27/24 @ 14:20 by Dequan Rivera MD) Near syncope (Acute) Heart palpitations (Acute) Macromastia (Acute) Obsessive-compulsive disorder, unspecified (Acute ~2023) [facility] Panic disorder (Acute ~02/2024) [facility] 03/24/24 Numbness and tingling of both legs (Acute) Leg weakness, bilateral (Acute) Ocular migraine (Acute) Cubital tunnel syndrome on right (Acute) Paresthesia and pain of both upper extremities (Acute ~05/2023) Thoracic outlet syndrome of right thoracic outlet (Acute) Superior labrum [id number] (SLAP) tear of right shoulder (Acute) Cervical radiculopathy at C8 (Acute ~05/2023) Tingling in extremities (Acute) on/off, presumed from work; follows ulnar and/or C8 pattern Upper back strain (Acute) Neck pain (Acute) Exacerbation w/o injury; Hx injury (horse head butt)(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 05/2021. Referral for eval for pelvic floor PT. Numerous skin moles Abd mole/skin tag; Rt arm mole/ingrown hair(?); Left knee excoriated mole (possible punch Bx for removal and Dx?) Abnormal auditory perception (~01/15/21) Halitosis (~01/15/21) Tonsil stone (~01/15/21) Tinnitus (~01/15/21) 12/2020 No CATS diet ENT Recurrent canker sores Internal nasal lesion Left nare, papule per Hx ... but recently pulled off. [ ] sample [ ] ENT eval Paresthesia 2020 normal brain MRI Palpitations 2020: normal TSH & normal 14-day surveillance system monitor; anxiety likely etiology Enlarged thyroid On PE only; consider F/U U/S 1 year in 2020; 2019 U/S essentially normal with normal size; normal TSH Fracture of transverse process of thoracic vertebra Left rib fracture Pneumothorax, left Facial trauma kicked by a horse, consult with [facility] [place] Muller 02/09/19=closed subondular fx L side of mandible RH Migraine headache without aura Surgical History H/O esophagogastroduodenoscopy (~02/27/23) With Biopsy-[facility] History of excision of lesion 3 moles removed in office [place] teeth extraction EGD - MAC (10/10/17) Family History Maternal Grandfather Cardiovascular disease Maternal Grandmother Alzheimer's disease Migraine Anxiety Mother Migraine Anxiety Ulcerative colitis Hypertension S/P cholecystectomy Father Hypertension Esophageal cancer Nicotine use Other Heart disease Social History Smoking/Tobacco Use Status: Never Second Hand Exposure: Yes Smoking risk assessment performed?: Yes Alcohol Intake: current Alcohol Intake frequency: holidays/special occasions only Alcohol type: wine Drug use: Never Substance use type: does not use Adopted: No Caregiver/Support person: No Foster care: No Household members: none Housing: apartment Number of Children: 0 number of grandchildren: 0 Communication Needs: None Education Level: college Do you need help understanding health information?: Never 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 Pets and animals: Yes (2) Pets and animals: dog(s) Sexually active: Yes Do you think of yourself as: straight/heterosexual Current gender identity: female What is your relationship status?: never How often do you talk on the phone with friends or family?: three or more times per week How often do you get together with friends or relatives?: three or more times per week Do you belong to any clubs or organized social groups?: no Panel score (0-1 are the most socially isolated patients): 1 What type of physical activity do you participate in: walking, bicycling and regular exercise Duration: 30-45 minutes/day Frequency: 5-6 times per week Maria Eugenia/Baptism: None Special maria eugenia needs: No Seatbelt use: always Helmet use: Yes Drive intox or ride w/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
[2024-08-27 14:25] VITALS: BP 114/80; PULSE 92; RESP 16; O2SAT 99
== END 2024-08-27 14:32 | disposition home or self-care (01) ==
PROVIDERS: Emergency Provider Student in an Organized Health Care Education/Training Program; PCP Nurse Practitioner Adult Health
DX: R00.2 Palpitations (principal); R55 Syncope and collapse
CPT/HCPCS: 36415; 80053; 81025; 93005; 99283; 83735; 84443; 84484; 85025; 93010; 93225

== ENCOUNTER 2024-08-27 13:24 | Outpatient (RCR) | payer OTHER, SELFPAY ==
--- NOTE | 2024-08-31 10:34 | W.HOLTRPT ---
Date of service: 08/31/24 Time of Service: 10:34 Holter Monitor Report Referring Provider:: Dequan Rivera Indications:: Palpitations Holter Monitor Note: This is a 48-hour Holter monitor Rhythm throughout was sinus with an average heart rate of 80. Minimum was 52, maximum 140. There were no ventricular dysrhythmias. There were 9 premature atrial contractions. There was no atrial fibrillation, no high-grade AV block, no pauses greater than 3 seconds. Symptoms were reported which correlated to sinus rhythm in the 70s, not to any dysrhythmia
== END 2024-09-24 23:59 | disposition home or self-care (01) ==
LOC: CARDOPNVT 13:24
PROVIDERS: PCP Nurse Practitioner Adult Health; Referring Provider Internal Medicine Cardiovascular Disease; Visit Provider Internal Medicine Cardiovascular Disease
DX: R00.2 Palpitations (principal); I49.1 Atrial premature depolarization
CPT/HCPCS: 93225; 93226

== ENCOUNTER 2024-11-05 13:00 | Emergency (ER) | payer OTHER, SELFPAY ==
[2024-11-05 13:06] VITALS: BP 124/80; PULSE 92; RESP 16; TEMP 36.2; O2SAT 100
--- NOTE | 2024-11-05 13:11 | ED.GENADUL_ITS ---
Discharge Plan Disposition Patient Disposition: Home Discharge Details Clinical Impression: Traumatic ecchymosis of left thigh Primary Care Provider: Shae Love ED Provider: Jr Cabrales Home Meds and New Rx's Prescriptions: Continued magnesium glycinate 100 mg magnesium capsule 100 mg PO DAILY omeprazole 20 mg capsule,delayed release(DR/EC) 20 mg PO BID PRN Rx Instructions: Change in PPI 11/25/2022 (due to breakthrough symptoms) cholecalciferol (vitamin D3) 125 mcg (5,000 unit) tablet 125 mcg PO DAILY clonazepam 0.5 mg tablet 0.25 - 0.5 mg PO BID PRN (Reason: acute anxiety) Qty: 14 0RF silexan 80 mg PO DAILY clindamycin phosphate 1 % solution 1 applic topical DAILY PRN (Reason: acne) Qty: 30 0RF omega-3 fatty acids [Fish Oil] 1 cap PO DAILY Claritin 10 mg tablet,chewable 10 mg PO DAILY PRN famotidine 20 mg tablet 20 mg PO QHS PRN epinephrine [EpiPen 2-Miguel A] 0.3 mg/0.3 mL auto-injector 0.3 mg IM ONCE PRN (Reason: anaphylaxis) Qty: 1 1RF Rx Instructions: as a single dose propranolol 10 mg tablet 5 - 10 mg PO BID PRN (Reason: tachycardia&anxiety) Qty: 180 3RF escitalopram oxalate 20 mg tablet 20 mg PO DAILY acetylcysteine 600 mg capsule 1,200 mg PO BID Patient Comments: TAKE TWO CAPSULES BY MOUTH TWICE DAILY Discharge Instructions Instructions: Minor Contusion ED Additional Instructions: You are seen in the emergency department for your bruise. Your x-ray showed no sign of any fractures. As we discussed please return to the emergency department if you develop increasing pain cannot feel your left lower extremity. Otherwise please keep your leg wrapped for the next several days under an Lauro wrap and relax at home. For your pain please take medications as follows: 1. Take acetaminophen (Tylenol), 1,000 mg (two 500 mg tabs) every 6 hours [2. Take ibuprofen (Advil), 400 mg every 6 hours.] HPI General Date/Time Provider Initiated Documentation: 11/05/24 13:11 . HPI Narrative: MDM Primary survey intact. Reassuring shock index. On secondary survey patient has bruise to anterior left femur pain x-ray negative for fracture. Compartments are soft so not concern for compartment syndrome. Given duration of time since injury earlier today and not concern for any ruptured blood vessels which could develop into compartment syndrome as patient is not anticoagulated so did not feel that she required a CT angiogram of her left lower extremity. No fevers to suggest septic joint. She has warm well-perfused left foot some not concern for critical limb ischemia. We discussed that she should rest over the weekend use a compressive Lauro dressing and take acetaminophen ibuprofen as needed. She will return if her symptoms worsen. HPI This is a 34-year-old female not on any anticoagulants arrived to the emergency department via private vehicle in the setting of bruise to her left anterior thigh earlier today. Patient was reportedly outside and kicked by a horse. She took 600 mg ibuprofen. She is worried about the possibility of injury to her underlying femur. She has pain with bearing weight on her left lower extremity. Pain radiates up into her hip and down to her knee. She did not strike her head. She did not fall. Exam General: Well-appearing in no acute distress speaking in complete sentences. Head: Normocephalic, atraumatic. Eye: Extraocular eye movements intact. No conjunctival injection. No scleral icterus. Ear, nose, mouth, throat: Grossly normal inspection. Normal voice, handling se cretions normally. Neck: Trachea midline. Cardiovascular: Well-perfused distal extremities. Respiratory: Nonlabored respiration. Gastrointestinal: Nondistended abdomen. Musculoskeletal: Left lower extremity warm well-perfused 2+ PT and DP pulses. On the anterior aspect of left thigh there is an approximately 3 x 3 cm ecchymotic area. Soft compartments. Knee stable. Patient is able to straight leg raise. Skin: Normal for age and race, grossly normal temperature and turgor. No acute rash. Neurologic: Alert and appropriate, no apparent acute deficits. Psychiatric: Mood and manner are appropriate. Grooming and personal hygiene are appropriate. Related Data Home Medications ?Medication ?Instructions ?Recorded ?Confirmed magnesium glycinate 100 mg PO DAILY 12/20/22 11/05/24 cholecalciferol (vitamin D3) 125 125 mcg PO DAILY 03/03/23 11/05/24 mcg (5,000 unit) tablet omeprazole 20 mg capsule,delayed 20 mg PO BID PRN 05/20/23 11/05/24 release famotidine 20 mg tablet 20 mg PO QHS PRN 11/17/23 11/05/24 epinephrine 0.3 mg/0.3 mL 0.3 mg (0.3 mL) IM ONCE PRN 12/29/23 11/05/24 injection, auto-injector (EpiPen anaphylaxis #1 ea 2-Miguel A) clonazepam 0.5 mg tablet 0.25 - 0.5 mg (0.5 - 1 x 0.5 mg) 03/11/24 11/05/24 PO BID PRN acute anxiety #14 tabs propranolol 10 mg tablet 5 - 10 mg (0.5 - 1 x 10 mg) PO BID 04/07/24 11/05/24 PRN tachycardia&anxiety #180 tabs clindamycin phosphate 1 % topical 1 applic topical DAILY PRN acne 04/14/24 11/05/24 solution #30 mL silexan 80 mg PO DAILY 04/14/24 11/05/24 escitalopram oxalate 20 mg tablet 20 mg PO DAILY 08/23/24 11/05/24 loratadine 10 mg chewable tablet 10 mg PO DAILY PRN 08/23/24 11/05/24 (Claritin) omega-3 fatty acids 1 cap PO DAILY 08/23/24 11/05/24 acetylcysteine 600 mg capsule 1,200 mg PO BID 11/05/24 11/05/24 Previous Rx's ?Medication ?Instructions ?Recorded epinephrine 0.3 mg/0.3 mL 0.3 mg (0.3 mL) IM ONCE PRN 12/29/23 injection, auto-injector (EpiPen anaphylaxis #1 ea 2-Miguel A) clonazepam 0.5 mg tablet 0.25 - 0.5 mg (0.5 - 1 x 0.5 mg) 03/11/24 PO BID PRN acute anxiety #14 tabs propranolol 10 mg tablet 5 - 10 mg (0.5 - 1 x 10 mg) PO BID 04/07/24 PRN tachycardia&anxiety #180 tabs clindamycin phosphate 1 % topical 1 applic topical DAILY PRN acne 04/14/24 solution #30 mL Allergies Allergy/AdvReac Type Severity Reaction Status Date / Time bee venom protein (honey bee) Allergy Severe Anaphylaxis Verified 11/05/24 13:12 General Stated Complaint: Orthopedic ROCHELLE: 3 Course Vital Signs Vital signs: Vital Signs Temperature 36.2 C L 11/05/24 13:06 Pulse 92 H 11/05/24 13:06 Respiratory Rate 16 11/05/24 13:06 Blood Pressure 124/80 11/05/24 13:06 Pulse Oximetry 100 11/05/24 13:06 Temperature 36.2 C L 11/05/24 13:06 Temperature Source Oral 11/05/24 13:06 Pulse 92 H 11/05/24 13:06 Respiratory Rate 16 11/05/24 13:06 Blood Pressure 124/80 11/05/24 13:06 Blood Pressure Position Sitting 11/05/24 13:06 Pulse Oximetry 100 11/05/24 13:06 Oxygen Delivery Method Room Air 11/05/24 13:06 Oxygen Flow Rate 0 11/05/24 13:06 Pain Level 5 11/05/24 13:06 Medical Decision Making Quality:SDOH Health Related Social Needs: No Data to Display PFSH All Active Problems (Updated 11/05/24 @ 14:35 by Jr Cabrales MD) Traumatic ecchymosis of left thigh (Acute) Macromastia (Acute) Obsessive-compulsive disorder, unspecified (Acute ~2023) [facility] Panic disorder (Acute ~02/2024) [facility] 03/24/24 Numbness and tingling of both legs (Acute) Leg weakness, bilateral (Acute) Ocular migraine (Acute) Cubital tunnel syndrome on right (Acute) Paresthesia and pain of both upper extremities (Acute ~05/2023) Thoracic outlet syndrome of right thoracic outlet (Acute) Superior labrum [id number] (SLAP) tear of right shoulder (Acute) Cervical radiculopathy at C8 (Acute ~05/2023) Tingling in extremities (Acute) on/off, presumed from work; follows ulnar and/or C8 pattern Upper back strain (Acute) Neck pain (Acute) Exacerbation w/o injury; Hx injury (horse head butt)(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 05/2021. Referral for eval for pelvic floor PT. Numerous skin moles Abd mole/skin tag; Rt arm mole/ingrown hair(?); Left knee excoriated mole (possible punch Bx for removal and Dx?) Abnormal auditory perception (~01/15/21) Halitosis (~01/15/21) Tonsil stone (~01/15/21) Tinnitus (~01/15/21) 12/2020 No CATS diet ENT Recurrent canker sores Internal nasal lesion Left nare, papule per Hx ... but recently pulled off. 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 Muller 02/09/19=closed subondular fx L side of mandible RH Migraine headache without aura Surgical History H/O esophagogastroduodenoscopy (~02/27/23) With Biopsy-[facility] History of excision of lesion 3 moles removed in office [place] teeth extraction EGD - [facility] (10/10/17) Family History Maternal Grandfather Cardiovascular disease Maternal Grandmother Alzheimer's disease Migraine Anxiety Mother Migraine Anxiety Ulcerative colitis Hypertension S/P cholecystectomy Father Hypertension Esophageal cancer Nicotine use Other Heart disease Social History Smoking/Tobacco Use Status: Never Second Hand Exposure: Yes Smoking risk assessment performed?: Yes Alcohol Intake: current Alcohol Intake frequency: holidays/special occasions only Alcohol type: wine Drug use: Never Substance use type: does not use Adopted: No Caregiver/Support person: No Foster care: No Household members: none Housing: apartment Number of Children: 0 number of grandchildren: 0 Communication Needs: None Education Level: college Do you need help understanding health information?: Never 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 Pets and animals: Yes (2) Pets and animals: dog(s) Sexually active: Yes Do you think of yourself as: straight/heterosexual Current gender identity: female What is your relationship status?: never How often do you talk on the phone with friends or family?: three or more times per week How often do you get together with friends or relatives?: three or more times per week Do you belong to any clubs or organized social groups?: no Panel score (0-1 are the most socially isolated patients): 1 What type of physical activity do you participate in: walking, bicycling and regular exercise Duration: 30-45 minutes/day Frequency: 5-6 times per week Maria Eugenia/Gnosticist: None Special maria eugenia needs: No Seatbelt use: always Helmet use: Yes Drive intox or ride w/intox swing driver: No Working smoke detector in home: Yes Fire extinguisher in home: Yes Carbon monox detector in home: Yes Firearms in home: Yes Firearms unloaded and locked: No Do you feel safe at home: Yes Do you feel safe in your relationship?: Yes Female Reproductive History Menstrual control method: progestin IUCD History History 0 Para Hx # Term Pregnancies Multiple births Hx # Pregnancies Ectopic pregnancies AB induced Hx Number of Living Children AB spontaneous
--- NOTE | 2024-11-05 13:30 | DI.RAD_ITS ---
Exam(s) XR FEMUR LT EXAM: XR FEMUR LT CLINICAL HISTORY: Left thigh pain kicked by horse. TECHNIQUE: 2D digital imaging was performed. COMPARISON: No exams were available for comparison FINDINGS: Two views-AP and lateral No evidence of fracture at the level the hip and remainder of the femur. Bone density is normal. No osseous lesions. There are no degenerative changes in the hip joint. However, there does appear to be some increased density in the subcutaneous fat layer over the lateral aspect of the hip. Probabl e hematoma given the direct trauma history. IMPRESSION: No acute osseous findings in the hip and femur. Soft tissue density in the subcutaneous layer over the lateral aspect of the hip which may correspond to hematoma given the direct trauma history here. DATA REPOSITORY: RADIATION DOSE DELIVERED:
[2024-11-05 14:49] VITALS: BP 122/87; PULSE 86; RESP 14; O2SAT 99
== END 2024-11-05 14:49 | disposition home or self-care (01) ==
PROVIDERS: Emergency Provider Emergency Medicine; PCP Nurse Practitioner Adult Health
DX: S70.12XA Contusion of left thigh, initial encounter (principal); W55.12XA Struck by horse, initial encounter
CPT/HCPCS: 73552; 81025; 99283

== ENCOUNTER 2024-11-30 12:52 | Outpatient (CLI) | payer OTHER, SELFPAY ==
--- NOTE | 2024-11-30 11:30 | DI.RAD_ITS ---
Exam(s) XR HIP LT AP LAT ONLY EXAM: XR HIP LT AP LAT ONLY CLINICAL HISTORY: F/U THIGH CONTUSION. TECHNIQUE: 2D digital imaging was performed. Two views. COMPARISON: CR XR FEMUR LT from 11/05/2024 FINDINGS: BONES: No acute fracture is present. No bony destructive lesion is seen. JOINTS: No dislocation present. The SI joints and pubic symphysis are intact. No significant degenera tive changes. SOFT TISSUE: Normal. IMPRESSION: Unremarkable radiographs of the left hip. DATA REPOSITORY: RADIATION DOSE DELIVERED:
== END 2024-11-30 12:53 | disposition home or self-care (01) ==
LOC: DIORS 12:52
PROVIDERS: PCP Nurse Practitioner Adult Health; Visit Provider Student in an Organized Health Care Education/Training Program
DX: S70.12XA Contusion of left thigh, initial encounter (principal); X58.XXXA Exposure to other specified factors, initial encounter
CPT/HCPCS: 73502

== ENCOUNTER 2025-06-30 09:08 | Outpatient (REF) | payer OTHER, SELFPAY | END 2025-06-30 09:09 | disposition home or self-care (01) | LOC: LBN 09:08 | PROVIDERS: PCP Nurse Practitioner Adult Health | DX: J02.9 Acute pharyngitis, unspecified (principal) | CPT/HCPCS: 87070 ==

== ENCOUNTER 2025-08-15 01:46 | Outpatient (CLI) | payer OTHER, SELFPAY ==
[2025-08-15 13:02] LABS: Abs Immature Grans 0.02 10^3/uL (0.0-0.06); HCT 38.3 % (36.0-46.0); HGB 12.6 g/dL (11.2-15.7); Immature Grans % 0.3 %; MCH 29.4 pg (27.0-33.0); MCHC 32.9 % (32.0-36.0); MCV 90 fL (80-95); MPV 9.5 fL (8.0-11.0); Platelet Count 310 10^3/uL (130-400); RBC 4.28 10^6/uL (3.93-5.22); RDW 12.4 % (11.7-14.6); RDW-SD 41.0 fL; WBC 7.40 10^3/uL (4.4-10.8)
[2025-08-15 13:52] LABS: Hemoglobin A1C 5.0 % (<5.7)
[2025-08-15 14:21] LABS: ALT 13 U/L (10-49); AST 17 U/L (<34); Albumin 3.9 g/dL (3.2-5.0); Alkaline Phosphatase 64 U/L (46-116); Anion Gap 8.3 mmol/L (3-11); BUN 15 mg/dL (9-23); Bilirubin, Total 0.4 mg/dL (0.2-1.2); CO2 24.7 mmol/L (20.0-31.0); Calcium 9.3 mg/dL (8.3-10.6); Chloride 108 mmol/L (98-107); Glucose 89 mg/dL (74-106); Potassium 4.0 mmol/L (3.5-5.1); Sodium 141 mmol/L (136-145); Total Protein 6.8 g/dL (5.7-8.2); Vitamin B12 596 pg/mL (211-911)
[2025-08-15 14:22] LABS: Folate 22.8 ng/mL (>5.38); TSH (W/Ref FT4) 1.77 uIU/mL (0.55-4.78)
[2025-08-15 19:27] LABS: Lab Add On Test DONE
[2025-08-15 19:45] LABS: Cholesterol 177 mg/dL (<200); HDL Cholesterol 57 mg/dL (>or=50)
== END 2025-08-15 01:47 | disposition home or self-care (01) ==
LOC: LBO 01:47
PROVIDERS: PCP Nurse Practitioner Adult Health; Visit Provider Nurse Practitioner Adult Health
DX: Z13.1 Encounter for screening for diabetes mellitus (principal); R20.2 Paresthesia of skin; M79.601 Pain in right arm; M79.602 Pain in left arm; I49.3 Ventricular premature depolarization; Z51.81 Encounter for therapeutic drug level monitoring; Z13.220 Encounter for screening for lipoid disorders
CPT/HCPCS: 36415; 80053; 80061; 82607; 82746; 83036; 84443; 85025